=== PATIENT | female | born 2000 | race Hispanic/Latino ===

== ENCOUNTER 2021-04-07 10:13 | Emergency (ER) | payer OTHER, SELFPAY ==
--- OUTSIDE RECORDS SUMMARY | 2021-04-07 10:17 | XMS REPORT | Continuity of Care Document ---
:2000 Author Organization [facility] t Address [address] [place] [address] Care Team Providers Name Role Phone Unavailable Unavailable Unavailable Problems This patient has no known problems. Allergies, Adverse Reactions, Alerts This patient has no known allergies or adverse reactions. Medications This patient has no known medications. Procedures This patient has no known procedures. Encounters Start End Encounter Admission Attending Care Care Encounter Source Date/Time Date/Time Type Type Clinicians Facility Department ID 2018-06-20 Inpatient E [facility] [address] [facility] 22:38:00 2018-07-06 2018-07-06 Outpatient E [id number] 15:12:00 15:12:00 2018-07-04 2018-07-04 Emergency E [facility] [address] [facility] 18:56:00 18:56:00 2018-05-01 2018-05-01 Emergency E [facility] [id number] 07:59:00 07:59:00 [facility] 2018-04-29 2018-04-29 Outpatient [facility] [id number] 05:13:00 05:13:00 [facility] Results This patient has no known results.
--- NOTE | 2021-04-07 12:46 | ER ---
Nurse's Notes [facility] Name: Morena Fuentes Age: 20 yrs Sex: Female : 2000 Arrival Date: 04/07/2021 Time: 10:23 Bed Treatment Private MD: Diagnosis: Acute streptococcal tonsillitis, unspecified Presentation: 04/07 11:36 Chief complaint: Patient states: cough, chills and body aches, and difficulty breathing vg1 began yesterday. Denies NVD. Coronavirus screen: Vaccine status: Patient reports receiving the 2nd dose of the covid vaccine. Client denies travel out of the [place] in the last 14 days. Client presents with at least one sign or symptom that may indicate coronavirus-19. Standard/surgical mask placed on the client. Ebola Screen: Patient negative for fever greater than or equal to 101.5 degrees Fahrenheit, and additional compatible Ebola Virus Disease symptoms. Initial Sepsis Screen: Does the patient meet any 2 criteria? No. Patient's initial sepsis screen is negative. Does the patient have a suspected source of infection? No. Patient's initial sepsis screen is negative. Risk Assessment: Do you want to hurt yourself or someone else? Patient reports no desire to harm self or others. Onset of symptoms was April 06, 2021. 11:36 Method Of Arrival: Ambulatory vg1 11:36 Acuity: OSCAR 4 vg1 Triage Assessment: 11:38 General: Appears in no apparent distress. comfortable, Behavior is calm, cooperative. vg1 Pain: Complains of pain in generalized body aches Pain currently is 9 out of 10 on a pain scale. Neuro: Level of Consciousness is awake, alert, obeys commands, Oriented to person, place, time, situation. Respiratory: Airway is patent Respiratory effort is even, unlabored. 19:08 General: Appears. 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 - Social history:: Smoking status: Patient reports the use of cigarette tobacco products, denies chronic smoking, but will smoke occasionally. Screenin:56 Abuse screen: Denies threats or abuse. Denies injuries from another. Nutritional iw screening: No deficits noted. Tuberculosis screening: No symptoms or risk factors identified. Fall Risk None identified. Assessment: 12:40 General: Appears in no apparent distress. Behavior is calm, cooperative. Neuro: Level iw of Consciousness is awake, alert, obeys commands, Oriented to person, place, time, situation, Moves all extremities. Full function. Respiratory: Respiratory effort is even, unlabored, Respiratory pattern is regular. Derm: Skin is intact, is healthy with good turgor. Vital Signs: 11:36 BP 133 / 85; Pulse 90; Resp 16; Temp 97.9; Pulse Ox 100% ; Weight 104.33 kg; Height 5 vg1 ft. 5 in. (165.10 cm); Pain 9/10; 11:36 Body Mass Index 38.27 (104.33 kg, 165.10 cm) vg1 ED Course: 10:23 Patient arrived in ED. ds1 11:38 Triage completed. vg1 11:38 Arm band placed on. vg1 11:41 COVID swab sent to lab. Flu and/or RSV swab sent to lab. Strep swab sent to lab. vg1 12:40 Patient has correct armband on for positive identification. iw 12:45 [facility] jr8 12:45 Ariela Ahmadi MD is Attending Physician. jr8 12:52 Jaqueline Da Silva, RN is Primary Nurse. iw 12:56 No provider procedures requiring assistance completed. Patient did not have IV access iw during this emergency room visit. Administered Medications: No medications were administered Outcome: 12:45 Discharge ordered by . jr8 12:56 Discharged to home ambulatory. iw 12:56 Condition: good 12:56 Discharge instructions given to patient, Instructed on discharge instructions, follow up and referral plans. medication usage, Demonstrated understanding of instructions, follow-up care, medications, Prescriptions given X 1. 12:57 Patient left the ED. iw Signatures: Kailey Tyler ds1 Jaqueline Da Silva, RN RN iw Remington Michelle PA PA jr8 Julisa Fan RN RN vg1 Corrections: (The following items were deleted from the chart) 19:03 14:00 General: Appears iw iw
--- NOTE | 2021-04-07 12:46 | EDPHYS ---
Physician Documentation [facility] Name: Morena Fuentes Age: 20 yrs Sex: Female : 2000 Arrival Date: 04/07/2021 Time: 10:23 Bed Treatment Private MD: ED Physician Ariela Ahmadi HPI: 04/07 12:51 This 20 yrs old Female presents to ER via Ambulatory with complaints of Cough, jr8 Body Aches, sore throat. 12:51 The patient or guardian reports cough, that is intermittent, described as mild. Onset: jr8 The symptoms/episode began/occurred gradually. Severity of symptoms: At their worst the symptoms were mild, in the emergency department the symptoms are unchanged. Modifying factors: The symptoms are alleviated by nothing, the symptoms are aggravated by nothing. Associated signs and symptoms: Pertinent positives: sore throat. The patient has not experienced similar symptoms in the past. The patient has not recently seen a physician. 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 - Social history:: Smoking status: Patient reports the use of cigarette tobacco products, denies chronic smoking, but will smoke occasionally. ROS: 12:51 Cardiovascular: Negative for chest pain, palpitations, and edema, Abdomen/GI: Negative jr8 for abdominal pain, nausea, vomiting, diarrhea, and constipation, Neuro: Negative for headache, weakness, numbness, tingling, and seizure. 12:51 Constitutional: Positive for body aches. 12:51 ENT: Positive for sore throat. 12:51 Respiratory: Positive for cough, Negative for shortness of breath, sputum production, wheezing. 12:51 All other systems are negative. Exam: 12:51 Constitutional: This is a well developed, well nourished patient who is awake, alert, jr8 and in no acute distress. ENT: Nares patent. No nasal discharge, no septal abnormalities noted. Tympanic membranes are normal and external auditory canals are clear. Oropharynx with redness. No swelling, or masses, exudates, or evidence of obstruction, uvula midline. Mucous membranes moist. Neck: Trachea midline, no thyromegaly or masses palpated, and no cervical lymphadenopathy. Supple, full range of motion without nuchal rigidity, or vertebral point tenderness. No Meningismus. Cardiovascular: Regular rate and rhythm with a normal S1 and S2. No gallops, murmurs, or rubs. Normal PMI, no JVD. No pulse deficits. Respiratory: Lungs have equal breath sounds bilaterally, clear to auscultation and percussion. No rales, rhonchi or wheezes noted. No increased work of breathing, no retractions or nasal flaring. Abdomen/GI: Soft, non-tender, with normal bowel sounds. No distension or tympany. No guarding or rebound. No evidence of tenderness throughout. Back: No spinal tenderness. No costovertebral tenderness. Full range of motion. Skin: Warm, dry with normal turgor. Normal color with no rashes, no lesions, and no evidence of cellulitis. MS/ Extremity: Pulses equal, no cyanosis. Neurovascular intact. Full, normal range of motion. Neuro: Awake and alert, GCS 15, oriented to person, place, time, and situation. Cranial nerves II-XII grossly intact. Motor strength 5/5 in all extremities. Sensory grossly intact. Vital Signs: 11:36 BP 133 / 85; Pulse 90; Resp 16; Temp 97.9; Pulse Ox 100% ; Weight 104.33 kg; Height 5 vg1 ft. 5 in. (165.10 cm); Pain 9/10; 11:36 Body Mass Index 38.27 (104.33 kg, 165.10 cm) vg1 MDM: 12:45 Data reviewed: vital signs, nurses notes, lab test result(s), and as a result, I will jr8 discharge patient. Data interpreted: Pulse oximetry: on room air is 100 %. Interpretation: normal. Counseling: I had a detailed discussion with the patient and/or guardian regarding: the historical points, exam findings, and any diagnostic results supporting the discharge/admit diagnosis, lab results, the need for outpatient follow up, a family practitioner, to return to the emergency department if symptoms worsen or persist or if there are any questions or concerns that arise at home. 12:45 Patient medically screened. jr8 04/07 11:00 Order name: COVID-19/FLU A+B (Document "Date of Onset" if Symptomatic) ss 04/07 11:40 Order name: Strep; Complete Time: 12:52 vg1 Administered Medications: No medications were administered Disposition: 17:05 Co-signature as Attending Physician, Ariela Ahmadi MD. ma2 Disposition Summary: 04/07/21 12:45 Discharge Ordered Location: Home jr8 Problem: new jr8 Symptoms: have improved jr8 Condition: Stable jr8 Diagnosis - Acute streptococcal tonsillitis, unspecified jr8 Followup: jr8 - With: Private Physician - When: 1 week - Reason: Recheck today's complaints, Continuance of care, Re-evaluation by your physician Discharge Instructions: - Discharge Summary Sheet jr8 - Strep Throat, Adult jr8 Forms: - Medication Reconciliation Form jr8 - Work release form iw - Family Work Release ss - Thank You Letter jr8 - Antibiotic Education jr8 - Prescription Opioid Use jr8 Prescriptions: - Amoxicillin 875 mg Oral Tablet - take 1 tablet by ORAL route every 12 hours for 10 days; 20 tablet; Refills: 0, jr8 Product Selection Permitted Signatures: Dispatcher [employer] Remington Cardenas PA PA jr8 Ariela Ahmadi MD MD ma2 Julisa Fan RN RN vg1
[2021-04-07 13:02] VITALS: BP 133/85; TEMP 97.9; O2SAT 100
[2021-04-07 13:02] LABS: SARS-COV-2 RT PCR POSITIVE (NEGATIVE)
== END 2021-04-07 12:57 | disposition home or self-care (01) ==
LOC: ER 10:13
DX: U07.1 COVID-19 (principal); J03.00 Acute streptococcal tonsillitis, unspecified; E11.9 Type 2 diabetes mellitus without complications; F17.210 Nicotine dependence, cigarettes, uncomplicated
CPT/HCPCS: 0240U; 87081; 99283

== ENCOUNTER 2022-10-15 01:33 | Emergency (ER) | payer OTHER, SELFPAY ==
--- OUTSIDE RECORDS SUMMARY | 2022-10-15 01:42 | XMS REPORT | Continuity of Care Document ---
:2000 Author Organization [facility] t Address [address] [facility] [address] [place] [address] Care Team Providers Name Role Phone PCP, PATIENT DOES NOT HAVE A Primary Care Physician Unavaila NA Cross Attending Clinician Unavailable Na Marroquin Attending Clinician Radha Carrasco Attending Clinician Linda Summers Attending Clinician Nav Barahona Attending Clinician [phone] Charlotte Redmond Attending Clinician Nito Tamayo Attending Clinician Ling Matthews Attending Clinician Unavailable Cornelio Vazquez Attending Clinician Kady Suarez Attending Clinician NA GROVES Admitting Clinician Unavailable Radha Carrasco Admitting Clinician Nav Barahona Admitting Clinician Nito Tamayo Admitting Clinician Problems Condition Condition Condition Status Onset Resolution Last Treating Co mments Source Name Details Category Date Date Treatment Clinician Date CELLULITIS CELLULITI Diagnosis Active 2018-07-08 Memoria OF FOOT S OF FOOT 07-05 11:25:00 l Active 00:00: [place] 07/05/2018 00 [facility] FOOR PAIN FOOR PAIN Diagnosis Active 2018-07-05 Memoria Active 07-05 22:55:00 l 07/05/2018 00:00: Onesimo lucas [address] [facility] LEFT ANKLE LEFT Diagnosis Active 2018-07-04 Memoria WOUND ANKLE 07-04 22:36:00 l WOUND 00:00: [place] Active 00 07/04/2018 [facility] FOOT LAC FOOT LAC Diagnosis Active 2018-06-20 Memoria Active 06-20 18:14:00 l 06/20/2018 00:00: Onesimo lucas [address] L FOOT L FOOT Diagnosis Active 2018-06-21 Me moria INFECTION INFECTION 06-20 09:48:00 l Active 00:00: [place] 06/20/2018 00 [facility] LEG PAIN LEG PAIN Diagnosis Active 2018-07-05 Memoria Active 05-01 16:44:00 l 05/01/2018 00:00: Onesimo lucas 00 [facility] [id number] Diagnosis Active 2018-07-05 Memoria [id number] 04-24 16:44:00 l 620,M95.8, 7620,M95.8 00:00: [place] S93.492A, ,S93.492A, 00 Active 04/24/2018 [facility] FALL/ LEFT FALL/ Diagnosis Active 2017-042018-02-11 Memoria ANKLE LEFT ANKLE 04-08 06:34:00 l INJURY INJURY 00:00: [place] Active 00 02/06/2018 [facility] SLEEP SLEEP Diagnosis Active 2016-09-10 Mem oria PROBLEMS PROBLEMS 07-26 15:34:00 l Active 00:00: [place] 07/26/2016 00 [facility] INFECTION INFECTION Diagnosis Active 2013-042014-02-11 Memoria Active 04-12 01:17:00 l 02/10/2014 00:00: Onesimo lucas [address] [facility] Other Other Problem 2018-11-18 Memor ia acute acute 14:24:29 l postproced postproced [place] ural pain ural pain 11/18/2018 [facility] Displaced Displaced Problem 2018-08-26 Memoria dome dome 14:51:44 l fracture fracture Onesimo n of left of left talus, talus, initial initial encounter encounter for closed for closed fracture fracture 08/26/2018 [facility] Type 2 Type 2 Problem 2018-11-18 Michel sanju diabetes diabetes 14:24:29 l mellitus mellitus Onesimo n without without complicati complicati ons ons 11/18/2018 [facility] Other fall Other Problem 2018-08-26 M emoria on same fall on 14:51:44 l level, same Bladimir initial level, encounter initial encounter 08/26/2018 [facility] Overexerti Overexert Problem 2018-08-26 Memoria on from ion from 14:51:44 l prolonged prolonged Herm leidy static or static or awkward awkward postures, postures, initial initial encounter encounter 08/26/2018 [facility] 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 Memoria (current) (current) 14:24:29 l use of use of [place] insulin insulin 11/18/2018 [facility] Obesity, Obesity, Problem 2018-11-18 Memoria unspecifie unspecifie 14:24:29 l d d [place] 11/18/2018 [facility] Sprain of Sprain of Problem 2018-09-12 Memoria unspecifie unspecifie 11:23:03 l d ligament d ligament He rmann of left of left ankle, ankle, initial initial encounter encounter 09/12/2018 [facility] Displaced Displaced Problem 2018-09-12 Memoria fracture fracture 11:23:03 l of fifth of fifth Onesimo n metatarsal metatarsal bone, left bone, left foot, foot, initial initial encounter encounter for closed for closed fracture fracture 09/12/2018 [facility] Sprain of Sprain Problem 2018-11-16 Memoria calcaneofi of 11:51:05 l bular calcaneofi Onesimo n ligament bular of left ligament ankle, of left initial ankle, encounter initial encounter 11/16/2018 [facility] Other Other Problem 2018-11-16 Memor ia acquired acquired 11:51:05 l deformitie deformitie He rmann s of left s of left foot foot 11/16/2018 [facility] Osteophyte Osteophyt Problem 2018-11-16 Memoria , left e, left 11:51:05 l ankle ankle [place] 11/16/2018 [facility] Scar Scar Problem 2018-11-16 Memor ia conditions conditions 11:51:05 l and and [place] fibrosis fibrosis of skin of skin 11/16/2018 [facility] Diabetes Diabetes Problem Active 2018-11-18 Memoria mellitus mellitus 14:24:29 l type 1 type 1 [place] (disorder) (disorder) Active Problem 11/18/2018 [facility] Obesity Obesity Problem Active 2018-11-18 M emoria (disorder) (disorder) 14:24:29 l Active [place] Problem 11/18/2018 [facility] [place] Sprain of Sprain Problem Active 2018-11-18 Memoria ankle of ankle 14:24:29 l (disorder) (disorder) He rmann Active Problem 11/18/2018 left ankle [facility] [place] Acute pain Acute Problem Active 2018-11-18 M emoria (finding) pain 14:24:29 l (finding) [place] Active Problem 11/18/2018 [facility] [place] Systemic Systemic Problem Active 2018-11-18 Memoria infection infection 14:24:29 l (disorder) (disorder) He rmann Active Problem 11/18/2018 [facility] [place] LOCAL LOCAL Diagnosis Active 2018-06-21 Mem oria INFECTION INFECTION 09:48:00 l OF THE OF THE [place] SKIN AND SKIN AND SUBCUTAN SUBCUTAN Active [facility] CELLULITIS Diagnosis Active 2018-07-08 Memoria OF LEFT CELLULITIS 11:25:00 l LOWER LIMB OF LEFT Nancy nn LOWER LIMB Active [facility] History of Past Illness Condition Condition Condition Status Onset Resolution Last Treating Co mments Source Name Details Category Date Date Treatment Clinician Date Pain in Pain in Problem 2019-0 2018-11-18 2018-11-18 Memoria left leg left leg 2-07 14:24:29 14:24:29 l 05/09/2018 08:18: Onesimo n 11/18/2018 13 [facility] Other Other Problem 2018-11-18 2018-11-18 M emoria specified specified 05-01 14:24:29 14:24:29 l postproced postproced 06:00: Wood jewel ural ural 00 states states 05/01/2018 11/18/2018 [facility] Sprain of Sprain Problem 2018-11-16 2018-11-16 Memoria other of other - 11:51:05 11:51:05 l ligament ligament 05:22: Onesimo lucas of left of left 04 ankle, ankle, initial initial encounter encounter 05/07/2018 11/16/2018 [facility] Other Other Problem 2017-042018-09-12 2018-09-12 M emoria specified specified 04-30 11:23:03 11:23:03 l acquired acquired 07:03: Onesimo lucas deformitie deformitie 16 s of s of musculoske musculoske letal letal system system 02/28/2018 09/12/2018 [facility] [place] Displaced Displaced Problem 2017-042018-08-26 2018-08-26 Memoria dome dome 04-08 14:51:44 14:51:44 l fracture fracture 06:00: Onesimo lucas of of 00 unspecifie unspecifie d talus, d talus, initial initial encounter encounter for closed for closed fracture fracture 02/06/2018 08/26/2018 [facility] Displaced Displaced Problem 2017-042018-08-26 2018-08-26 Memoria fracture fracture 04-08 14:51:44 14:51:44 l of fifth of fifth 06:00: Onesimo lucas metatarsal metatarsal 00 bone, bone, unspecifie unspecifie d foot, d foot, initial initial encounter encounter for closed for closed fracture fracture 02/06/2018 08/26/2018 [facility] Local Local Problem 2018-06-29 2018-06-29 Memoria infection infection - 22:39:31 22:39:31 l of the of the 05:00: Bladimir skin and skin and 00 subcutaneo subcutaneo us tissue, us tissue, unspecifie unspecifie d d 06/20/2018 06/29/2018 [facility] Discharge Discharge Problem 2013-042014-02-14 2014-02-14 Memjanice Diagnosis: Diagnosis: 1-12 04:14:13 04:14:13 l Ingrown Ingrown 06:00: [place] toenail toenail 00 02/11/[address] [facility] Allergies, Adverse Reactions, Alerts Allergy Allergy Status Severity Reaction(s) Onset Inactive Treating Comm ents Source Name Type Date Date Clinician NO KNOWN Drug Active [facility] ALLERGIE Class ity of S [facility] No Known No Known Active Memori a Medicati Medicati l on on [place] Allergie Allergie s s Social History Social Habit Start Date Stop Date Quantity Comments Source Exposure to 2022-06-02 2022-06-12 Not sure [facility] SARS-CoV-2 (event) 00:00:00 19:34:00 Medica l Branch Social History 2018-07-06 2018-07-06 [facility] Libby carpio 09:31:48 09:31:48 Sex Assigned At [birth year] [facility] 00:00:00 00:00:00 Medical Branch Smoking Status Start Date Stop Date Source Never smoked tobacco [facility] Medications Ordered Filled Start Stop Current Ordering Indication Dosage Frequency Signature Comments Components Source Medication Medication Date Date Medication? Clinician (SIG) Name Name methocarbam 2022- No 1000mg 1,000 mg, Univers oL 06-13 Oral, ity of (ROBAXIN) 00:45: 00:53 ONCE, [place] tablet [place] :00 dose, On Medical 1,000 mg Mon Branch 06/12/22 at 1945, MANUEL ketorolac 2022- No 30mg 30 mg, Unive rs (TORADOL) 06-13 Intramuscu ity of injection 00:45: 00:55 lar, ONCE, [place] 30 mg 00 :00 1 dose, On Medical Mon Branch 06/12/22 at 1945, MANUEL ibuprofen Yes [id number] 800mg Take 1 [facility] 800 mg 06-12 105 tablet by ity of tablet 00:00: mouth [place] [id number] every 6 Medical (six) Branch hours as needed for Pain (scale 4-6) or Pain (scale 1-3). methocarbam Yes [id number] 500mg Take 1 [facility] oL 500 mg 3-13 105 tablet by ity o f tablet 00:00: mouth 4 [place] 00 (four) Medical times Branch daily as needed for Pain (scale 7-10) or Pain (scale 4-6). Clotrimazol No Notes: For Memoria e 10 MG/ML 4-06 external l Topical 22:00: use only. Nancy nn Cream 00 (Same As: Lotrimin AF, Mycelex) Clotrimazol No Notes: For Memoria e 10 MG/ML 4-06 external l Topical 22:00: use only. Nancy nn Cream 00 (Same As: Lotrimin AF, Mycelex) Clotrimazol No Notes: For Memoria e 10 MG/ML 4-06 external l Topical 22:00: use only. Nancy nn Cream 00 (Same As: Lotrimin AF, Mycelex) Clotrimazol Yes 1 appl, Mem oria e 10 MG/ML 4-06 TOP, BID, l Topical 20:16: X 7 day, # Herm leidy Cream 00 12 gm, 0 Refill(s), Pharmacy: [facility] Clotrimazol Yes 1 appl, Mem oria e 10 MG/ML 4-06 TOP, BID, l Topical 20:16: X 7 day, # Herm leidy Cream 00 12 gm, 0 Refill(s), Pharmacy: [facility] Clotrimazol Yes 1 appl, Mem oria e 10 MG/ML 4-06 TOP, BID, l Topical 20:16: X 7 day, # Herm leidy Cream 00 12 gm, 0 Refill(s), Pharmacy: [facility] Docusate No Notes: Memoria 07-06 (Same as: l 14:00: Colace) [place] (Do Not Crush) Vancomycin No 1 gm, Memori a 07-06 Route: IV, l 14:00: Q12H, [place] 00 Dosing Weight 79.545, kg, Start date: 07/06/18 9:00:00 CDT, Duration: 7 day, Stop date: 07/12/18 21:00:00 CDT, ABX Indication : Bone/Joint Infection Docusate No Notes: Memoria 07-06 (Same as: l 14:00: Colace) [place] (Do Not Crush) Vancomycin No 1 gm, Memori a 07-06 Route: IV, l 14:00: Q12H, [place] 00 Dosing Weight 79.545, kg, Start date: 07/06/18 9:00:00 CDT, Duration: 7 day, Stop date: 07/12/18 21:00:00 CDT, ABX Indication : Bone/Joint Infection Docusate No Notes: Memoria 07-06 (Same as: l 14:00: Colace) [place] 00 (Do Not Crush) Vancomycin No 1 gm, Memori a 07-06 Route: IV, l 14:00: Q12H, [place] 00 Dosing Weight 79.545, kg, Start date: 07/06/18 9:00:00 CDT, Duration: 7 day, Stop date: 07/12/18 21:00:00 CDT, ABX Indication : Bone/Joint Infection cefepime No Notes: Memoria 07-06 (Same As: l 13:00: Maxipime) [place] 00 MEDICATION WASTE Product Size: 1000 mg Product Wasted: ___ mg cefepime No Notes: Memoria 07-06 (Same As: l 13:00: Maxipime) [place] 00 MEDICATION WASTE Product Size: 1000 mg Product Wasted: ___ mg cefepime No Notes: Memoria 07-06 (Same As: l 13:00: Maxipime) [place] 00 MEDICATION WASTE Product Size: 1000 mg Product Wasted: ___ mg Enoxaparin No 40 mg, Memor ia 07-06 Route: l 12:00: SUB-Q, [place] 00 Drug form: INJ, [id number], Dosing Weight 79.545, kg, Start date: 07/06/18 7:00:00 CDT, Duration: 30 day, Stop date: 08/04/18 7:00:00 CDT Lovenox 0 No Notes: Memoria 07-06 (Same as: l 12:00: Lovenox) Enoxaparin No 40 mg, Memor ia 07-06 Route: l 12:00: SUB-Q, Drug form: INJ, [id number], Dosing Weight 79.545, kg, Start date: 07/06/18 7:00:00 CDT, Duration: 30 day, Stop date: 08/04/18 7:00:00 CDT Lovenox No Notes: Memoria 07-06 (Same as: l 12:00: Lovenox) Enoxaparin No 40 mg, Memor ia 07-06 Route: l 12:00: SUB-Q, Drug form: INJ, [id number], Dosing Weight 79.545, kg, Start date: 07/06/18 7:00:00 CDT, Duration: 30 day, Stop date: 08/04/18 7:00:00 CDT Lovenox No Notes: Memoria - (Same as: l 12:00: Lovenox) Acetaminoph No Notes: Michel sanju en 325 MG / 07-06 (Same as: l Hydrocodone 11:14: [place] Nancy nn Bitartrate 00 325/5) Do 5 MG Oral not exceed Tablet 4gm/day of [[place] acetaminop 5/325] hen. Acetaminoph No Notes: Michel sanju en 325 MG / 07-06 (Same as: l Hydrocodone 11:14: [place] Nancy nn Bitartrate 00 325/5) Do 5 MG Oral not exceed Tablet 4gm/day of [[place] acetaminop 5/325] hen. Acetaminoph No Notes: Michel sanju en 325 MG / 07-06 (Same as: l Hydrocodone 11:14: [place] Nancy nn Bitartrate 00 325/5) Do 5 MG Oral not exceed Tablet 4gm/day of [[place] acetaminop 5/325] hen. Insulin No Notes: Memoria Lispro 07-06 (Same as: l 11:06: Humalog ) Roll in palms of hands gently; Do not shake `vigorousl y. "Single Patient Use Only " WASTE: F/P - Black; E - Municipal Trash Bin Stable for 28 days at room temperatur e. Expires in days from ____Date Glucagon 2019-0 No 1 mg, Memoria 07-06 Route: IM, l 11:06: Drug form: [place] 00 PDR/INJ, PRN, Dosing Weight 79.545, kg, PRN Blood Glucose Results, Start date: 07/06/18 6:06:00 CDT, Duration: 30 day, Stop date: 08/05/18 6:05:00 CDT Dextrose 2019-0 No 12.5 gm, Memor ia 50% Syringe 07-06 25 mL, l 11:06: Route: [place] 00 IVP, Drug Form: INJ, Dosing Weight 79.545, kg, PRN, PRN Blood Glucose Results, Start date: 07/06/18 6:06:00 CDT, Duration: 30 day, Stop date: 08/05/18 6:05:00 CDT Insulin 2019-0 No Notes: Memoria Lispro 07-06 (Same as: l 11:06: Humalog ) Roll in palms of hands gently; Do not shake `vigorousl y. "Single Patient Use Only " WASTE: F/P - Black; E - Municipal Trash Bin Stable for 28 days at room temperatur e. Expires in days from ____Date Glucagon 2018-0 No 1 mg, Memoria 07-06 Route: IM, l 11:06: Drug form: [place] 00 PDR/INJ, PRN, Dosing Weight 79.545, kg, PRN Blood Glucose Results, Start date: 07/06/18 6:06:00 CDT, Duration: 30 day, Stop date: 08/05/18 6:05:00 CDT Dextrose 2019-0 No 12.5 gm, Memor ia 50% Syringe 07-06 25 mL, l 11:06: Route: [place] 00 IVP, Drug Form: INJ, Dosing Weight 79.545, kg, PRN, PRN Blood Glucose Results, Start date: 07/06/18 6:06:00 CDT, Duration: 30 day, Stop date: 08/05/18 6:05:00 CDT Insulin 2019-0 No Notes: Memoria Lispro 07-06 (Same as: l 11:06: Humalog ) [place] 00 Roll in palms of hands gently; Do not shake `vigorousl y. "Single Patient Use Only " WASTE: F/P - Black; E - Municipal Trash Bin Stable for 28 days at room temperatur e. Expires in days from ____Date Glucagon 2019-0 No 1 mg, Memoria 07-06 Route: IM, l 11:06: Drug form: [place] 00 PDR/INJ, PRN, Dosing Weight 79.545, kg, PRN Blood Glucose Results, Start date: 07/06/18 6:06:00 CDT, Duration: 30 day, Stop date: 08/05/18 6:05:00 CDT Dextrose 2019-0 No 12.5 gm, Memor ia 50% Syringe 07-06 25 mL, l 11:06: Route: [place] 00 IVP, Drug Form: INJ, Dosing Weight 79.545, kg, PRN, PRN Blood Glucose Results, Start date: 07/06/18 6:06:00 CDT, Duration: 30 day, Stop date: 08/05/18 6:05:00 CDT normal 2019-0 No 1,000 mL, Memori a saline 0.9% 07-06 Rate: 100 l IV 1,000 mL 11:01: ml/hr, Herm leidy 00 Infuse over: 10 hr, Route: IV, Dosing Weight 79.545 kg, Total Volume: 1,000, Start date: 07/06/18 6:01:00 CDT, Duration: 1 day, Stop date: 07/07/18 6:00:00 CDT, 1.93, m2 normal 2019-0 No 1,000 mL, Memori a saline 0.9% 07-06 Rate: 100 l IV 1,000 mL 11:01: ml/hr, Herm leidy 00 Infuse over: 10 hr, Route: IV, Dosing Weight 79.545 kg, Total Volume: 1,000, Start date: 07/06/18 6:01:00 CDT, Duration: 1 day, Stop date: 07/07/18 6:00:00 CDT, 1.93, m2 normal 2019-0 No 1,000 mL, Memori a saline 0.9% 07-06 Rate: 100 l IV 1,000 mL 11:01: ml/hr, Infuse over: 10 hr, Route: IV, Dosing Weight 79.545 kg, Total Volume: 1,000, Start date: 07/06/18 6:01:00 CDT, Duration: 1 day, Stop date: 07/07/18 6:00:00 CDT, 1.93, m2 Glucagon 2019-0 No 1 mg, Memoria - Route: IM, l 07:38: Drug form: PDR/INJ, PRN, Dosing Weight 79.545, kg, PRN Blood Glucose Results, Start date: 07/06/18 2:38:00 CDT, Duration: 30 day, Stop date: 08/05/18 2:37:00 CDT Dextrose 2019-0 No 25 gm, 50 Michel sanju 50% Syringe 4-06 mL, Route: l 07:38: IVP, Drug Form: INJ, Dosing Weight 79.545, kg, PRN, PRN Blood Glucose Results, Start date: 07/06/18 2:38:00 CDT, Duration: 30 day, Stop date: 08/05/18 2:37:00 CDT Acetaminoph 2018-0 No Notes: Do M emoria en 07-06 not exceed l 07:38: 4 gm/day. (Same as: Tylenol) Ondansetron 2018-0 No Notes: Michel sanju 07-06 (Same as: l 07:38: Zofran) MEDICATION WASTE Product Size: 4 mg Product Wasted: ___ mg Glucagon 2019-0 No 1 mg, Memoria - Route: IM, l 07:38: Drug form: [place] 00 PDR/INJ, PRN, Dosing Weight 79.545, kg, PRN Blood Glucose Results, Start date: 07/06/18 2:38:00 CDT, Duration: 30 day, Stop date: 08/05/18 2:37:00 CDT Dextrose 2019-0 No 25 gm, 50 Michel sanju 50% Syringe 4-06 mL, Route: l 07:38: IVP, Drug Form: INJ, Dosing Weight 79.545, kg, PRN, PRN Blood Glucose Results, Start date: 07/06/18 2:38:00 CDT, Duration: 30 day, Stop date: 08/05/18 2:37:00 CDT Acetaminoph No Notes: Do M emoria en -06 not exceed l 07:38: 4 gm/day. [place] 00 (Same as: Tylenol) Ondansetron No Notes: Michel sanju 06 (Same as: l 07:38: Zofran) MEDICATION WASTE Product Size: 4 mg Product Wasted: ___ mg Glucagon No 1 mg, Memoria 07-06 Route: IM, l 07:38: Drug form: [place] 00 PDR/INJ, PRN, Dosing Weight 79.545, kg, PRN Blood Glucose Results, Start date: 07/06/18 2:38:00 CDT, Duration: 30 day, Stop date: 08/05/18 2:37:00 CDT Dextrose No 25 gm, 50 Michel sanju 50% Syringe 4-06 mL, Route: l 07:38: IVP, Drug Form: INJ, Dosing Weight 79.545, kg, PRN, PRN Blood Glucose Results, Start date: 07/06/18 2:38:00 CDT, Duration: 30 day, Stop date: 08/05/18 2:37:00 CDT Acetaminoph No Notes: Do M emoria en - not exceed l 07:38: 4 gm/day. [place] (Same as: Tylenol) Ondansetron No Notes: Michel sanju -06 (Same as: l 07:38: Zofran) MEDICATION WASTE Product Size: 4 mg Product Wasted: ___ mg Acetaminoph No Notes: Michel sanju en 325 MG / 07-06 (Same as: l Hydrocodone 05:20: [place] Nancy nn Bitartrate 00 325/5) Do 5 MG Oral not exceed Tablet 4gm/day of [[place] acetaminop 5/325] hen. Acetaminoph No Notes: Michel sanju en 325 MG / 06 (Same as: l Hydrocodone 05:20: [place] Nancy nn Bitartrate 00 325/5) Do 5 MG Oral not exceed Tablet 4gm/day of [[place] acetaminop 5/325] hen. Acetaminoph No Notes: Michel sanju en 325 MG / 06 (Same as: l Hydrocodone 05:20: [place] Nancy nn Bitartrate 00 325/5) Do 5 MG Oral not exceed Tablet 4gm/day of [[place] acetaminop 5/325] hen. Vancomycin No 2000 mg: Me moria 4-06 infuse l 03:12: over 2.5 [place] 00 hours For adult patients only: Round to nearest 250 mg per Medical Staff approval MEDICATION WASTE Product Size: 1000 mg Product Wasted: ___ mg cefepime No Notes: Memoria 07-06 (Same As: l 03:12: Maxipime) [place] 00 Sodium No 2,000 mL, Memori a Chloride 07-06 2,000 l 0.9% 03:12: ml/hr, [place] (Bolus) IV 00 Infuse Over: 1 hr, Route: IV, 2,000, Drug form: INJ, ONCE, Priority: STAT, Dosing Weight 79.545 kg, Start date: 07/05/18 22:12:00 CDT, Stop date: 07/05/18 22:12:00 CDT Saline No Notes: Memoria Flush 0.9% 07-06 (Same as: l 03:12: BD [place] 00 Posiflush) Vancomycin No 2000 mg: Me moria -06 infuse l 03:12: over 2.5 Bl[place] 00 hours For adult patients only: Round to nearest 250 mg per Medical Staff approval MEDICATION WASTE Product Size: 1000 mg Product Wasted: ___ mg cefepime No Notes: Memoria 4-06 (Same As: l 03:12: Maxipime) [place] 00 Sodium No 2,000 mL, Memori a Chloride 4-06 2,000 l 0.9% 03:12: ml/hr, [place] (Bolus) IV 00 Infuse Over: 1 hr, Route: IV, 2,000, Drug form: INJ, ONCE, Priority: STAT, Dosing Weight 79.545 kg, Start date: 07/05/18 22:12:00 CDT, Stop date: 07/05/18 22:12:00 CDT Saline No Notes: Memoria Flush 0.9% 06 (Same as: l 03:12: BD [place] 00 Posiflush) Vancomycin No 2001 mg: Me moria 4-06 infuse l 03:12: over 2.5 [place] 00 hours For adult patients only: Round to nearest 250 mg per Medical Staff approval MEDICATION WASTE Product Size: 1000 mg Product Wasted: ___ mg cefepime No Notes: Memoria 4-06 (Same As: l 03:12: Maxipime) [place] 00 Sodium No 2,000 mL, Memori a Chloride 07-06 2,000 l 0.9% 03:12: ml/hr, [place] (Bolus) IV 00 Infuse Over: 1 hr, Route: IV, 2,000, Drug form: INJ, ONCE, Priority: STAT, Dosing Weight 79.545 kg, Start date: 07/05/18 22:12:00 CDT, Stop date: 07/05/18 22:12:00 CDT Saline No Notes: Memoria Flush 0.9% 07-06 (Same as: l 03:12: BD [place] 00 Posiflush) Oxycodone Yes 5 mg = 1 Michel sanju Hydrochlori 3-28 tab, PO, l de 5 MG 12:20: Q4H, PRN Onesimo n Oral Tablet 00 Pain Score 4-6, 0 Refill(s) Insulin Yes 3 unit, Memoria Lispro 100 3-28 SUB-Q, l UNT/ML 12:20: TID-Before Nancy nn Injectable 00 Meals, # Solution 10 mL, 0 [Humalog] Refill(s), Pharmacy: [facility] [id number] naproxen Yes 500 mg = 1 Mem oria 500 mg oral 3-28 tab, PO, l tablet 12:20: [id number], X Nancy nn 00 7 day, # 14 tab, 0 Refill(s), Pharmacy: [facility] gabapentin 2019-0 Yes 600 mg = 2 M emoria 300 MG Oral 3-28 cap, PO, l Capsule 12:20: Q8Hnow, # Nancy nn 00 84 cap, 0 Refill(s), Pharmacy: [facility] 3 ML 2018-0 Yes 28 unit, Memoria Insulin 3-28 SUB-Q, l Glargine 12:20: Daily, # Nancy nn 100 UNT/ML 00 10 mL, 0 Prefilled Refill(s), Syringe Pharmacy: [Lantus] [facility] Oxycodone 2019-0 Yes 5 mg = 1 Michel sanju Hydrochlori 3-28 tab, PO, l de 5 MG 12:20: Q4H, PRN Onesimo n Oral Tablet 00 Pain Score 4-6, 0 Refill(s) Insulin 2019-0 Yes 3 unit, Memoria Lispro 100 3-28 SUB-Q, l UNT/ML 12:20: TID-Before Nancy nn Injectable 00 Meals, # Solution 10 mL, 0 [Humalog] Refill(s), Pharmacy: [facility] naproxen 2019-0 Yes 500 mg = 1 Mem oria 500 mg oral 3-28 tab, PO, l tablet 12:20: [id number], X Nancy nn 00 7 day, # 14 tab, 0 Refill(s), Pharmacy: [facility] [facility] gabapentin 2018-0 Yes 600 mg = 2 M emoria 300 MG Oral 3-28 cap, PO, l Capsule 12:20: Q8Hnow, # Nancy nn 00 84 cap, 0 Refill(s), Pharmacy: [facility] 3 ML 2019-0 Yes 28 unit, Memoria Insulin 3-28 SUB-Q, l Glargine 12:20: Daily, # Nancy nn 100 UNT/ML 00 10 mL, 0 Prefilled Refill(s), Syringe Pharmacy: [Lantus] [facility] Oxycodone 2019-0 Yes 5 mg = 1 Michel sanju Hydrochlori 3-28 tab, PO, l de 5 MG 12:20: Q4H, PRN Onesimo n Oral Tablet 00 Pain Score 4-6, 0 Refill(s) Insulin 2019-0 Yes 3 unit, Memoria Lispro 100 3-28 SUB-Q, l UNT/ML 12:20: TID-Before Nancy nn Injectable 00 Meals, # Solution 10 mL, 0 [Humalog] Refill(s), Pharmacy: [facility] naproxen 2018- Yes 500 mg = 1 Mem oria 500 mg oral 3-28 tab, PO, l tablet 12:20: [id number], X Nancy nn 00 7 day, # 14 tab, 0 Refill(s), Pharmacy: [facility] gabapentin 2018- Yes 600 mg = 2 M emoria 300 MG Oral 3-28 cap, PO, l Capsule 12:20: Q8Hnow, # Nancy nn 00 84 cap, 0 Refill(s), Pharmacy: [facility] 3 ML 2018-0 Yes 28 unit, Memoria Insulin 3-28 SUB-Q, l Glargine 12:20: Daily, # Nancy nn 100 UNT/ML 00 10 mL, 0 Prefilled Refill(s), Syringe Pharmacy: [Lantus] [facility] Insulin 2019-0 No 28 unit, Memori a Glargine 3-27 0.28 mL, l 100 UNT/ML 14:00: Route: Nancy nn Injectable 00 SUB-Q, Solution Drug form: [Lantus] SOLN, Daily, Dosing Weight 109.091, kg, Start date: 06/26/18 9:00:00 CDT, Duration: 30 day, Stop date: 07/25/18 9:00:00 CDT Insulin 2019-0 No 28 unit, Memori a Glargine 3-27 0.28 mL, l 100 UNT/ML 14:00: Route: Nancy nn Injectable 00 SUB-Q, Solution Drug form: [Lantus] SOLN, Daily, Dosing Weight 109.091, kg, Start date: 06/26/18 9:00:00 CDT, Duration: 30 day, Stop date: 07/25/18 9:00:00 CDT Insulin 2019-0 No 28 unit, Memori a Glargine 3-27 0.28 mL, l 100 UNT/ML 14:00: Route: Nancy nn Injectable 00 SUB-Q, Solution Drug form: [Lantus] SOLN, Daily, Dosing Weight 109.091, kg, Start date: 06/26/18 9:00:00 CDT, Duration: 30 day, Stop date: 07/25/18 9:00:00 CDT Insulin 2019-0 No 3 unit, Memoria Glargine 3-26 0.03 mL, l 100 UNT/ML 20:48: Route: Nancy nn Injectable 00 SUB-Q, Solution Drug form: [Lantus] SOLN, ONCE, Dosing Weight 109.091, kg, Priority: NOW, Start date: 06/25/18 15:48:00 CDT, Stop date: 06/25/18 15:48:00 CDT Insulin 2019-0 No 3 unit, Memoria Glargine 3-26 0.03 mL, l 100 UNT/ML 20:48: Route: Nancy nn Injectable 00 SUB-Q, Solution Drug form: [Lantus] SOLN, ONCE, Dosing Weight 109.091, kg, Priority: NOW, Start date: 06/25/18 15:48:00 CDT, Stop date: 06/25/18 15:48:00 CDT Insulin 2019-0 No 3 unit, Memoria Glargine 3-26 0.03 mL, l 100 UNT/ML 20:48: Route: Nancy nn Injectable 00 SUB-Q, Solution Drug form: [Lantus] SOLN, ONCE, Dosing Weight 109.091, kg, Priority: NOW, Start date: 06/25/18 15:48:00 CDT, Stop date: 06/25/18 15:48:00 CDT Insulin 2019-0 No Notes: Memoria Glargine 3-25 Same as: l 100 UNT/ML 14:00: Lantus) Do H ermann Injectable 00 not hold Solution insulin [Lantus] without contacting prescriber WASTE: F/P - Black; E - [facility] gabapentin No Notes: Memor ia 3-25 (Same as: l 14:00: Neurontin) [place] 00 Insulin No Notes: Memoria Glargine 3-25 Same as: l 100 UNT/ML 14:00: Lantus) Do H ermann Injectable 00 not hold Solution insulin [Lantus] without contacting prescriber WASTE: F/P - Black; E - [facility] gabapentin No Notes: Memor ia 3-25 (Same as: l 14:00: Neurontin) [place] Insulin No Notes: Memoria Glargine 3-25 Same as: l 100 UNT/ML 14:00: Lantus) Do H ermann Injectable 00 not hold Solution insulin [Lantus] without contacting prescriber WASTE: F/P - Black; E - [facility] gabapentin No Notes: Memor ia 3-25 (Same as: l 14:00: Neurontin) [place] Insulin No Notes: Memoria Lispro 3-24 (Same as: l 21:30: Humalog ) [place] 00 Roll in palms of hands gently; Do not shake `vigorousl y. "Single Patient Use Only " WASTE: F/P - Black; E - [facility] Stable for 28 days at room temperatur e. Expires in days from ____Date Insulin No Notes: Memoria Lispro 3-24 (Same as: l 21:30: Humalog ) [place] 00 Roll in palms of hands gently; Do not shake `vigorousl y. "Single Patient Use Only " WASTE: F/P - Black; E - [facility] Stable for 28 days at room temperatur e. Expires in days from ____Date Insulin No Notes: Memoria Lispro 3-24 (Same as: l 21:30: Humalog ) [place] 00 Roll in palms of hands gently; Do not shake `vigorousl y. "Single Patient Use Only " WASTE: F/P - Black; E - [facility] Stable for 28 days at room temperatur e. Expires in days from ____Date Insulin No Notes: Memoria Glargine 3-24 Same as: l 100 UNT/ML 18:02: Lantus) Do H ermann Injectable 00 not hold Solution insulin [Lantus] without contacting prescriber WASTE: F/P - Black; E - [facility] Insulin No Notes: Memoria Glargine 3-24 Same as: l 100 UNT/ML 18:02: Lantus) Do H ermann Injectable 00 not hold Solution insulin [Lantus] without contacting prescriber WASTE: F/P - Black; E - [facility] Insulin No Notes: Memoria Glargine 3-24 Same as: l 100 UNT/ML 18:02: Lantus) Do H ermann Injectable 00 not hold Solution insulin [Lantus] without contacting prescriber WASTE: F/P - Black; E - [facility] Insulin No Notes: Memoria Glargine 3-24 (Same as: l 100 UNT/ML 14:00: Lantus) Do H ermann Injectable 00 not hold Solution insulin [Lantus] without contacting prescriber WASTE: F/P - Black; E - [facility] "single patient use only" Insulin No Notes: Memoria Glargine 3-24 (Same as: l 100 UNT/ML 14:00: Lantus) Do H ermann Injectable 00 not hold Solution insulin [Lantus] without contacting prescriber WASTE: F/P - Black; E - [facility] "single patient use only" Insulin No Notes: Memoria Glargine 3-24 (Same as: l 100 UNT/ML 14:00: Lantus) Do H ermann Injectable 00 not hold Solution insulin [Lantus] without contacting prescriber WASTE: F/P - Black; E - [facility] "single patient use only" Insulin No Notes: Memoria Glargine 3-24 Same as: l 100 UNT/ML 02:31: Lantus) Do H ermann Injectable 00 not hold Solution insulin [Lantus] without contacting prescriber WASTE: F/P - Black; E - [facility] Insulin No Notes: Memoria Glargine 3-24 Same as: l 100 UNT/ML 02:31: Lantus) Do H ermann Injectable 00 not hold Solution insulin [Lantus] without contacting prescriber WASTE: F/P - Black; E - [facility] Insulin 2019-0 No Notes: Memoria Glargine 3-24 Same as: l 100 UNT/ML 02:31: Lantus) Do H ermann Injectable 00 not hold Solution insulin [Lantus] without contacting prescriber WASTE: F/P - Black; E - [facility] vancomycin No 2001 mg: Me moria + Sodium 3-24 infuse l Chloride 02:00: over 2.5 Nancy nn 0.9% IV 500 00 hours For mL adult patients only: Round to nearest 250 mg per Medical Staff approval MEDICATION WASTE Product Size: 1000 mg Product Wasted: ___ mg vancomycin 2018- No 2001 mg: Me moria + Sodium 3-24 infuse l Chloride 02:00: over 2.5 Nancy nn 0.9% IV 500 00 hours For mL adult patients only: Round to nearest 250 mg per Medical Staff approval MEDICATION WASTE Product Size: 1000 mg Product Wasted: ___ mg vancomycin 2018- No 2001 mg: Me moria + Sodium 3-24 infuse l Chloride 02:00: over 2.5 Nancy nn 0.9% IV 500 00 hours For mL adult patients only: Round to nearest 250 mg per Medical Staff approval MEDICATION WASTE Product Size: 1000 mg Product Wasted: ___ mg cefepime No Notes: Memoria 3-23 (Same As: l 23:00: Maxipime) [place] 00 MEDICATION WASTE Product Size: 1000 mg Product Wasted: ___ mg cefepime 2018- No Notes: Memoria 3-23 (Same As: l 23:00: Maxipime) [place] 00 MEDICATION WASTE Product Size: 1000 mg Product Wasted: ___ mg cefepime 2018- No Notes: Memoria 3-23 (Same As: l 23:00: Maxipime) [place] 00 MEDICATION WASTE Product Size: 1000 mg Product Wasted: ___ mg vancomycin 2018- No 2000 mg: Me moria 3-23 infuse l 19:00: over 2.5 [place] 00 hours vancomycin 2019-0 No 2001 mg: Me moria 3-23 infuse l 19:00: over 2.5 [place] 00 hours vancomycin 2019-0 No 2001 mg: Me moria 3-23 infuse l 19:00: over 2.5 [place] 00 hours Insulin No Notes: Memoria Glargine 3-23 (Same as: l 100 UNT/ML 17:17: Lantus) Do H ermann Injectable 00 not hold Solution insulin [Lantus] without contacting prescriber WASTE: F/P - Black; E - [facility] "single patient use only" Insulin No Notes: Memoria Glargine 3-23 (Same as: l 100 UNT/ML 17:17: Lantus) Do H ermann Injectable 00 not hold Solution insulin [Lantus] without contacting prescriber WASTE: F/P - Black; E - [facility] "single patient use only" Insulin No Notes: Memoria Glargine 3-23 (Same as: l 100 UNT/ML 17:17: Lantus) Do H ermann Injectable 00 not hold Solution insulin [Lantus] without contacting prescriber WASTE: F/P - Black; E - [facility] "single patient use only" Versed No 2 mg, Memoria 3-23 Route: l 13:50: IVP, ONCE, Dosing Weight 109.091, kg, Start date: 06/22/18 8:50:00 CDT, Stop date: 06/22/18 8:50:00 CDT Versed 0 No 2 mg, Memoria 3-23 Route: l 13:50: IVP, ONCE, Dosing Weight 109.091, kg, Start date: 06/22/18 8:50:00 CDT, Stop date: 06/22/18 8:50:00 CDT Versed 0 No 2 mg, Memoria 3-23 Route: l 13:50: IVP, ONCE, Dosing Weight 109.091, kg, Start date: 06/22/18 8:50:00 CDT, Stop date: 06/22/18 8:50:00 CDT acetaminoph No Route: PO, Memoria en (ANES) 3-23 Drug form: l 13:28: INJ, ONCE, Stop date: 06/22/18 8:28:00 CDT acetaminoph No Route: PO, Memoria en (ANES) 3- Drug form: l 13:28: INJ, ONCE, [place] 00 Stop date: 06/22/18 8:28:00 CDT acetaminoph No Route: PO, Memoria en (ANES) 3- Drug form: l 13:28: INJ, ONCE, [place] 00 Stop date: 06/22/18 8:28:00 CDT Hydromorpho No Notes: Michel sanju ne 3- Same as l 13:22: Dilaudid [place] Oxycodone No Notes: Memori a 3-23 (Same as: l 13:22: Roxicodone [place] 00 ) Flumazenil No Notes: Memor ia 3- (Same as: l 13:22: Romazicon) [place] Naloxone No Notes: Memoria 3 Same as l 13:22: Narcan Ondansetron No Notes: Michel sanju 3-23 (Same as: l 13:22: Zofran) [place] 00 MEDICATION WASTE Product Size: 4 mg Product Wasted: ___ mg Hydromorpho No Notes: Michel sanju ne 3-23 Same as l 13:22: Dilaudid [place] Oxycodone No Notes: Memori a 3-23 (Same as: l 13:22: Roxicodone [place] 00 ) Flumazenil No Notes: Memor ia 3-23 (Same as: l 13:22: Romazicon) [place] Naloxone No Notes: Memoria 3-23 Same as l 13:22: Narcan [place] Ondansetron No Notes: Michel sanju 3-23 (Same as: l 13:22: Zofran) [place] 00 MEDICATION WASTE Product Size: 4 mg Product Wasted: ___ mg Hydromorpho No Notes: Michel sanju ne 3-23 Same as l 13:22: Dilaudid [place] Oxycodone No Notes: Memori a 3-23 (Same as: l 13:22: Roxicodone ) Flumazenil No Notes: Memor ia 06-22 (Same as: l 13:22: Romazicon) Naloxone No Notes: Memoria 06-22 Same as l 13:22: Narcan Ondansetron No Notes: Michel sanju 06-22 (Same as: l 13:22: Zofran) MEDICATION WASTE Product Size: 4 mg Product Wasted: ___ mg ondansetron No Route: IV, Memoria (ANES) 3- Drug form: l 13:17: INJ, ONCE, Stop date: 06/22/18 8:17:00 CDT ondansetron No Route: IV, Memoria (ANES) - Drug form: l 13:17: INJ, ONCE, Stop date: 06/22/18 8:17:00 CDT ondansetron No Route: IV, Memoria (ANES) 3- Drug form: l 13:17: INJ, ONCE, Stop date: 06/22/18 8:17:00 CDT midazolam 2019-0 No Route: IV, Me moria (ANES) 3- Drug form: l 13:05: SOLN, ONCE, Stop date: 06/22/18 8:05:00 CDT lidocaine 2018-0 No Route: IV, Me moria (ANES) 3- Drug form: l 13:05: INJ, ONCE, Stop date: 06/22/18 8:05:00 CDT propofol 2018-0 No Route: IV, Mem oria (ANES) 3- Drug form: l 13:05: INJ, ONCE, Stop date: 06/22/18 8:05:00 CDT fentaNYL 2019-0 No Route: IV, Mem oria (ANES) 3- Drug form: l 13:05: INJ, ONCE, Stop date: 06/22/18 8:05:00 CDT midazolam 2019-0 No Route: IV, Me moria (ANES) 3-23 Drug form: l 13:05: SOLN, [place] 00 ONCE, Stop date: 06/22/18 8:05:00 CDT lidocaine 2019-0 No Route: IV, Me moria (ANES) 3-23 Drug form: l 13:05: INJ, ONCE, [place] 00 Stop date: 06/22/18 8:05:00 CDT propofol 2019-0 No Route: IV, Mem oria (ANES) 3-23 Drug form: l 13:05: INJ, ONCE, Stop date: 06/22/18 8:05:00 CDT fentaNYL 2019-0 No Route: IV, Mem oria (ANES) 3-23 Drug form: l 13:05: INJ, ONCE, Stop date: 06/22/18 8:05:00 CDT midazolam 2019-0 No Route: IV, Me moria (ANES) 3-23 Drug form: l 13:05: SOLN, [place] ONCE, Stop date: 06/22/18 8:05:00 CDT lidocaine 2019-0 No Route: IV, Me moria (ANES) 3-23 Drug form: l 13:05: INJ, ONCE, Stop date: 06/22/18 8:05:00 CDT propofol 2019-0 No Route: IV, Mem oria (ANES) 3-23 Drug form: l 13:05: INJ, ONCE, Stop date: 06/22/18 8:05:00 CDT fentaNYL 2019-0 No Route: IV, Mem oria (ANES) 3-23 Drug form: l 13:05: INJ, ONCE, Stop date: 06/22/18 8:05:00 CDT Lactated 2019-0 No Route: IV, Mem oria Ringers 3-23 Total l Injection 12:48: Volume: Nancy nn IV (ANES) 00 1,000, 1000 mL Start date: 06/22/18 7:48:00 CDT, Stop date: 06/22/18 8:48:00 CDT Lactated 2019-0 No Route: IV, Mem oria Ringers 3-23 Total l Injection 12:48: Volume: Nancy nn IV (ANES) 00 1,000, 1000 mL Start date: 06/22/18 7:48:00 CDT, Stop date: 06/22/18 8:48:00 CDT Lactated No Route: IV, Mem oria Ringers 3-23 Total l Injection 12:48: Volume: Nancy nn IV (ANES) 00 1,000, 1000 mL Start date: 06/22/18 7:48:00 CDT, Stop date: 06/22/18 8:48:00 CDT vancomycin No Notes: Memor ia 3-23 TIME l 11:30: CRITICAL [place] 00 MEDICATION (Same As: Vancocin) For adult patients only: Round to nearest 250 mg per Medical Staff approval vancomycin No Notes: Memor ia 3-23 TIME l 11:30: CRITICAL [place] 00 MEDICATION (Same As: Vancocin) For adult patients only: Round to nearest 250 mg per Medical Staff approval vancomycin No Notes: Memor ia 3-23 TIME l 11:30: CRITICAL [place] 00 MEDICATION (Same As: Vancocin) For adult patients only: Round to nearest 250 mg per Medical Staff approval sennosides, No Notes: Michel sanju CUSTODIAL 3-23 (Same as: l 02:00: Senokot) [place] 00 sennosides, No Notes: Michel sanju CUSTODIAL 3-23 (Same as: l 02:00: Senokot) [place] 00 sennosides, No Notes: Michel sanju CUSTODIAL 3-23 (Same as: l 02:00: Senokot) [place] 00 Docusate No Notes: Memoria 3-22 (Same as: l 14:00: Colace) [place] 00 (Do Not Crush) Docusate No Notes: Memoria 3-22 (Same as: l 14:00: Colace) [place] 00 (Do Not Crush) Docusate No Notes: Memoria 3-22 (Same as: l 14:00: Colace) [place] 00 (Do Not Crush) Lovenox No Notes: Memoria 3-22 (Same as: l 08:00: Lovenox) [place] 00 Lovenox No Notes: Memoria 3-22 (Same as: l 08:00: Lovenox) [place] 00 Lovenox 2019-0 No Notes: Memoria 3-22 (Same as: l 08:00: Lovenox) [place] 00 Humalog 2019-0 No 15 unit, Memori a 3-22 SUB-Q, l 07:42: Daily, 0 [place] 00 Refill(s) 3 ML 2019-0 No 20 unit, Memoria Insulin 3-22 SUB-Q, l Glargine 07:42: Daily, # 3 Her hook 100 UNT/ML 00 mL, 3 Prefilled Refill(s) Syringe [Lantus] Humalog 2018-0 No 15 unit, Memori a 3-22 SUB-Q, l 07:42: Daily, 0 [place] 00 Refill(s) 3 ML 2019-0 No 20 unit, Memoria Insulin 3-22 SUB-Q, l Glargine 07:42: Daily, # 3 Her hook 100 UNT/ML 00 mL, 3 Prefilled Refill(s) Syringe [Lantus] Humalog 2018-0 No 15 unit, Memori a 3-22 SUB-Q, l 07:42: Daily, 0 [place] 00 Refill(s) 3 ML 2018-0 No 20 unit, Memoria Insulin 3-22 SUB-Q, l Glargine 07:42: Daily, # 3 Her hook 100 UNT/ML 00 mL, 3 Prefilled Refill(s) Syringe [Lantus] Vancomycin No 2000 mg: Me moria -22 infuse l 07:00: over 2.5 [place] 00 hours For adult patients only: Round to nearest 250 mg per Medical Staff approval MEDICATION WASTE Product Size: 1000 mg Product Wasted: ___ mg Vancomycin 0 No 2000 mg: Me moria 3-22 infuse l 07:00: over 2.5 [place] 00 hours For adult patients only: Round to nearest 250 mg per Medical Staff approval MEDICATION WASTE Product Size: 1000 mg Product Wasted: ___ mg Vancomycin 2018-0 No 2000 mg: Me moria 3-22 infuse l 07:00: over 2.5 [place] 00 hours For adult patients only: Round to nearest 250 mg per Medical Staff approval MEDICATION WASTE Product Size: 1000 mg Product Wasted: ___ mg gabapentin 0 No Notes: Memor ia 3-22 (Same as: l 06:00: Neurontin) [place] Acetaminoph No Notes: Max Memoria en 3-22 acetaminop l 06:00: hen 4000 [place] 00 mg/day (4 gm/day). (Same as: Tylenol Extra Strength) Lidocaine No Notes: Memori a Hydrochlori 3-22 Apply only l de 0.05 06:00: once for Onesimo n MG/MG 00 up to 12 Transdermal hours in a Patch 24-hour [Lidoderm] period (12 hours on and 12 hours off). (Same as: Lidoderm) "Remove old patch before applicatio n of new patch" Naproxen No Notes: Memoria 3-22 (Same as: l 06:00: Naprosyn) [place] 00 Take with food. cefepime No Notes: Memoria 3 (Same As: l 06:00: Maxipime) [place] MEDICATION WASTE Product Size: 1000 mg Product Wasted: ___ mg gabapentin No Notes: Memor ia - (Same as: l 06:00: Neurontin) [place] Acetaminoph No Notes: Max Memoria en 3-22 acetaminop l 06:00: hen 4000 [place] 00 mg/day (4 gm/day). (Same as: Tylenol Extra Strength) Lidocaine No Notes: Memori a Hydrochlori 3-22 Apply only l de 0.05 06:00: once for Onesimo n MG/MG 00 up to 12 Transdermal hours in a Patch 24-hour [Lidoderm] period (12 hours on and 12 hours off). (Same as: Lidoderm) "Remove old patch before applicatio n of new patch" Naproxen No Notes: Memoria 3-22 (Same as: l 06:00: Naprosyn) [place] 00 Take with food. cefepime No Notes: Memoria 3-22 (Same As: l 06:00: Maxipime) [place] MEDICATION WASTE Product Size: 1000 mg Product Wasted: ___ mg gabapentin No Notes: Memor ia -22 (Same as: l 06:00: Neurontin) [place] 00 Acetaminoph No Notes: Max Memoria en -22 acetaminop l 06:00: hen 4000 [place] 00 mg/day (4 gm/day). (Same as: Tylenol Extra Strength) Lidocaine No Notes: Memori a Hydrochlori 22 Apply only l de 0.05 06:00: once for Onesimo n MG/MG 00 up to 12 Transdermal hours in a Patch 24-hour [Lidoderm] period (12 hours on and 12 hours off). (Same as: Lidoderm) "Remove old patch before applicatio n of new patch" Naproxen No Notes: Memoria -22 (Same as: l 06:00: Naprosyn) [place] 00 Take with food. cefepime No Notes: Memoria -22 (Same As: l 06:00: Maxipime) [place] 00 MEDICATION WASTE Product Size: 1000 mg Product Wasted: ___ mg pneumococca No Notes: Michel sanju l capsular -22 (Same as: l polysacchar 05:59: Pneumovax H ermann moragn type 1 ) vaccine / Refrigerat pneumococca e l capsular polysacchar morgan type 10A vaccine / pneumococca l capsular polysacchar morgan type 11A vaccine / pneumococca l capsular polysacchar morgan type 12F vaccine / pneumococca l capsular polysacchar pneumococca No Notes: Michel sanju l capsular 3-22 (Same as: l polysacchar 05:59: Pneumovax H ermann morgan type 1 ) vaccine / Refrigerat pneumococca e l capsular polysacchar morgan type 10A vaccine / pneumococca l capsular polysacchar morgan type 11A vaccine / pneumococca l capsular polysacchar morgan type 12F vaccine / pneumococca l capsular polysacchar pneumococca No Notes: Michel sanju l capsular 3-22 (Same as: l polysacchar 05:59: Pneumovax H ermann morgan type 1 23) vaccine / Refrigerat pneumococca e l capsular polysacchar morgan type 10A vaccine / pneumococca l capsular polysacchar morgan type 11A vaccine / pneumococca l capsular polysacchar morgan type 12F vaccine / pneumococca l capsular polysacchar Insulin No Notes: Memoria Glargine - Same as: l 100 UNT/ML 05:49: Lantus) Do H ermann Injectable 00 not hold Solution insulin [Lantus] without contacting prescriber WASTE: F/P - Black; E - [facility] Insulin 0 No Notes: Memoria Lispro 3-22 (Same as: l 05:49: Humalog ) [place] 00 Roll in palms of hands gently; Do not shake `vigorousl y. "Single Patient Use Only " WASTE: F/P - Black; E - [facility]ash [facility] Stable for 28 days at room temperatur e. Expires in days from ____Date Dextrose 0 No 25 gm, 50 Michel sanju 50% Syringe 3-22 mL, Route: l 05:49: IVP, Drug [place] 00 Form: INJ, Dosing Weight 109.091, kg, PRN, PRN Blood Glucose Results, Start date: 06/21/18 0:49:00 CDT, Duration: 30 day, Stop date: 07/21/18 0:48:00 CDT Glucagon No 1 mg, Memoria 3- Route: IM, l 05:49: Drug form: [place] 00 PDR/INJ, PRN, Dosing Weight 109.091, kg, PRN Blood Glucose Results, Start date: 06/21/18 0:49:00 CDT, Duration: 30 day, Stop date: 07/21/18 0:48:00 CDT Insulin 2018-0 No Notes: Memoria Glargine 3-22 Same as: l 100 UNT/ML 05:49: Lantus) Do H ermann Injectable 00 not hold Solution insulin [Lantus] without contacting prescriber WASTE: F/P - Black; E - [facility] Insulin 0 No Notes: Memoria Lispro 3-22 (Same as: l 05:49: Humalog ) [place] 00 Roll in palms of hands gently; Do not shake `vigorousl y. "Single Patient Use Only " WASTE: F/P - Black; E - [facility]ash [facility] Stable for 28 days at room temperatur e. Expires in days from ____Date Dextrose 0 No 25 gm, 50 Michel sanju 50% Syringe 3-22 mL, Route: l 05:49: IVP, Drug [place] Form: INJ, Dosing Weight 109.091, kg, PRN, PRN Blood Glucose Results, Start date: 06/21/18 0:49:00 CDT, Duration: 30 day, Stop date: 07/21/18 0:48:00 CDT Glucagon No 1 mg, Memoria 06-21 Route: IM, l 05:49: Drug form: [place] 00 PDR/INJ, PRN, Dosing Weight 109.091, kg, PRN Blood Glucose Results, Start date: 06/21/18 0:49:00 CDT, Duration: 30 day, Stop date: 07/21/18 0:48:00 CDT Insulin No Notes: Memoria Glargine 06-21 Same as: l 100 UNT/ML 05:49: Lantus) Do H ermann Injectable 00 not hold Solution insulin [Lantus] without contacting prescriber WASTE: F/P - Black; E - [facility] Trash [facility] Insulin No Notes: Memoria Lispro 06-21 (Same as: l 05:49: Humalog ) [place] 00 Roll in palms of hands gently; Do not shake `vigorousl y. "Single Patient Use Only " WASTE: F/P - Black; E - [facility] Trash [facility] Stable for 28 days at room temperatur e. Expires in days from ____Date Dextrose No 25 gm, 50 Michel sanju 50% Syringe 3-22 mL, Route: l 05:49: IVP, Drug [place] Form: INJ, Dosing Weight 109.091, kg, PRN, PRN Blood Glucose Results, Start date: 06/21/18 0:49:00 CDT, Duration: 30 day, Stop date: 07/21/18 0:48:00 CDT Glucagon No 1 mg, Memoria 06-21 Route: IM, l 05:49: Drug form: [place] 00 PDR/INJ, PRN, Dosing Weight 109.091, kg, PRN Blood Glucose Results, Start date: 06/21/18 0:49:00 CDT, Duration: 30 day, Stop date: 07/21/18 0:48:00 CDT tizanidine No Notes: Memor ia 3-22 (Same As: l 05:44: Zanaflex) Melatonin No Notes: Memori a 3-22 (Same as: l 05:44: Melatonin) Morphine No Notes: Memoria 3-22 (Same l 05:44: as:MORPhin [place] 00 e Sulfate) Oxycodone No Notes: Memori a Hydrochlori 3-22 (Same as: l de 5 MG 05:44: Roxicodone Herm leidy Oral Tablet ) tizanidine No Notes: Memor ia 3-22 (Same As: l 05:44: Zanaflex) Melatonin No Notes: Memori a 3-22 (Same as: l 05:44: Melatonin) Morphine No Notes: Memoria 3-22 (Same l 05:44: as:MORPhin [place] 00 e Sulfate) Oxycodone No Notes: Memori a Hydrochlori 3-22 (Same as: l de 5 MG 05:44: Roxicodone Herm leidy Oral Tablet ) tizanidine No Notes: Memor ia 3-22 (Same As: l 05:44: Zanaflex) Melatonin No Notes: Memori a 3-22 (Same as: l 05:44: Melatonin) Morphine No Notes: Memoria 3-22 (Same l 05:44: as:MORPhin [place] 00 e Sulfate) Oxycodone No Notes: Memori a Hydrochlori 3-22 (Same as: l de 5 MG 05:44: Roxicodone Herm leidy Oral Tablet ) Dextrose No 25 gm, 50 Michel sanju 50% Syringe 3-22 mL, Route: l 05:41: IVP, Drug Form: INJ, Dosing Weight 109.091, kg, PRN, PRN Blood Glucose Results, Start date: 06/21/18 0:41:00 CDT, Duration: 30 day, Stop date: 07/21/18 0:40:00 CDT Glucagon No 1 mg, Memoria 3-22 Route: IM, l 05:41: Drug form: Bl[place] 00 PDR/INJ, PRN, Dosing Weight 109.091, kg, PRN Blood Glucose Results, Start date: 06/21/18 0:41:00 CDT, Duration: 30 day, Stop date: 07/21/18 0:40:00 CDT Ondansetron 2019-0 No Notes: Michel sanju 3-22 (Same as: l 05:41: Kelsie) Bladimir 00 MEDICATION WASTE Product Size: 4 mg Product Wasted: ___ mg Dextrose 2018- No 25 gm, 50 Michel sanju 50% Syringe 3-22 mL, Route: l 05:41: IVP, Drug [place] 00 Form: INJ, Dosing Weight 109.091, kg, PRN, PRN Blood Glucose Results, Start date: 06/21/18 0:41:00 CDT, Duration: 30 day, Stop date: 07/21/18 0:40:00 CDT Glucagon 2019-0 No 1 mg, Memoria 06-21 Route: IM, l 05:41: Drug form: Blad[place] 00 PDR/INJ, PRN, Dosing Weight 109.091, kg, PRN Blood Glucose Results, Start date: 06/21/18 0:41:00 CDT, Duration: 30 day, Stop date: 07/21/18 0:40:00 CDT Ondansetron 2019-0 No Notes: Michel sanju 3-22 (Same as: l 05:41: Kelsie) Bl[place] 00 MEDICATION WASTE Product Size: 4 mg Product Wasted: ___ mg Dextrose 2018-0 No 25 gm, 50 Michel sanju 50% Syringe 3-22 mL, Route: l 05:41: IVP, Drug [place] 00 Form: INJ, Dosing Weight 109.091, kg, PRN, PRN Blood Glucose Results, Start date: 06/21/18 0:41:00 CDT, Duration: 30 day, Stop date: 07/21/18 0:40:00 CDT Glucagon 2019-0 No 1 mg, Memoria 3 Route: IM, l 05:41: Drug form: [place] 00 PDR/INJ, PRN, Dosing Weight 109.091, kg, PRN Blood Glucose Results, Start date: 06/21/18 0:41:00 CDT, Duration: 30 day, Stop date: 07/21/18 0:40:00 CDT Ondansetron No Notes: Michel sanju 3- (Same as: l 05:41: Zofran) MEDICATION WASTE Product Size: 4 mg Product Wasted: ___ mg Morphine No Notes: Memoria 3-22 (Same l 02:39: as:MORPhin [place] 00 e Sulfate) Morphine No Notes: Memoria 3-22 (Same l 02:39: as:MORPhin [place] 00 e Sulfate) Morphine No Notes: Memoria 3-22 (Same l 02:39: as:MORPhin [place] 00 e Sulfate) Morphine No Notes: Memoria 3-21 (Same l 23:18: as:MORPhin [place] 00 e Sulfate) Zofran No Notes: Memor ia 3-21 MEDICATION l 23:18: WASTE Product Size: 4 mg Product Wasted: ___ mg Morphine No Notes: Memoria 3-21 (Same l 23:18: as:MORPhin [place] 00 e Sulfate) Zofran No Notes: Memor ia 3-21 MEDICATION l 23:18: WASTE Product Size: 4 mg Product Wasted: ___ mg Morphine No Notes: Memoria 3-21 (Same l 23:18: as:MORPhin [place] 00 e Sulfate) Zofran No Notes: Memor ia 3-21 MEDICATION l 23:18: WASTE Product Size: 4 mg Product Wasted: ___ mg Vancomycin No 2001 mg: Me moria 3-21 infuse l 23:00: over 2.5 hours For adult patients only: Round to nearest 250 mg per medical staff approval MEDICATION WASTE Product Size: 1000 mg Product Wasted: ___ mg cefepime No 2 gm, Memoria 3 Route: l 23:00: IVP, ONCE, Dosing Weight 109.091, kg, Priority: STAT, Start date: 06/20/18 18:00:00 CDT, Stop date: 06/20/18 18:00:00 CDT, ABX Indication : Skin/Soft Tissue Infection Saline 2018-0 No 10 mL, Memoria Flush 0.9% 3-21 Route: l 23:00: IVP, Drug Form: INJ, Dosing Weight 109.091, kg, PRN, PRN Line Flush, Start date: 06/20/18 18:00:00 CDT, Duration: 30 day, Stop date: 07/20/18 17:59:00 CDT Isolyte S 2019-0 No [phone] Michel sanju PH-7.4 3-21 mL, 2,000 l (Bolus) IV 23:00: ml/hr, Nancy Route: IV, ONCE, Priority: STAT, Dosing Weight 109.091 kg, Start date: 06/20/18 18:00:00 CDT, Stop date: 06/20/18 18:00:00 CDT Vancomycin 2018-0 No 2000 mg: Me moria - infuse l 23:00: over 2.5 [place] 00 hours For adult patients only: Round to nearest 250 mg per medical staff approval MEDICATION WASTE Product Size: 1000 mg Product Wasted: ___ mg cefepime 2018-0 No 2 gm, Memoria -21 Route: l 23:00: IVP, ONCE, Dosing Weight 109.091, kg, Priority: STAT, Start date: 06/20/18 18:00:00 CDT, Stop date: 06/20/18 18:00:00 CDT, ABX Indication : Skin/Soft Tissue Infection Saline 2018-0 No 10 mL, Memoria Flush 0.9% 3-21 Route: l 23:00: IVP, Drug [place] 00 Form: INJ, Dosing Weight 109.091, kg, PRN, PRN Line Flush, Start date: 06/20/18 18:00:00 CDT, Duration: 30 day, Stop date: 07/20/18 17:59:00 CDT Isolyte S 2019-0 No [phone] Michel sanju PH-7.4 3-21 mL, 2,000 l (Bolus) IV 23:00: ml/hr, Nancy Route: IV, ONCE, Priority: STAT, Dosing Weight 109.091 kg, Start date: 06/20/18 18:00:00 CDT, Stop date: 06/20/18 18:00:00 CDT Vancomycin 2019-0 No 2001 mg: Me moria 3- infuse l 23:00: over 2.5 [place] 00 hours For adult patients only: Round to nearest 250 mg per medical staff approval MEDICATION WASTE Product Size: 1000 mg Product Wasted: ___ mg cefepime 2019-0 No 2 gm, Memoria 06-20 Route: l 23:00: IVP, ONCE, Dosing Weight 109.091, kg, Priority: STAT, Start date: 06/20/18 18:00:00 CDT, Stop date: 06/20/18 18:00:00 CDT, ABX Indication : Skin/Soft Tissue Infection Saline 2019-0 No 10 mL, Memoria Flush 0.9% 06-20 Route: l 23:00: IVP, Drug Form: INJ, Dosing Weight 109.091, kg, PRN, PRN Line Flush, Start date: 06/20/18 18:00:00 CDT, Duration: 30 day, Stop date: 07/20/18 17:59:00 CDT Isolyte S 2019-0 No [phone] Michel sanju PH-7.4 3-21 mL, 2,000 l (Bolus) IV 23:00: ml/hr, Nancy nn Route: IV, ONCE, Priority: STAT, Dosing Weight 109.091 kg, Start date: 06/20/18 18:00:00 CDT, Stop date: 06/20/18 18:00:00 CDT Acetaminoph 2019-0 No 650 mg, Mem oria en 05-01 Route: PO, l 14:56: Drug form: [place] 00 TAB, ONCE, Dosing Weight 111.6, kg, Priority: STAT, Start date: 05/01/18 8:56:00 CONTINUOUS IMPROVEMENT LEAD, Stop date: 05/01/18 8:56:00 CONTINUOUS IMPROVEMENT LEAD Acetaminoph 2019-0 No 650 mg, Mem oria en 30 Route: PO, l 14:56: Drug form: [place] 00 TAB, ONCE, Dosing Weight 111.6, kg, Priority: STAT, Start date: 05/01/18 8:56:00 CONTINUOUS IMPROVEMENT LEAD, Stop date: 05/01/18 8:56:00 CONTINUOUS IMPROVEMENT LEAD Acetaminoph 2019-0 No 650 mg, Mem oria en 1-30 Route: PO, l 14:56: Drug form: [place] 00 TAB, ONCE, Dosing Weight 111.6, kg, Priority: STAT, Start date: 05/01/18 8:56:00 CONTINUOUS IMPROVEMENT LEAD, Stop date: 05/01/18 8:56:00 CONTINUOUS IMPROVEMENT LEAD Acetaminoph 2019-0 No 1 - 2 tab, Memoria en 300 MG / 1-30 PO, Q4H, l Codeine 14:42: PRN Pain, Nancy nn Phosphate 00 X 4 day, # 30 MG Oral 36 tab, 0 Tablet Refill(s) [Tylenol with Codeine #3] Acetaminoph 2019-0 No 1 - 2 tab, Memoria en 300 MG / 1-30 PO, Q4H, l Codeine 14:42: PRN Pain, Nancy nn Phosphate 00 X 4 day, # 30 MG Oral 36 tab, 0 Tablet Refill(s) [Tylenol with Codeine #3] Acetaminoph 2019-0 No 1 - 2 tab, Memoria en 300 MG / 1-30 PO, Q4H, l Codeine 14:42: PRN Pain, Nancy nn Phosphate 00 X 4 day, # 30 MG Oral 36 tab, 0 Tablet Refill(s) [Tylenol with Codeine #3] Ondansetron 2019-0 No 4 mg, Memor ia 1-30 Route: l 14:28: IVP, Drug [place] 00 form: INJ, ONCE, Dosing Weight 111.6, kg, Priority: STAT, Start date: 05/01/18 8:28:00 CONTINUOUS IMPROVEMENT LEAD, Stop date: 05/01/18 8:28:00 CONTINUOUS IMPROVEMENT LEAD Ondansetron 2019-0 No 4 mg, Memor ia 30 Route: l 14:28: IVP, Drug [place] 00 form: INJ, ONCE, Dosing Weight 111.6, kg, Priority: STAT, Start date: 05/01/18 8:28:00 CONTINUOUS IMPROVEMENT LEAD, Stop date: 05/01/18 8:28:00 CONTINUOUS IMPROVEMENT LEAD Ondansetron 2019-0 No 4 mg, Memor ia 05-01 Route: l 14:28: IVP, Drug form: INJ, ONCE, Dosing Weight 111.6, kg, Priority: STAT, Start date: 05/01/18 8:28:00 CONTINUOUS IMPROVEMENT LEAD, Stop date: 05/01/18 8:28:00 CONTINUOUS IMPROVEMENT LEAD Morphine 2019-0 No 8 mg, Memoria 05-01 Route: l 14:27: IVP, ONCE, Dosing Weight 111.6, kg, Priority: STAT, Start date: 05/01/18 8:27:00 CONTINUOUS IMPROVEMENT LEAD, Stop date: 05/01/18 8:27:00 CONTINUOUS IMPROVEMENT LEAD Morphine 2019-0 No 8 mg, Memoria 05-01 Route: l 14:27: IVP, ONCE, Dosing Weight 111.6, kg, Priority: STAT, Start date: 05/01/18 8:27:00 CONTINUOUS IMPROVEMENT LEAD, Stop date: 05/01/18 8:27:00 CONTINUOUS IMPROVEMENT LEAD Morphine 2019-0 No 8 mg, Memoria 05-01 Route: l 14:27: IVP, ONCE, Dosing Weight 111.6, kg, Priority: STAT, Start date: 05/01/18 8:27:00 CONTINUOUS IMPROVEMENT LEAD, Stop date: 05/01/18 8:27:00 CONTINUOUS IMPROVEMENT LEAD ondansetron 2018-0 No Route: IV, Memoria (ANES) 04-29 Drug form: l 16:06: INJ, ONCE, Stop date: 04/29/18 10:06:00 CONTINUOUS IMPROVEMENT LEAD ondansetron 2018-0 No Route: IV, Memoria (ANES) 04-29 Drug form: l 16:06: INJ, ONCE, Stop date: 04/29/18 10:06:00 CONTINUOUS IMPROVEMENT LEAD ondansetron 2019-0 No Route: IV, Memoria (ANES) 04-29 Drug form: l 16:06: INJ, ONCE, Stop date: 04/29/18 10:06:00 CONTINUOUS IMPROVEMENT LEAD famotidine 2018-0 No Route: IV, M emoria (ANES) 04-29 Drug form: l 14:41: INJ, ONCE, Stop date: 04/29/18 8:41:00 CONTINUOUS IMPROVEMENT LEAD propofol 2019-0 No Route: IV, Mem oria (ANES) 04-29 Drug form: l 14:41: INJ, ONCE, Stop date: 04/29/18 8:41:00 CONTINUOUS IMPROVEMENT LEAD famotidine 2018-0 No Route: IV, M emoria (ANES) 04-29 Drug form: l 14:41: INJ, ONCE, Stop date: 04/29/18 8:41:00 CONTINUOUS IMPROVEMENT LEAD propofol 2019-0 No Route: IV, Mem oria (ANES) 04-29 Drug form: l 14:41: INJ, ONCE, Stop date: 04/29/18 8:41:00 CONTINUOUS IMPROVEMENT LEAD famotidine 2019-0 No Route: IV, M emoria (ANES) 04-29 Drug form: l 14:41: INJ, ONCE, Stop date: 04/29/18 8:41:00 CONTINUOUS IMPROVEMENT LEAD propofol 2019-0 No Route: IV, Mem oria (ANES) 04-29 Drug form: l 14:41: INJ, ONCE, Stop date: 04/29/18 8:41:00 CONTINUOUS IMPROVEMENT LEAD lidocaine 2019-0 No Route: IV, Me moria (ANES) 04-29 Drug form: l 14:36: INJ, ONCE, Stop date: 04/29/18 8:36:00 CONTINUOUS IMPROVEMENT LEAD fentaNYL 2019-0 No Route: IV, Mem oria (ANES) 04-29 Drug form: l 14:36: INJ, ONCE, Stop date: 04/29/18 8:36:00 CONTINUOUS IMPROVEMENT LEAD lidocaine 2019-0 No Route: IV, Me moria (ANES) 04-29 Drug form: l 14:36: INJ, ONCE, Stop date: 04/29/18 8:36:00 CONTINUOUS IMPROVEMENT LEAD fentaNYL 2019-0 No Route: IV, Mem oria (ANES) 04-29 Drug form: l 14:36: INJ, ONCE, Stop date: 04/29/18 8:36:00 CONTINUOUS IMPROVEMENT LEAD lidocaine 2019-0 No Route: IV, Me moria (ANES) 04-29 Drug form: l 14:36: INJ, ONCE, Stop date: 04/29/18 8:36:00 CONTINUOUS IMPROVEMENT LEAD fentaNYL 2019-0 No Route: IV, Mem oria (ANES) 04-29 Drug form: l 14:36: INJ, ONCE, Stop date: 04/29/18 8:36:00 CONTINUOUS IMPROVEMENT LEAD ceFAZolin 2019-0 No Route: IV, moria (ANES) 04-29 Drug form: l 14:31: INJ, ONCE, [place] 00 Stop date: 04/29/18 8:31:00 CONTINUOUS IMPROVEMENT LEAD ceFAZolin 2019-0 No Route: IV, moria (ANES) 04-29 Drug form: l 14:31: INJ, ONCE, [place] 00 Stop date: 04/29/18 8:31:00 CONTINUOUS IMPROVEMENT LEAD ceFAZolin 2019-0 No Route: IV, moria (ANES) 04-29 Drug form: l 14:31: INJ, ONCE, [place] 00 Stop date: 04/29/18 8:31:00 CONTINUOUS IMPROVEMENT LEAD Sodium 2019-0 No Route: IV, Memor ia Chloride - Total l 0.9% IV 14:21: Volume: Bl[place]imir (ANES) 1000 00 1,000, mL Start date: 04/29/18 8:21:00 CONTINUOUS IMPROVEMENT LEAD, Stop date: 04/29/18 9:21:00 CONTINUOUS IMPROVEMENT LEAD Sodium 2019-0 No Route: IV, Memor ia Chloride -28 Total l 0.9% IV 14:21: Volume: [place] (ANES) 1000 00 1,000, mL Start date: 04/29/18 8:21:00 CONTINUOUS IMPROVEMENT LEAD, Stop date: 04/29/18 9:21:00 CONTINUOUS IMPROVEMENT LEAD Sodium 2019-0 No Route: IV, Memor ia Chloride -28 Total l 0.9% IV 14:21: Volume: [place] (ANES) 1000 00 1,000, mL Start date: 04/29/18 8:21:00 CONTINUOUS IMPROVEMENT LEAD, Stop date: 04/29/18 9:21:00 CONTINUOUS IMPROVEMENT LEAD Morphine 2019-0 No 4 mg, Memoria 04-29 Route: l 14:08: IVP, [place] 00 Q5Min, Dosing Weight 109.091, kg, PRN Pain Score 4-6, Start date: 04/29/18 8:08:00 CONTINUOUS IMPROVEMENT LEAD, Duration: 3 doses or times, Stop date: Limited # of times Oxycodone 2018-0 No 5 mg, Memoria 04-29 Route: PO, l 14:08: Drug form: [place] 00 TAB, Q4H, Dosing Weight 109.091, kg, PRN Pain Score 4-6, Start date: 04/29/18 8:08:00 CONTINUOUS IMPROVEMENT LEAD, Duration: 30 day, Stop date: 05/29/18 8:07:00 CONTINUOUS IMPROVEMENT LEAD Hydromorpho 2019-0 No 0.5 mg, Mem oria ne 04-29 Route: l 14:08: IVP, [place] 00 Q5Min, Dosing Weight 109.091, kg, PRN Pain Score 7-10, Start date: 04/29/18 8:08:00 CONTINUOUS IMPROVEMENT LEAD, Duration: 4 doses or times, Stop date: Limited # of times Flumazenil 2019-0 No 0.2 mg, Michel sanju 04-29 Route: l 14:08: IVP, PRN, [place] 00 Dosing Weight 109.091, kg, PRN Benzodiaze pine Reversal, Initial dose, Start date: 04/29/18 8:08:00 CONTINUOUS IMPROVEMENT LEAD, Duration: 30 day, Stop date: 05/29/18 8:07:00 CONTINUOUS IMPROVEMENT LEAD Naloxone 2019-0 No 0.4 mg, Memori a 04-29 Route: l 14:08: IVP, [place] 00 Q2MIN, Dosing Weight 109.091, kg, PRN Narcotic Reversal, Start date: 04/29/18 8:08:00 CONTINUOUS IMPROVEMENT LEAD, Duration: 8 doses or times, Stop date: Limited # of times Hydralazine 2019-0 No 10 mg, Michel sanju 04-29 Route: l 14:08: IVP, [place] 00 Q20Min, Dosing Weight 109.091, kg, PRN Elevated BP, Start date: 04/29/18 8:08:00 CONTINUOUS IMPROVEMENT LEAD, Duration: 2 doses or times, Stop date: Limited # of times Metoprolol 2019-0 No 1 mg, Memori a 04-29 Route: l 14:08: IVP, [place] 00 Q5Min, Dosing Weight 109.091, kg, PRN Other -See Comment, Start date: 04/29/18 8:08:00 CONTINUOUS IMPROVEMENT LEAD, Duration: 5 doses or times, Stop date: Limited # of times Labetalol 2019-0 No 10 mg, Memori a 04-29 Route: l 14:08: IVP, [place] 00 Q5Min, Dosing Weight 109.091, kg, PRN Elevated BP, Start date: 04/29/18 8:08:00 CONTINUOUS IMPROVEMENT LEAD, Duration: 5 doses or times, Stop date: Limited # of times Ondansetron 2019-0 No 4 mg, Memor ia 04-29 Route: l 14:08: IVP, ONCE, [place] 00 Dosing Weight 109.091, kg, PRN Nausea & Vomiting, Start date: 04/29/18 8:08:00 CONTINUOUS IMPROVEMENT LEAD Promethazin 2019-0 No 6.25 mg, Me moria e 04-29 Route: l 14:08: IVPB, [place] 00 ONCE, Dosing Weight 109.091, kg, PRN Nausea & Vomiting, Start date: 04/29/18 8:08:00 CONTINUOUS IMPROVEMENT LEAD Dexamethaso 2019-0 No 4 mg, Memor ia ne 04-29 Route: l 14:08: IVP, ONCE, [place] 00 Dosing Weight 109.091, kg, PRN Nausea & Vomiting, Start date: 04/29/18 8:08:00 CONTINUOUS IMPROVEMENT LEAD Sodium 2019-0 No 1,000 mL, Memori a Chloride 04-29 Rate: 125 l 0.9% IV 14:08: ml/hr, [place] 1000 mL 00 Infuse over: 8 hr, Route: IV, Dosing Weight 109.091 kg, Total Volume: 1,000, Start date: 04/29/18 8:08:00 CONTINUOUS IMPROVEMENT LEAD, Duration: 30 day, Stop date: 05/29/18 8:07:00 CONTINUOUS IMPROVEMENT LEAD, 2.27, m2 ropivacaine 2019-0 No Dosing: Mem oria 04-29 See l 14:08: Epidural [place] 00 Dosing Order, Route: NERVE BLOCK, Start date: 04/29/18 8:08:00 CONTINUOUS IMPROVEMENT LEAD 400 mL, Dosing Weight 109.091, kg, Duration: 30 day, Stop date: 05/29/18 8:07:00 CONTINUOUS IMPROVEMENT LEAD, 6 ml/hr Morphine 2019-0 No 4 mg, Memoria 04-29 Route: l 14:08: IVP, [place] 00 Q5Min, Dosing Weight 109.091, kg, PRN Pain Score 4-6, Start date: 04/29/18 8:08:00 CONTINUOUS IMPROVEMENT LEAD, Duration: 3 doses or times, Stop date: Limited # of times Oxycodone 2019-0 No 5 mg, Memoria 04-29 Route: PO, l 14:08: Drug form: [place] 00 TAB, Q4H, Dosing Weight 109.091, kg, PRN Pain Score 4-6, Start date: 04/29/18 8:08:00 CONTINUOUS IMPROVEMENT LEAD, Duration: 30 day, Stop date: 05/29/18 8:07:00 CONTINUOUS IMPROVEMENT LEAD Hydromorpho 2019-0 No 0.5 mg, Mem oria ne 04-29 Route: l 14:08: IVP, [place] 00 Q5Min, Dosing Weight 109.091, kg, PRN Pain Score 7-10, Start date: 04/29/18 8:08:00 CONTINUOUS IMPROVEMENT LEAD, Duration: 4 doses or times, Stop date: Limited # of times Flumazenil 2019-0 No 0.2 mg, Michel sanju 04-29 Route: l 14:08: IVP, PRN, [place] 00 Dosing Weight 109.091, kg, PRN Benzodiaze pine Reversal, Initial dose, Start date: 04/29/18 8:08:00 CONTINUOUS IMPROVEMENT LEAD, Duration: 30 day, Stop date: 05/29/18 8:07:00 CONTINUOUS IMPROVEMENT LEAD Naloxone 2019-0 No 0.4 mg, Memori a 04-29 Route: l 14:08: IVP, [place] 00 Q2MIN, Dosing Weight 109.091, kg, PRN Narcotic Reversal, Start date: 04/29/18 8:08:00 CONTINUOUS IMPROVEMENT LEAD, Duration: 8 doses or times, Stop date: Limited # of times Hydralazine 2019-0 No 10 mg, Michel sanju 04-29 Route: l 14:08: IVP, [place] 00 Q20Min, Dosing Weight 109.091, kg, PRN Elevated BP, Start date: 04/29/18 8:08:00 CONTINUOUS IMPROVEMENT LEAD, Duration: 2 doses or times, Stop date: Limited # of times Metoprolol 2019-0 No 1 mg, Memori a 04-29 Route: l 14:08: IVP, [place] 00 Q5Min, Dosing Weight 109.091, kg, PRN Other -See Comment, Start date: 04/29/18 8:08:00 CONTINUOUS IMPROVEMENT LEAD, Duration: 5 doses or times, Stop date: Limited # of times Labetalol 2019-0 No 10 mg, Memori a 04-29 Route: l 14:08: IVP, [place] 00 Q5Min, Dosing Weight 109.091, kg, PRN Elevated BP, Start date: 04/29/18 8:08:00 CONTINUOUS IMPROVEMENT LEAD, Duration: 5 doses or times, Stop date: Limited # of times Ondansetron 2019-0 No 4 mg, Memor ia 04-29 Route: l 14:08: IVP, ONCE, [place] 00 Dosing Weight 109.091, kg, PRN Nausea & Vomiting, Start date: 04/29/18 8:08:00 CONTINUOUS IMPROVEMENT LEAD Promethazin 2019-0 No 6.25 mg, Me moria e 04-29 Route: l 14:08: IVPB, [place] 00 ONCE, Dosing Weight 109.091, kg, PRN Nausea & Vomiting, Start date: 04/29/18 8:08:00 CONTINUOUS IMPROVEMENT LEAD Dexamethaso 2019-0 No 4 mg, Memor ia ne 04-29 Route: l 14:08: IVP, ONCE, [place] 00 Dosing Weight 109.091, kg, PRN Nausea & Vomiting, Start date: 04/29/18 8:08:00 CONTINUOUS IMPROVEMENT LEAD Sodium 2019-0 No 1,000 mL, Memori a Chloride 04-29 Rate: 125 l 0.9% IV 14:08: ml/hr, [place] 1000 mL 00 Infuse over: 8 hr, Route: IV, Dosing Weight 109.091 kg, Total Volume: 1,000, Start date: 04/29/18 8:08:00 CONTINUOUS IMPROVEMENT LEAD, Duration: 30 day, Stop date: 05/29/18 8:07:00 CONTINUOUS IMPROVEMENT LEAD, 2.27, m2 ropivacaine 2019-0 No Dosing: Mem oria 04-29 See l 14:08: Epidural Dosing Order, Route: NERVE BLOCK, Start date: 04/29/18 8:08:00 CONTINUOUS IMPROVEMENT LEAD 400 mL, Dosing Weight 109.091, kg, Duration: 30 day, Stop date: 05/29/18 8:07:00 CONTINUOUS IMPROVEMENT LEAD, 6 ml/hr Morphine 2019-0 No 4 mg, Memoria 04-29 Route: l 14:08: IVP, [place] 00 Q5Min, Dosing Weight 109.091, kg, PRN Pain Score 4-6, Start date: 04/29/18 8:08:00 CONTINUOUS IMPROVEMENT LEAD, Duration: 3 doses or times, Stop date: Limited # of times Oxycodone 2019-0 No 5 mg, Memoria 04-29 Route: PO, l 14:08: Drug form: [place] 00 TAB, Q4H, Dosing Weight 109.091, kg, PRN Pain Score 4-6, Start date: 04/29/18 8:08:00 CONTINUOUS IMPROVEMENT LEAD, Duration: 30 day, Stop date: 05/29/18 8:07:00 CONTINUOUS IMPROVEMENT LEAD Hydromorpho 2019-0 No 0.5 mg, Mem oria ne 04-29 Route: l 14:08: IVP, [place] 00 Q5Min, Dosing Weight 109.091, kg, PRN Pain Score 7-10, Start date: 04/29/18 8:08:00 CONTINUOUS IMPROVEMENT LEAD, Duration: 4 doses or times, Stop date: Limited # of times Flumazenil 2019-0 No 0.2 mg, Michel sanju 04-29 Route: l 14:08: IVP, PRN, [place] 00 Dosing Weight 109.091, kg, PRN Benzodiaze pine Reversal, Initial dose, Start date: 04/29/18 8:08:00 CONTINUOUS IMPROVEMENT LEAD, Duration: 30 day, Stop date: 05/29/18 8:07:00 CONTINUOUS IMPROVEMENT LEAD Naloxone 2019-0 No 0.4 mg, Memori a 04-29 Route: l 14:08: IVP, [place] 00 Q2MIN, Dosing Weight 109.091, kg, PRN Narcotic Reversal, Start date: 04/29/18 8:08:00 CONTINUOUS IMPROVEMENT LEAD, Duration: 8 doses or times, Stop date: Limited # of times Hydralazine 2019-0 No 10 mg, Michel sanju 04-29 Route: l 14:08: IVP, [place] 00 Q20Min, Dosing Weight 109.091, kg, PRN Elevated BP, Start date: 04/29/18 8:08:00 CONTINUOUS IMPROVEMENT LEAD, Duration: 2 doses or times, Stop date: Limited # of times Metoprolol 2019-0 No 1 mg, Memori a 04-29 Route: l 14:08: IVP, [place] 00 Q5Min, Dosing Weight 109.091, kg, PRN Other -See Comment, Start date: 04/29/18 8:08:00 CONTINUOUS IMPROVEMENT LEAD, Duration: 5 doses or times, Stop date: Limited # of times Labetalol 2019-0 No 10 mg, Memori a 04-29 Route: l 14:08: IVP, [place] 00 Q5Min, Dosing Weight 109.091, kg, PRN Elevated BP, Start date: 04/29/18 8:08:00 CONTINUOUS IMPROVEMENT LEAD, Duration: 5 doses or times, Stop date: Limited # of times Ondansetron 2019-0 No 4 mg, Memor ia 04-29 Route: l 14:08: IVP, ONCE, [place] 00 Dosing Weight 109.091, kg, PRN Nausea & Vomiting, Start date: 04/29/18 8:08:00 CONTINUOUS IMPROVEMENT LEAD Promethazin 2019-0 No 6.25 mg, Me moria e 04-29 Route: l 14:08: IVPB, [place] 00 ONCE, Dosing Weight 109.091, kg, PRN Nausea & Vomiting, Start date: 04/29/18 8:08:00 CONTINUOUS IMPROVEMENT LEAD Dexamethaso 2019-0 No 4 mg, Memor ia ne 04-29 Route: l 14:08: IVP, ONCE, Dosing Weight 109.091, kg, PRN Nausea & Vomiting, Start date: 04/29/18 8:08:00 CONTINUOUS IMPROVEMENT LEAD Sodium 2019-0 No 1,000 mL, Memori a Chloride 04-29 Rate: 125 l 0.9% IV 14:08: ml/hr, [place] 1000 mL 00 Infuse over: 8 hr, Route: IV, Dosing Weight 109.091 kg, Total Volume: 1,000, Start date: 04/29/18 8:08:00 CONTINUOUS IMPROVEMENT LEAD, Duration: 30 day, Stop date: 05/29/18 8:07:00 CONTINUOUS IMPROVEMENT LEAD, 2.27, m2 ropivacaine 2018-0 No Dosing: Mem oria - See l 14:08: Epidural Dosing Order, Route: NERVE BLOCK, Start date: 04/29/18 8:08:00 CONTINUOUS IMPROVEMENT LEAD 400 mL, Dosing Weight 109.091, kg, Duration: 30 day, Stop date: 05/29/18 8:07:00 CONTINUOUS IMPROVEMENT LEAD, 6 ml/hr Sodium 2019-0 No Route: IV, Memor ia Chloride 04-29 Total l 0.45% IV 13:46: Volume: Onesimo n (ANES) 1000 00 1,000, mL Start date: 04/29/18 7:46:00 CONTINUOUS IMPROVEMENT LEAD, Stop date: 04/29/18 8:46:00 CONTINUOUS IMPROVEMENT LEAD Sodium 2019-0 No Route: IV, Memor ia Chloride -28 Total l 0.45% IV 13:46: Volume: Onesimo n (ANES) 1000 00 1,000, mL Start date: 04/29/18 7:46:00 CONTINUOUS IMPROVEMENT LEAD, Stop date: 04/29/18 8:46:00 CONTINUOUS IMPROVEMENT LEAD Sodium 2019-0 No Route: IV, Memor ia Chloride -28 Total l 0.45% IV 13:46: Volume: Onesimo n (ANES) 1000 00 1,000, mL Start date: 04/29/18 7:46:00 CONTINUOUS IMPROVEMENT LEAD, Stop date: 04/29/18 8:46:00 CONTINUOUS IMPROVEMENT LEAD ceFAZolin + 2019- No Notes: Michel sanju sterile 04-29 (Same As: l water 20 mL 06:00: Ancef, Herm leidy Kefzol) MEDICATION WASTE Product Size: 1000 mg Product Wasted: ___ mg ceFAZolin + No Notes: Michel sanju sterile 04-29 (Same As: l water 20 mL 06:00: Ancef, Herm leidy Kefzol) MEDICATION WASTE Product Size: 1000 mg Product Wasted: ___ mg ceFAZolin + No Notes: Michel sanju sterile 04-29 (Same As: l water 20 mL 06:00: Ancef, Herm leidy Kefzol) MEDICATION WASTE Product Size: 1000 mg Product Wasted: ___ mg Insulin 2019- No See Memoria Glargine 1-24 Instructio l 100 UNT/ML 20:48: ns, 40 Nancy nn Injectable 00 units Solution SUB-Q at [Lantus] bedtime, 0 Refill(s) Humalog 0 No 20 unit, Memori a 1-24 SUB-Q, 0 l 20:48: Refill(s) Bladimir 00 Insulin No See Memoria Glargine 1-24 Instructio l 100 UNT/ML 20:48: ns, 40 Nancy nn Injectable 00 units Solution SUB-Q at [Lantus] bedtime, 0 Refill(s) Humalog 2018-0 No 20 unit, Memori a 1-24 SUB-Q, 0 l 20:48: Refill(s) Bladimir Insulin 2018-0 No See Memoria Glargine 04-25 Instructio l 100 UNT/ML 20:48: ns, 40 Nancy nn Injectable 00 units Solution SUB-Q at [Lantus] bedtime, 0 Refill(s) Humalog No 20 unit, Memori a 24 SUB-Q, 0 l 20:48: Refill(s) Bladimir Acetaminoph 2017-04 No 1-2 tab, Me moria en 300 MG / 1-08 PO, Q6H, l Codeine 03:27: PRN Pain, Nancy nn Phosphate 00 X 5 day, # 30 MG Oral 20 tab, 0 Tablet Refill(s) [Tylenol with Codeine #3] Acetaminoph 2017-04 No 1-2 tab, Me moria en 300 MG / 1-08 PO, Q6H, l Codeine 03:27: PRN Pain, Nancy nn Phosphate 00 X 5 day, # 30 MG Oral 20 tab, 0 Tablet Refill(s) [Tylenol with Codeine #3] Acetaminoph 2017-04 No 1-2 tab, Me moria en 300 MG / 1-08 PO, Q6H, l Codeine 03:27: PRN Pain, Nancy nn Phosphate 00 X 5 day, # 30 MG Oral 20 tab, 0 Tablet Refill(s) [Tylenol with Codeine #3] Acetaminoph 2017-04 No 1 tab, Michel sanju en 325 MG / 04-09 Route: PO, l Hydrocodone 02:54: Dosing Herm leidy Bitartrate 00 Weight 5 MG Oral 104.545, Tablet kg, ONCE, [[place] Start 5/325] date: 02/06/18 20:54:00 CONTINUOUS IMPROVEMENT LEAD, Stop date: 02/06/18 20:54:00 CONTINUOUS IMPROVEMENT LEAD Acetaminoph 2017-04 No 1 tab, Michel sanju en 325 MG / 08 Route: PO, l Hydrocodone 02:54: Dosing Herm leidy Bitartrate 00 Weight 5 MG Oral 104.545, Tablet kg, ONCE, [[place] Start 5/325] date: 02/06/18 20:54:00 CONTINUOUS IMPROVEMENT LEAD, Stop date: 02/06/18 20:54:00 CONTINUOUS IMPROVEMENT LEAD Acetaminoph 2017-04 No 1 tab, Michel sanju en 325 MG / 1-08 Route: PO, l Hydrocodone 02:54: Dosing Herm leidy Bitartrate 00 Weight 5 MG Oral 104.545, Tablet kg, ONCE, [[place] Start ] date: 02/06/18 20:54:00 CONTINUOUS IMPROVEMENT LEAD, Stop date: 02/06/18 20:54:00 CONTINUOUS IMPROVEMENT LEAD FLUoxetine 0 Yes [facility] (PROZAC) 10 2-26 ity of mg capsule 00:00: [address] Clindamycin 2013-04 Yes 600 mg = 2 Memoria 300 MG Oral 1-12 cap, PO, l Capsule 07:36: TID, # 60 Nancy nn [Cleocin] 00 cap, 0 Refill(s) Clindamycin 2013-04 Yes 600 mg = 2 Memoria 300 MG Oral 1-12 cap, PO, l Capsule 07:36: TID, # 60 Nancy nn [Cleocin] 00 cap, 0 Refill(s) Clindamycin 2013-04 Yes 600 mg = 2 Memoria 300 MG Oral 1-12 cap, PO, l Capsule 07:36: TID, # 60 Nancy nn [Cleocin] 00 cap, 0 Refill(s) Lidocaine 2013-04 No Notes: Memori a Hydrochlori 1-12 Preservati l de 20 MG/ML 06:48: ve free. He rmann Injectable 00 (Same as: Solution Xylocaine MPF) Clindamycin 2013-04 No Notes: Michel sanju 1-12 (clindamyc l 06:48: in 150 Bladimir 00 mg/1 ml (600 mg/4 ml VL) INJ) (Same As: Cleocin) Lidocaine 2013-04 No Notes: Memori a Hydrochlori 1-12 Preservati l de 20 MG/ML 06:48: ve free. He rmann Injectable 00 (Same as: Solution Xylocaine MPF) Clindamycin 2013-04 No Notes: Michel sanju 1-12 (clindamyc l 06:48: in 150 [place] 00 mg/1 ml (600 mg/4 ml VL) INJ) (Same As: Cleocin) Lidocaine 2013-04 No Notes: Memori a Hydrochlori 1-12 Preservati l de 20 MG/ML 06:48: ve free. He rmann Injectable 00 (Same as: Solution Xylocaine MPF) Clindamycin 2013-04 No Notes: Michel sanju 1-12 (clindamyc l 06:48: in 150 [place] 00 mg/1 ml (600 mg/4 ml VL) INJ) (Same As: Cleocin) Immunizations Ordered Filled Immunization Date Status Comments Sourc e Immunization Name Name HPV9 2015-07-19 Completed [facility] 00:00:00 [facility] HPV9 2014-11-24 Completed [facility] 00:00:00 [facility] Vital Signs Vital Name Observation Time Observation Value Comments Source Systolic blood 2022-06-13 00:33:00 148 mm[Hg] [facility] Diastolic blood 2022-06-13 00:33:00 91 mm[Hg] Unive [facility] Heart rate 2022-06-13 00:33:00 92 /min [facility] Body temperature 2022-06-13 00:33:00 37.22 [facility] Respiratory rate 2022-06-13 00:33:00 16 /min [facility] Body height 2022-06-13 00:33:00 165.1 cm [facility] Body weight 2022-06-13 00:33:00 104.327 kg [facility] BMI 2022-06-13 00:33:00 38.27 kg/m2 [facility] Oxygen saturation in 2022-06-13 00:33:00 99 /min [facility] Arterial blood by [facility] Pulse oximetry Branch Temperature Oral (F) 2018-07-06 20:35:00 98.2 F [facility] Heart Rate 2018-07-06 20:35:00 [facility] Systolic (mm Hg) 2018-07-06 20:35:00 Michel [facility] [place] Diastolic (mm Hg) 2018-07-06 20:35:00 [facility] [place] Respitory Rate 2018-07-06 20:35:00 [facility] [place] Heart Rate 2018-07-06 19:39:00 [facility] [place] Systolic (mm Hg) 2018-07-06 19:39:00 Michel rial [place] Diastolic (mm Hg) 2018-07-06 19:39:00 [facility] [place] Systolic (mm Hg) 2018-07-06 17:07:00 Michel [facility] [place] Diastolic (mm Hg) 2018-07-06 17:07:00 Mem [facility] [place] Respitory Rate 2018-07-06 17:07:00 [facility] [place] Temperature Oral (F) 2018-07-06 17:07:00 98.5 F [facility] Heart Rate 2018-07-06 17:07:00 [facility] [place] Temperature Oral (F) 2018-07-06 12:50:00 98.0 F [facility] [place] Respitory Rate 2018-07-06 12:50:00 [facility] [place] Height 2018-07-06 12:31:00 165.1 cm [facility] [place] Weight 2018-07-06 12:31:00 [facility] [place] BMI Calculated 2018-07-06 12:31:00 [facility] [place] BMI Calculated 2018-07-06 02:58:00 [facility] [place] Weight 2018-07-06 02:58:00 [facility] Height 2018-07-06 02:58:00 165.1 cm [facility] [place] Weight 2018-07-04 23:58:00 [facility] [place] BMI Calculated 2018-07-04 23:58:00 [facility] [place] Height 2018-07-04 23:58:00 165.1 cm [facility] [place] Systolic (mm Hg) 2018-07-04 23:58:00 Michel [facility] [place] Diastolic (mm Hg) 2018-07-04 23:58:00 [facility] [place] Heart Rate 2018-07-04 23:58:00 [facility] Respitory Rate 2018-07-04 23:58:00 [facility] [place] Temperature Oral (F) 2018-07-04 23:58:00 98.7 F [facility] [place] Systolic (mm Hg) 2018-06-27 17:09:00 Michel rial [place] Diastolic (mm Hg) 2018-06-27 17:09:00 [facility] [place] Respitory Rate 2018-06-27 17:09:00 [facility] [place] Heart Rate 2018-06-27 17:09:00 [facility] Temperature Oral (F) 2018-06-27 17:09:00 98.2 F [facility] [place] Temperature Oral (F) 2018-06-27 12:44:00 98.2 F [facility] Systolic (mm Hg) 2018-06-27 12:44:00 Michel [facility] [place] Diastolic (mm Hg) 2018-06-27 12:44:00 [facility] [place] Heart Rate 2018-06-27 12:44:00 [facility] Respitory Rate 2018-06-27 12:44:00 [facility] [place] Heart Rate 2018-06-27 10:39:00 [facility] [place] Temperature Oral (F) 2018-06-27 10:39:00 98 F [facility] [place] Systolic (mm Hg) 2018-06-27 10:39:00 Michel [facility] [place] Diastolic (mm Hg) 2018-06-27 10:39:00 [facility] [place] Respitory Rate 2018-06-27 10:39:00 [facility] [place] BMI Calculated 2018-06-21 05:51:00 [facility] [place] Weight 2018-06-21 05:51:00 [facility] Height 2018-06-21 05:51:00 165.1 cm [facility] [place] Weight 2018-06-21 05:46:00 [facility] Height 2018-06-21 05:46:00 165.1 cm [facility] BMI Calculated 2018-06-20 22:29:00 [facility] [place] Weight 2018-06-20 22:29:00 [facility] [place] Height 2018-06-20 22:29:00 165.1 cm [facility] [place] Temperature Oral (F) 2018-05-01 14:47:00 100.2 F [facility] [place] Heart Rate 2018-05-01 14:42:00 [facility] [place] Respitory Rate 2018-05-01 14:42:00 [facility] [place] Systolic (mm Hg) 2018-05-01 14:42:00 Michel rial [place] Diastolic (mm Hg) 2018-05-01 14:42:00 [facility] [place] Respitory Rate 2018-05-01 14:01:00 [facility] [place] Temperature Oral (F) 2018-05-01 14:01:00 99.3 F [facility] Heart Rate 2018-05-01 14:01:00 [facility] Systolic (mm Hg) 2018-05-01 14:01:00 Michel [facility] [place] Diastolic (mm Hg) 2018-05-01 14:01:00 Mem [facility] [place] Weight 2018-05-01 14:01:00 [facility] [place] Respitory Rate 2018-04-29 18:50:00 [facility] [place] Systolic (mm Hg) 2018-04-29 18:50:00 Michel rial [place] Diastolic (mm Hg) 2018-04-29 18:50:00 [facility] [place] Respitory Rate 2018-04-29 18:30:00 [facility] [place] Systolic (mm Hg) 2018-04-29 18:30:00 Michel rial [place] Diastolic (mm Hg) 2018-04-29 18:30:00 Mem [facility] [place] Systolic (mm Hg) 2018-04-29 18:15:00 Michel rial [place] Diastolic (mm Hg) 2018-04-29 18:15:00 Mem [facility] [place] Respitory Rate 2018-04-29 18:15:00 [facility] [place] Height 2018-04-25 20:49:00 165.1 cm [facility] [place] BMI Calculated 2018-04-25 20:49:00 [facility] [place] Weight 2018-04-25 20:49:00 [facility] [place] Heart Rate 2018-02-07 03:57:00 [facility] [place] Systolic (mm Hg) 2018-02-07 03:57:00 Michel rial [place] Diastolic (mm Hg) 2018-02-07 03:57:00 Mem [facility] [place] Respitory Rate 2018-02-07 03:57:00 [facility] [place] Temperature Oral (F) 2018-02-07 03:57:00 98.2 F [facility] Weight 2018-02-07 01:58:00 [facility] Temperature Oral (F) 2018-02-07 01:58:00 98.9 F [facility] Heart Rate 2018-02-07 01:58:00 [facility] Respitory Rate 2018-02-07 01:58:00 [facility] [place] Systolic (mm Hg) 2018-02-07 01:58:00 Michel [facility] [place] Diastolic (mm Hg) 2018-02-07 01:58:00 [facility] [place] Diastolic (mm Hg) 2014-02-11 07:50:00 Mem o[facility] [place] Systolic (mm Hg) 2014-02-11 07:50:00 Michel rial [place] Respitory Rate 2014-02-11 07:50:00 [facility] [place] Heart Rate 2014-02-11 07:50:00 [facility] Temperature Oral (F) 2014-02-11 07:50:00 97.6 F [facility] [place] Weight 2014-02-11 05:23:00 Norma Garrison BMI Calculated 2014-02-11 05:23:00 Santi Rosa Height 2014-02-11 05:23:00 160.02 cm Norma Garrison Diastolic (mm Hg) 2014-02-11 05:23:00 Dmitriy Garrison Systolic (mm Hg) 2014-02-11 05:23:00 Michel Garrison Respitory Rate 2014-02-11 05:23:00 Santi Rosa Heart Rate 2014-02-11 05:23:00 Norma Garrison Procedures Procedure Date / Time Performing Clinician Source Performed ED SPLINT APPLICATION 2022-06-13 02:26:18 Na Groves [facility] XR ANKLE <3 VW LEFT 2022-06-13 01:17:10 Na Groves [facility] POCT TEST 2022-06-13 00:51:00 Na Groves [facility] NOTICE OF PRIVACY 2022-06-13 00:34:53 Doctor Unassigned, No [facility] PRACTICES Name [facility] Encounters Start End Encounter Admission Attending Care Care Encounter Source Date/Time Date/Time Type Type Clinicians Facility Department ID 2018-06-20 Inpatient E [facility] MED [id number] [facility] 22:38:00 2022-07-11 2022-07-11 Outpatient [facility] [id number] Dwayne 08:03:33 08:03:33 0411 F Gustavo 2022-06-29 2022-06-29 Outpatient [facility] [id number] Dwayne 16:38:58 16:38:58 0330 F Gustavo 2022-06-12 2022-06-12 Emergency X LUIS, [facility] ERT [id number] Univers 19:38:00 21:40:00 NA khan [facility] 2022-06-12 2022-06-12 Emergency Luis, [facility] [id number] Univers 19:38:00 21:40:00 Na LUO [id number] i ty [facility] [id number] [facility] [id number] [place] [id number] [place] 2018-07-06 2018-07-06 Observatio [facility]Flavo [facility] [id number] Memoria 02:50:00 21:18:00 n r [place] 09 [facility] 2018-07-06 2018-07-06 Observatio nullFlavo [facility] [id number] Memoria 02:50:00 21:18:00 n r [place] 09 [facility] 2018-07-05 2018-07-06 Outpatient Luna [facility] [id number] 21:50:00 16:18:00 Radha Ruth [facility] 2018-07-06 2018-07-06 [facility] [id number] [facility] 15:12:00 15:12:00 2018-07-04 2018-07-05 Emergency nullFlavo [facility] [id number] Memoria 23:56:00 03:03:[address] 2018-07-04 2018-07-05 Emergency nullFlavo [facility] [id number] Memoria 23:56:00 03:03:[address] 2018-07-04 2018-07-04 Outpatient Kristopher [facility] [id number] 18:56:00 22:03:00 [facility] 2018-07-04 2018-07-04 Emergency E [facility] [id number] [facility] 18:56:00 18:56:00 2018-06-20 2018-06-27 Inpatient nullFlavo [facility] [id number] Memoria 22:22:00 22:00:[address] 2018-06-20 2018-06-27 Inpatient nullFlavo [facility] [id number] Memoria 22:22:00 22:00:[address] 2018-06-20 2018-06-27 Outpatient Jun [facility] [id number] 17:22:00 17:00:00 Limingtonlinda Regalado 2018-05-01 2018-05-01 Emergency nullFlavo [facility] [id number] Memoria 13:59:00 15:02:[address] 2018-05-01 2018-05-01 Emergency nullFlavo [facility] [id number] Memoria 13:59:00 15:02:[address] [facility] 2018-05-01 2018-05-01 Outpatient Megaick, [facility] [id number] 07:59:00 09:02:00 Rauvjose Betts [facility] 2018-05-01 2018-05-01 Outpatient Ruy, [facility] [id number] 07:59:00 09:02:00 Rauvjose Betts [facility] 2018-05-01 2018-05-01 Emergency E [facility] [id number] Memoria 07:59:00 07:59:00 l [place] [facility] 2018-04-29 2018-04-29 Day nullFlavo [facility] [id number] Memoria 11:13:00 19:45:00 Surgery r [place] 05 [facility] 2018-04-29 2018-04-29 Day nullFlavo [facility] [id number] Memoria 11:13:00 19:45:00 Surgery r [place] 05 [facility] 2018-04-29 2018-04-29 Outpatient [place], [facility] [id number] 05:13:00 13:45:00 Nito Magdalena Midnight 2018-04-29 2018-04-29 Outpatient [place], [facility] [id number] 05:13:00 13:45:00 Nito Magdalena Midnight 2018-04-29 2018-04-29 Outpatient [facility] [id number] Memoria 05:13:00 05:13:00 l [place] [facility] 2018-03-06 2018-03-14 PreReg nullFlavo [facility] [id number] Memoria 22:22:30 19:15:00 r [place] 04 [facility] 2018-03-06 2018-03-14 PreReg nullFlavo [facility] [id number] Memoria 22:22:30 19:15:00 r [place] 04 [facility] 2018-03-06 2018-03-14 Outpatient [place], [facility] [id number] 16:22:30 13:15:00 Nito Xavier Midnight 2018-02-22 2018-02-23 Outpt Diag nullFlavo [facility] [id number] Memoria 13:02:00 05:59:00 Services r Outpatient 00 l [place] 2018-02-22 2018-02-23 Outpt Diag nullFlavo [facility] [id number] Memoria 13:02:00 05:59:00 [facility] 2018-02-22 2018-02-22 Outpatient Byron, [id number] 07:02:00 23:59:00 Ling [id number] 2018-02-07 2018-02-07 Emergency [facility] [id number] Memoria 01:39:00 04:00:00 r [place] 03 [facility] 2018-02-07 2018-02-07 Emergency [facility] [id number] Memoria 01:39:00 04:00:00 r [place] 03 [facility] 2018-02-06 2018-02-06 Outpatient George [facility] [id number] 19:39:00 22:00:00 Cornelio Hendricks 03 2014-02-11 2014-02-11 [facility] [id number] Memoria 05:17:00 08:10:00 Emergency r [place] 01 l [facility] 2014-02-11 2014-02-11 nullFlavo [facility] [id number] Memoria 05:17:00 08:10:00 Emergency r [place] 01 [facility] 2014-02-10 2014-02-11 Outpatient Erick, [id number] 23:17:00 02:10:00 Kady [id number] Sobeida [id number] 01 Results Test Description Test Time Test Comments Results Result Comments Source ALBUMIN/CREATININE RATIO, URINE, RANDOM 2022-07-12 06:43:39 Test Item Value Reference Range Interpretation Comme nts CREATININE, URINE, CONC. (test 125.6 MG/DL NOT ESTAB code = 2072) ALBUMIN, URINE, RANDOM (test 13.3 MG/DL NOT ESTAB code = 05795) CALC ALBUMIN/CREAT, RND (test 106 MG/G <30 H Note: Albumin/Creatinine code = 82747) ratio referenc e interval reflects ADA an d NKF guidelines. HEMOGLOBIN [id number] 06:03:21 Test Item Value Reference Range Interpretation Comments HEMOGLOBIN A1c (test 12.1 % 4.2-5.6 H AMERIC AN DIABETES code = 82247) ASSOCIATION IDELINES FOR HGB A1C: PREDIABETES/INC REASED RISK . . . . . . . 5 .7-6.4% DIAGNOSIS OF DI ABETES . . . . . . . . . >=6 .5% WITH CONFIRMATION OR APPROPRIATE SYMPTOMS NOTE: ASSAY MAY BE AFFECTED BY HEMOGLOBINOPATH IES (SICKLE CELL ANEMIA, S- C DISEASE, OTHERS) OR VIPUL FICIALLY LOWERED BY DEC REASED RED CELL SURVIVAL ( HEMOLYTIC ANEMIAS, BLOOD LOSS, ETC.). CONSIDER ALTERN ATE TESTING OR LABORATORY C ONSULTATION. COMPREHENSIVE METABOLIC [id number] 05:31:53 Test Item Value Reference Range Interpretation Comments GLUCOSE (test code = 303 MG/DL 70-99 H 2216) BUN (test code = 10 MG/DL 6-20 2207) CREATININE (test 0.49 MG/DL 0.60-1.30 L code = 2214) eGFR (2020 CKD-EPI) 136 >60 (test code = 32372) ML/MIN/1.73 CALC BUN/CREAT (test 20 RATIO 6-28 code = 2235) SODIUM (test code = 138 MEQ/L 540-443 8388) POTASSIUM (test code 4.4 MEQ/L 3.5-5.4 = 2227) CHLORIDE (test code 99 MEQ/L 95-107 = 2214) CARBON DIOXIDE (test 26 MEQ/L 19-31 code = 2206) CALCIUM (test code = 8.9 MG/DL 8.5-10.5 2208) PROTEIN, TOTAL (test 7.7 G/DL 6.1-8.3 code = 2229) ALBUMIN (test code = 4.1 G/DL 3.5-5.2 2200) CALC GLOBULIN (test 3.6 G/DL 1.9-3.7 code = 2240) CALC A/G RATIO (test 1.1 RATIO 1.0-2.6 code = 2234) BILIRUBIN, TOTAL 0.3 MG/DL See_Comment [Automated message] (test code = 2207) The [employer] which generated this result transmit yury reference range : <=1.2. The refe rence range was not u sed to interpret th is result as normal/abnormal . ALKALINE PHOSPHATASE 69 U/L 40-117 (test code = 2204) AST (test code = 27 U/L 9-40 2217) ALT (test code = 41 U/L 5-40 H 2218) LIPID [id number] 05:31:53 Test Item Value Reference Range Interpretation Comments CHOLESTEROL (test 230 MG/DL <200 H code = 2210) TRIGLYCERIDES (test 220 MG/DL <150 H code = 2232) HDL CHOLESTEROL (test 35 MG/DL >39 L code = 2220) CALC LDL CHOL (test 156 MG/DL <100 H NOTE: C ALCULATED LDL code = 2237) IS BASED ON MARISSA-GASTON METHOD WHICHINCLUDES ADJUSTABLE TRIGLYCERIDE:VL DL CHOLESTEROL RAT IO.THIS FACTOR VARIES B Y MEASURED TRIGLY CERIDE AND NON-HDLCHOL ESTEROL CONCENTRATIONS WITH INCREASED CALCU LATED LDL SEENIN HIGH ER TRIGLYCERIDE OR LOWER NON-HDL SPECIME NS. FOR MOREINFORMATION , SEE CLIENT ANNOUNCE MENT AT [email or web address] [email or web address] RATIO LDL/HDL 4.46 RATIO <3.22 H [facility] has important (test code = 2238) pathology staff changes effecti ve 05/31/2022. New pathology staff will provide uninter rupted, excellent patie nt care and clinical consultation. S ee URL: [email or web address] [email or web address]. UNLES S OTHERWISE INDIC ATED, ALL TESTING PER FORMED AT [facility] [employer] [facility]. [address] [place] [address] CRUZ ZAVALETA DIRECTOR: Denny LE MICHEL NUMBER [id number] CAP ACCREDITATION N O. [id number] 16:28:13 Test Item Value Reference Range Interpretation Comments 64-FY-FWBGEGT TEST NOT PERFORMED Unable t o perform 60 MIN (test testing, improp er code = 09081) specimen received.Charge s adjusted as applicable. MANOHAR OREILLY PERFORMED AT [facility] [address] [facility] [address], [facility] [address] [place], [place] [address] CLIA NO: [id number] PAP TEST, THINPREP, [id number] 09:01:19 Test Item Value Reference Range Interpretation Comments SOURCE: (test Cervical/Endoce code = 8001) rvical SLIDES: (test 1 code = 8011) LMP: (test code 05/30/2022 = 8021) SPECIMEN (NOTE) Satisfactory f or ADEQUACY: (test evaluation. code = 14741) Endocervical cells/transform ation zone component present. INTERPRETATION: NILM/NO EPITH. 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 PHYSICIAN OPHTHALMOLOGIST Mamie : (test code = Tadeo 8101) QC TECHNOLOGIST: NEENA Norman (test code = LY,CT(ASCP) 8111) LOCATION: (test (NOTE) Specimens pr ocessed and code = 12961) interpreted at [facility], [address] [place] [address] 4, Phone: , CLIA: [id number] CPT: (test code (NOTE) 34361 UNLESS OTHERWISE = 8140) INDICATED, COMP UTER AIDED AND CYTOTECHNOLOGIS T SCREENING PERFO RMED. The Pap test is a screening test with an inherent, but l ow probability of error. Your patient sh ould be reminded to con sult you immediately if she experiences any suspicious sign s or symptoms, regar dless of her Pap test re sult. An alternate repor t format containing imag es or consolidated pr ior Pap history is avai lable as applicable. HPV HIGH RISK WITH GENOTYPE, [id number] 17:35:53 Test Item Value Reference Range Interpretation Comments HPV HIGH RISK INTERP POSITIVE NEGATIVE A (test code = 20492) HPV 16 (test code = NEGATIVE 53762) HPV 18 (test code = NEGATIVE 30736) HPV, HR, OTHER POSITIVE A Testing meth odology is GENOTYPES (test code real-ti me PCR utilizing = 09974) hydrolysis prob es with the Nevaeh Derrell 4800 system. The manohar t individually de tects genotypes 16 an d 18, as well as the oth er 12 high risk types (31,33,35,39,45 ,51,52,56 ,58,59,66,68). The expected result is negative. A neg ative result does not rule out the presence of HPV not included in the genotype set, a low leve l of infection or sp ecimen sampling error. [facility] has important p athology staff changes e ffective 05/31/2022. New pathology staff will provide uninter rupted, excellent patie nt care and clinical consultation. S ee URL: [email or web address] [employer] [email or web address]. UNLESS OTHERWISE INDICATED, ALL TESTING PERFORMED AT [facility] [address] [place] [address] 4 LABORATORY DIRE CTOR: TARA BAILEY M.D. [place] NUMBER [id number] [facility] [id number] CT/NG, NAAT, [id number] 16:17:56 Test Item Value Reference Range Interpretation Comments CHLAMYDIA, NAAT, POSITIVE NEGATIVE A Testing is performed with THINPREP (test code the Roch e Derrell 6800/8800 = 68382) systems usingre al-time Polymerase Genaro n Reaction (PCR) method. GONORRHEA, NAAT, NEGATIVE NEGATIVE A negative result does THINPREP (test code not excl ude low level = 20848) infection, specimensamplin g error, or collection erro r. Testing is performed wi the Nevaeh Derrell 680 systems usingre al-time Polymerase Genaro n Reaction (PCR) method. VAGINAL PATHOGENS DNA [id number] 14:39:31 Test Item Value Reference Range Interpretation Comments HALINA SPECIES NEGATIVE NEGATIVE (test code = ) G. VAGINALIS NEGATIVE NEGATIVE (test code = 17222) T. VAGINALIS NEGATIVE NEGATIVE Note: The BD A ffirm VPIII (test code = Microbial Ident ification ) Testis a DNA pr obe test intended for us e in the detectionand id entification of Halina spec ies, Gardnerellavagi nalis and Trichomonas vag inalis nucleic acid. [id number] 06:54:42 Test Item Value Reference Range Interpretation Comments TESTOSTERONE (test 20 NG/DL See_Comment NOTE: TO KRISTIN code = 2830) TESTOSTERONE SAY SENSITIVITY IS 12 NG/DL. TO DETER MINE NORMAL VS. SUBN ORMAL TESTOSTERONE IN CHILDREN AND WO MEN, CONSIDER TESTIN G WITH ULTRASENSITIVE TESTOSTERONE. [Automated mess age] The system which ge nerated this result tra nsmitted reference range : <=55. The reference r krys was not used to int erpret this result as normal/abnormal . DHEA [id number] 06:54:42 Test Item Value Reference Range Interpretation Comments DHEA SULFATE (test code = 4225) 264 UG/DL 148-407 LUTEINIZING [id number] 06:33:42 Test Item Value Reference Range Interpretation Comments LUTEINIZING HORMONE 5.6 IU/L SEE BELOW EXPECTED VALUES (test code = 2776) FOR LH FO R FEMALES >17 YEARS M ALES FEMALES >=18 YE ARS 1.8-8.6 IU/L FO LLICULAR 2.4-12.6 IU/L M ID-CYCLE PEAK 14.0-95.6 IU/L LUTEAL PHASE 1. 0-11.4 IU/L POSTMENOPA USAL 7.7-58.5 IU/L [id number] 06:33:42 Test Item Value Reference Range Interpretation Comments PROLACTIN (test 5.5 NG/ML 5.0-37.0 NOTE: Metho dology is Nevaeh code = 2800) Derrell Electroch emiluminescence Immunoassay (EC MICHEL). Values obtained with d ifferent assays/manufact urers cannot be used interchang eably. Results should not be u sed as sole basis to establ stevenson the presence or abs ence of malignancy. TSH, THIRD [id number] 06:33:42 Test Item Value Reference Range Interpretation Comments TSH, THIRD GENERATION (test code 2.480 UIU/ML 0.400-4.100 = 2821) FOLLICLE STIM [id number] 06:33:42 Test Item Value Reference Range Interpretation Comments FOLLICLE STIM 6.2 IU/L SEE BELOW EXPEC YURY VALUES HORMONE (test code = FOR FSH FOR FEMALES >17 2700) YEARS F OLLICULAR 3.5-12.5 IU/L M ID-CYCLE PEAK 4.7-21.5 I U/L LUTEAL PHASE 1.7-7.7 I U/L POSTMENOPAUSAL 25.8-134.8 IU/L [id number] 06:33:42 Test Item Value Reference Range Interpretation Comments ESTRADIOL (test 28.1 PG/ML SEE BELOW EXPE CTED VALUES FOR code = 8063) ESTRADIOL FOR F EMALES >=18 YEARS FO LLICULAR . . . . . . . . . . . . . PG/ML 12.4-233.0 OVUL ATION. . . . . . . . . . . . . . PG/ML 41.0-398.0 LUTE AL PHASE . . . . . . . . . . . . PG/ML 22.3-341.0 POST MENOPAUSAL SUPPLEMENTED/NO N-SUPP . PG/ML <138.0/<20.0 NO TE: TO DETERMINE MARLYS L VS. SUBNORMAL ESTRA DIOL IN POSTMENOPAUSAL FEMALES, CONSIDER ULTRAS ENSITIVE ESTRADIOL (CPL ORDER CODE 5678). METHODOL OGY IS NEVAEH DERRELL ELECTROCH EMILUMINESCENT IMMUNOASSAY WIT H A LIMIT OF DETECTION OF 17 PG/ML. HIV 1/2 4TH GEN, RFLX [id number] 06:31:31 Test Item Value Reference Range Interpretation Comments HIV 1/2 4TH GEN, RFLX CONF (test NON-REACTIVE NON-REACTIVE code = 3514) HEPATITIS PANEL, [id number] 06:31:31 Test Item Value Reference Range Interpretation Comments HEPATITIS A IgM (test NON-REACTIVE NON-REACTIVE code = 85356) HEPATITIS B CORE IgM NON-REACTIVE NON-REACTIVE (test code = 4644) HEPATITIS B SURF AG NON-REACTIVE NON-REACTIVE (test code = 2739) HEPATITIS C ANTIBODY NON-REACTIVE NON-REACTIVE (test code = 4675) INTERPRETATION (NOTE) Hepatitis A HEPATITIS A: (test code sero logy shows no = 2552) evidence of acu te hepatitis A. INTERPRETATION (NOTE) Hepatitis B HEPATITIS B: (test code sero logy shows no = 76376) evidence of acu te hepatitis B and no indication of exposure to hepatitis B vir us in the previous mehdi eight months. INTERPRETATION (NOTE) Hepatitis C HEPATITIS C: (test code sero logy shows no = 22454) evidence of exposure to hepatitisC viru s at this time. I t can take up to 12 months after exposure tothe hepatitis C vir us for antibodies to become detectab le in the blood in certain patient s. [id number] 05:06:07 Test Item Value Reference Range Interpretation Comments RPR RESULT (test NON-REACTIVE NON-REACTIVE code = 3501) RPR TITER (test NOT INDIC. NOT INDIC. [facility] has important code = 3500) TITER pathology staff changes effective 05/31. New patholo gy staff will provide uninterrupted, excellent patie nt care and clinical consultation. S ee URL: [email or web address]. UNLESS OTHERWISE INDIC ATED, ALL TESTING PER FORMED AT [email or web address]. [address] [place] [id number] LABORATOR Y DIRECTOR: Denny LE MICHEL NUMBER [id number] CAP ACCREDITATION N O. [id number] POCT [id number] 00:51:00 Test Item Value Reference Range Interpretation Comments POCT PREG (test code = 1605) negative On board controls acceptable with present C Line (test code = 3574) POCT PREG LOT # (test code = 3575) [id number] POCT PREG TEST DATE (test 2023-12-01 code = 3576) Lab Interpretation (test code = Normal 65919-2) [facility] AND [id number] 05:27:00 Test Item Value Reference Range Interpretation Comments UA Glucose (test code = UA Glucose) 50mg/dl [facility]2019-04-06 05:27:00 Test Item Value Reference Range Interpretation Comments UA Sq Epi (test code = UA Sq Epi) Few /LPF [facility] AND [id number] 05:27:00 Test Item Value Reference Range Interpretation Comments UA Nitrite (test code Negative (07/06/18 12:27 = UA Nitrite) AM) [facility] AND [id number] 05:27:00 Test Item Value Reference Range Interpretation Comments UA Leuk Est (test Negative (07/06/18 12:27 code = UA Leuk Est) AM) [facility] AND [id number] 05:27:00 Test Item Value Reference Range Interpretation Comments UA Blood (test code = Negative (07/06/18 12:27 UA Blood) AM) [facility] AND [id number] 05:27:00 Test Item Value Reference Range Interpretation Comments UA Urobilinogen (test code = UA <=1.0 mg/dL 0.1-1.0 Urobilinogen) [facility] AND [id number] 05:27:00 Test Item Value Reference Range Interpretation Comments UA Turbidity (test code = Clear (07/06/18 12:27 UA Turbidity) AM) [facility] AND [id number] 05:27:00 Test Item Value Reference Range Interpretation Comments UA Spec Grav (test code = UA Spec 1.021 1 Grav) [facility] AND [id number] 05:27:00 Test Item Value Reference Range Interpretation Comments UA Color (test code = Yellow *NA*(07/06/18 UA Color) 12:27 AM) [facility] AND [id number] 05:27:00 Test Item Value Reference Range Interpretation Comments UA WBC (test code = 3 See_Comment [Automa yury message] The UA WBC) system which ge nerated this result transmit yury reference range : <=5. The reference range was not used to interpr et this result as marlys l/abnormal. [facility] AND [id number] 05:27:00 Test Item Value Reference Range Interpretation Comments UA Mucus (test code = UA Mucus) Few /LPF [facility] AND [id number] 05:27:00 Test Item Value Reference Range Interpretation Comments UA Ketones (test code = UA Ketones) Negative [facility] AND [id number] 05:27:00 Test Item Value Reference Range Interpretation Comments UA Bili (test code = Negative *NA*(07/06/18 UA Bili) 12:27 AM) [facility] AND [id number] 05:27:00 Test Item Value Reference Range Interpretation Comments UA pH (test code = UA pH) 6.0 1 5.0-8.0 [facility] AND [id number] 05:27:00 Test Item Value Reference Range Interpretation Comments UA Protein (test code = UA Protein) 30 mg/dL [facility] AND [id number] 05:27:00 Test Item Value Reference Range Interpretation Comments UA Glucose (test code = UA Glucose) 50mg/dl [facility] AND [id number] 05:27:00 Test Item Value Reference Range Interpretation Comments UA Sq Epi (test code = UA Sq Epi) Few /LPF [facility] AND [id number] 05:27:00 Test Item Value Reference Range Interpretation Comments UA Nitrite (test code Negative (07/06/18 12:27 = UA Nitrite) AM) [facility] AND [id number] 05:27:00 Test Item Value Reference Range Interpretation Comments UA Leuk Est (test Negative (07/06/18 12:27 code = UA Leuk Est) AM) [facility] AND [id number] 05:27:00 Test Item Value Reference Range Interpretation Comments UA Blood (test code = Negative (07/06/18 12:27 UA Blood) AM) [facility] AND [id number] 05:27:00 Test Item Value Reference Range Interpretation Comments UA Urobilinogen (test code = UA <=1.0 mg/dL 0.1-1.0 Urobilinogen) [facility] AND [id number] 05:27:00 Test Item Value Reference Range Interpretation Comments UA Turbidity (test code = Clear (07/06/18 12:27 UA Turbidity) AM) [facility] AND [id number] 05:27:00 Test Item Value Reference Range Interpretation Comments UA Spec Grav (test code = UA Spec 1.021 1 Grav) [facility] AND [id number] 05:27:00 Test Item Value Reference Range Interpretation Comments UA Color (test code = Yellow *NA*(07/06/18 UA Color) 12:27 AM) [facility] AND [id number] 05:27:00 Test Item Value Reference Range Interpretation Comments UA WBC (test code = 3 See_Comment [Automa yury message] The UA WBC) system which ge nerated this result transmit yury reference range : <=5. The reference range was not used to interpr et this result as marlys l/abnormal. [facility] AND [id number] 05:27:00 Test Item Value Reference Range Interpretation Comments UA Mucus (test code = UA Mucus) Few /LPF [facility] AND [id number] 05:27:00 Test Item Value Reference Range Interpretation Comments UA Ketones (test code = UA Ketones) Negative [facility] AND [id number] 05:27:00 Test Item Value Reference Range Interpretation Comments UA Sq Epi (test code = UA Sq Epi) Few /LPF [facility] AND [id number] 05:27:00 Test Item Value Reference Range Interpretation Comments UA Nitrite (test code Negative (07/06/18 12:27 = UA Nitrite) AM) [facility] AND [id number] 05:27:00 Test Item Value Reference Range Interpretation Comments UA Leuk Est (test Negative (07/06/18 12:27 code = UA Leuk Est) AM) [facility] AND [id number] 05:27:00 Test Item Value Reference Range Interpretation Comments UA Blood (test code = Negative (07/06/18 12:27 UA Blood) AM) [facility] AND [id number] 05:27:00 Test Item Value Reference Range Interpretation Comments UA Urobilinogen (test code = UA <=1.0 mg/dL 0.1-1.0 Urobilinogen) [facility] AND [id number] 05:27:00 Test Item Value Reference Range Interpretation Comments UA Turbidity (test code = Clear (07/06/18 12:27 UA Turbidity) AM) [facility] AND [id number] 05:27:00 Test Item Value Reference Range Interpretation Comments UA Spec Grav (test code = UA Spec 1.021 1 Grav) [facility] AND [id number] 05:27:00 Test Item Value Reference Range Interpretation Comments UA Color (test code = Yellow *NA*(07/06/18 UA Color) 12:27 AM) [facility] AND [id number] 05:27:00 Test Item Value Reference Range Interpretation Comments UA WBC (test code = 3 See_Comment [Automa yury message] The UA WBC) system which ge nerated this result transmit yury reference range : <=5. The reference range was not used to interpr et this result as marlys l/abnormal. [facility] AND [id number] 05:27:00 Test Item Value Reference Range Interpretation Comments UA Mucus (test code = UA Mucus) Few /LPF [facility] AND [id number] 05:27:00 Test Item Value Reference Range Interpretation Comments UA Bili (test code = Negative *NA*(07/06/18 UA Bili) 12:27 AM) [facility] AND [id number] 05:27:00 Test Item Value Reference Range Interpretation Comments UA Ketones (test code = UA Ketones) Negative [facility] AND [id number] 05:27:00 Test Item Value Reference Range Interpretation Comments UA Bili (test code = Negative *NA*(07/06/18 UA Bili) 12:27 AM) [facility] AND [id number] 05:27:00 Test Item Value Reference Range Interpretation Comments UA pH (test code = UA pH) 6.0 1 5.0-8.0 [facility] AND [id number] 05:27:00 Test Item Value Reference Range Interpretation Comments UA Protein (test code = UA Protein) 30 mg/dL [facility] AND [id number] 05:27:00 Test Item Value Reference Range Interpretation Comments UA Glucose (test code = UA Glucose) 50mg/dl [facility] AND [id number] 05:27:00 Test Item Value Reference Range Interpretation Comments UA pH (test code = UA pH) 6.0 1 5.0-8.0 [facility] AND [id number] 05:27:00 Test Item Value Reference Range Interpretation Comments UA Protein (test code = UA Protein) 30 mg/dL [facility]Xv[facility]oQQIZLNYILN7930-52-95 04:10:00 Test Item Value Reference Range Interpretation Comments Eosinophils # (test code 0.1 See_Comment [A utomated message] The = Eosinophils #) system whic h generated this result tra nsmitted reference range : <=0.5. The reference r krys was not used to int erpret this result as normal/abnormal . [facility] [id number] 04:10:00 Test Item Value Reference Range Interpretation Comments Monocytes # (test code 0.7 See_Comment [Aut omated message] The = Monocytes #) system which generated this result tra nsmitted reference range : <=0.8. The reference r krys was not used to int erpret this result as normal/abnormal . [facility] CenterBiydlksMKTFKSQMVR1689-12-13 04:10:00 Test Item Value Reference Range Interpretation Comments Lymphocytes (test code = Lymphocytes) 19.4 20.0-40.0 [facility] Cent[id number] 04:10:00 Test Item Value Reference Range Interpretation Comments Segs (test code = Segs) 73.6 45.0-75.0 [facility] [id number] 04:10:00 Test Item Value Reference Range Interpretation Comments Lymphocytes # (test code = Lymphocytes 2.2 1.0-5.5 #) [facility] [id number] 04:10:00 Test Item Value Reference Range Interpretation Comments Eosinophils (test code = 0.6 See_Comment [A utomated message] The Eosinophils) system which ge nerated this result tra nsmitted reference range : <=4.0. The reference r krys was not used to int erpret this result as normal/abnormal . [facility] CenterLkjhgbvUNGPDRJRCQ1797-22-56 04:10:00 Test Item Value Reference Range Interpretation Comments Neutrophils # (test code = Neutrophils 8.2 1.5-8.1 #) [facility] C[id number] 04:10:00 Test Item Value Reference Range Interpretation Comments Monocytes (test code = Monocytes) 5.8 2.0-12.0 [facility] CenterLktlauoIWRBPTNVZA2036-44-01 04:10:00 Test Item Value Reference Range Interpretation Comments Basophils (test code = 0.6 See_Comment [Aut omated message] The Basophils) system which ge nerated this result tra nsmitted reference range : <=1.0. The reference r krys was not used to int erpret this result as normal/abnormal . [facility] CenterJbrmkghQAUPQZCPPB6387-93-65 04:10:00 Test Item Value Reference Range Interpretation Comments PTT (test code = PTT) 32.9 s 22.9-35.8 [facility]annCARD[facility]AC [id number] 04:10:00 Test Item Value Reference Range Interpretation Comments Total CK (test code = Total CK) 32 12-191 [facility] [id number] 04:10:00 Test Item Value Reference Range Interpretation Comments MPV (test code = MPV) 8.0 7.4-10.4 [facility] EdchahfFMKCALJSFM4721-72-13 04:10:00 Test Item Value Reference Range Interpretation Comments Platelet (test code = Platelet) 406 133-450 [facility] [id number] 04:10:00 Test Item Value Reference Range Interpretation Comments MCHC (test code = MCHC) 33.9 32.0-36.0 [facility] LmdcmgdWBNJNKSLVC0708-53-15 04:10:00 Test Item Value Reference Range Interpretation Comments RDW (test code = RDW) 13.3 11.5-14.5 [facility] NoiqqqmVZQMHISKNZ5181-63-93 04:10:00 Test Item Value Reference Range Interpretation Comments MCH (test code = MCH) 29.2 pg 27.0-31.0 [facility] CxvwfxsKZMDWSRQYT6984-53-03 04:10:00 Test Item Value Reference Range Interpretation Comments MCV (test code = MCV) 86.2 80.0-98.0 [facility] CenterNvvowpmCSCERTNPWC2579-64-75 04:10:00 Test Item Value Reference Range Interpretation Comments WBC (test code = WBC) 11.2 3.7-10.4 [facility] CenterLohhhagMUJFUVNJWN2484-36-12 04:10:00 Test Item Value Reference Range Interpretation Comments RBC (test code = RBC) 4.10 4.20-5.40 [facility] BlprezcSSYIOSLXFX8430-38-89 04:10:00 Test Item Value Reference Range Interpretation Comments Hgb (test code = Hgb) 12.0 12.0-16.0 [facility] OdwqhaiHHWIMTMWFJ0892-73-09 04:10:00 Test Item Value Reference Range Interpretation Comments Hct (test code = Hct) 35.4 36.0-48.0 [facility]CARD[facility]AC FKBXQYS4409-83-17 04:10:00 Test Item Value Reference Range Interpretation Comments Troponin-I (test code no gt See_Comment [Auto mated message] The = Troponin-I) system which g enerated this result transmit yury reference range : <=0.40. The reference r krys was not used to interpr et this result as marlys l/abnormal. [facility] CenterJmwoakuZDBSVWEMJF0781-52-26 04:10:00 Test Item Value Reference Range Interpretation Comments PT (test code = PT) 12.8 s 12.0-14.7 [facility] CenterAqkcovpBMCBBGHKSM4919-82-40 04:10:00 Test Item Value Reference Range Interpretation Comments INR (test code = INR) 0.98 1 0.85-1.17 [facility]2019-04-06 04:10:00 Test Item Value Reference Range Interpretation Comments Procalcitonin Lvl <0.05 ng/mL See_Comment [Automate d message] (test code = The system whic h Procalcitonin Lvl) generated this result transmit yury reference range : <=0.10. The reference range was not used to interpret this result as normal/abnormal . [facility]2019-04-06 04:10:00 Test Item Value Reference Range Interpretation Comments eGFR (test code = eGFR) 115 [facility]2019-04-06 04:10:00 Test Item Value Reference Range Interpretation Comments Glucose Lvl (test code = Glucose Lvl) 179 70-99 [facility]2019-04-06 04:10:00 Test Item Value Reference Range Interpretation Comments Sodium Lvl (test code = Sodium Lvl) 137 135-145 [facility]2019-04-06 04:10:00 Test Item Value Reference Range Interpretation Comments Potassium Lvl (test code = Potassium 3.8 3.5-5.1 Lvl) [facility]2019-04-06 04:10:00 Test Item Value Reference Range Interpretation Comments BUN (test code = BUN) 10 7-22 [facility]2019-04-06 04:10:00 Test Item Value Reference Range Interpretation Comments Creatinine Lvl (test code = Creatinine 0.76 0.50-1.40 Lvl) [facility]2019-04-06 04:10:00 Test Item Value Reference Range Interpretation Comments Chloride Lvl (test code = Chloride Lvl) 100 95-109 [place] [id number] 04:10:00 Test Item Value Reference Range Interpretation Comments Albumin Lvl (test code = Albumin Lvl) 3.8 3.5-5.0 [facility]2019-04-06 04:10:00 Test Item Value Reference Range Interpretation Comments Calcium Lvl (test code = Calcium Lvl) 9.5 8.5-10.5 [facility]2019-04-06 04:10:00 Test Item Value Reference Range Interpretation Comments Total Protein (test code = Total 9.1 6.4-8.4 Protein) [facility]2019-04-06 04:10:00 Test Item Value Reference Range Interpretation Comments CO2 (test code = CO2) 28 24-32 [facility]2019-04-06 04:10:00 Test Item Value Reference Range Interpretation Comments ALT (test code = ALT) 68 See_Comment [Auto mated message] The system which ge nerated this result transmit yury reference range : <=65. The reference range was not used to interpr et this result as marlys l/abnormal. [facility]2019-04-06 04:10:00 Test Item Value Reference Range Interpretation Comments Alk Phos (test code = Alk Phos) 79 39-136 [facility]2019-04-06 04:10:00 Test Item Value Reference Range Interpretation Comments AST (test code = AST) 41 See_Comment [Auto mated message] The system which ge nerated this result transmit yury reference range : <=37. The reference range was not used to interpr et this result as marlys l/abnormal. [facility]2019-04-06 04:10:00 Test Item Value Reference Range Interpretation Comments Bili Total (test code = Bili Total) 0.3 0.2-1.3 [facility]2019-04-06 04:10:00 Test Item Value Reference Range Interpretation Comments A/G Ratio (test code = A/G Ratio) 0.7 1 0.7-1.6 [facility]2019-04-06 04:10:00 Test Item Value Reference Range Interpretation Comments Globulin (test code = Globulin) 5.3 2.7-4.2 [facility]2019-04-06 04:10:00 Test Item Value Reference Range Interpretation Comments AGAP (test code = AGAP) 12.8 10.0-20.0 [facility]2019-04-06 04:10:00 Test Item Value Reference Range Interpretation Comments B/C Ratio (test code = B/C Ratio) 13 1 6-25 [facility]2019-04-06 04:10:00 Test Item Value Reference Range Interpretation Comments Lactic Acid Lvl (test code = Lactic 1.6 0.5-2.2 Acid Lvl) [place] [id number] 04:10:00 Test Item Value Reference Range Interpretation Comments S Preg (test code = S Negative *NA*(07/05/18 Preg) 11:10 PM) [facility] CenterHryqnojOOVETOOHMG0135-72-75 04:10:00 Test Item Value Reference Range Interpretation Comments Basophils # (test code 0.1 See_Comment [Aut omated message] The = Basophils #) system which generated this result tra nsmitted reference range : <=0.2. The reference r krys was not used to int erpret this result as normal/abnormal . [facility] CenterKkzzksgSFCYDNVWEB7292-58-03 04:10:00 Test Item Value Reference Range Interpretation Comments Eosinophils # (test code 0.1 See_Comment [A utomated message] The = Eosinophils #) system whic h generated this result tra nsmitted reference range : <=0.5. The reference r krys was not used to int erpret this result as normal/abnormal . [facility] CenterOxinkmpKPITCSVNHQ4347-30-47 04:10:00 Test Item Value Reference Range Interpretation Comments Monocytes # (test code 0.7 See_Comment [Aut omated message] The = Monocytes #) system which generated this result tra nsmitted reference range : <=0.8. The reference r krys was not used to int erpret this result as normal/abnormal . [facility] CenterHwuwxyjVTADDRSYGR2401-92-59 04:10:00 Test Item Value Reference Range Interpretation Comments Lymphocytes (test code = Lymphocytes) 19.4 20.0-40.0 [facility] CenterSpbsqtnDYJCZVFADL4554-72-17 04:10:00 Test Item Value Reference Range Interpretation Comments Segs (test code = Segs) 73.6 45.0-75.0 [facility] CenterThsrcznXYCGPEHDHV6962-34-85 04:10:00 Test Item Value Reference Range Interpretation Comments Lymphocytes # (test code = Lymphocytes 2.2 1.0-5.5 #) [facility] CenterNsomtzoFXKNPHDEXG9687-12-34 04:10:00 Test Item Value Reference Range Interpretation Comments Eosinophils (test code = 0.6 See_Comment [A utomated message] The Eosinophils) system which ge nerated this result tra nsmitted reference range : <=4.0. The reference r krys was not used to int erpret this result as normal/abnormal . [facility] CenterOnypqdrIQFHFHBHXA6861-13-81 04:10:00 Test Item Value Reference Range Interpretation Comments Neutrophils # (test code = Neutrophils 8.2 1.5-8.1 #) [facility] CenterWrfeakjGUNAPESZIH4952-01-57 04:10:00 Test Item Value Reference Range Interpretation Comments Monocytes (test code = Monocytes) 5.8 2.0-12.0 [facility] CenterOeggqvoDSKZICDMIQ9613-71-57 04:10:00 Test Item Value Reference Range Interpretation Comments Basophils (test code = 0.6 See_Comment [Aut omated message] The Basophils) system which ge nerated this result tra nsmitted reference range : <=1.0. The reference r krys was not used to int erpret this result as normal/abnormal . [facility] CenterZlpyzqjVDVMZNDKFT1164-11-63 04:10:00 Test Item Value Reference Range Interpretation Comments PTT (test code = PTT) 32.9 s 22.9-35.8 [facility] CenterDeerdfcWINEWPRWAH5027-70-92 04:10:00 Test Item Value Reference Range Interpretation Comments MPV (test code = MPV) 8.0 7.4-10.4 [facility] CenterLhkfpmzGNUPQBIZOV9730-41-68 04:10:00 Test Item Value Reference Range Interpretation Comments Platelet (test code = Platelet) 406 133-450 [facility] CenterVrtuexfULAWVGMMMU7241-10-52 04:10:00 Test Item Value Reference Range Interpretation Comments MCHC (test code = MCHC) 33.9 32.0-36.0 [facility] CenterXytxvicKACUXIHXEK9881-31-51 04:10:00 Test Item Value Reference Range Interpretation Comments RDW (test code = RDW) 13.3 11.5-14.5 [facility] CenterWbxnxyyLRXTSXCLTP2910-04-80 04:10:00 Test Item Value Reference Range Interpretation Comments MCH (test code = MCH) 29.2 pg 27.0-31.0 [facility]VDNDQXWDJ8497[facility]21-45 04:10:00 Test Item Value Reference Range Interpretation Comments MCV (test code = MCV) 86.2 80.0-98.0 [facility]ImjmfniSYWKXPIGLS0871-68-44 04:10:00 Test Item Value Reference Range Interpretation Comments WBC (test code = WBC) 11.2 3.7-10.4 [facility] HospitalMkcrlivJCWOQROPIL4138-19-18 04:10:00 Test Item Value Reference Range Interpretation Comments RBC (test code = RBC) 4.10 4.20-5.40 [facility]WhgcvxvKVDHYNVTHI1707-83-56 04:10:00 Test Item Value Reference Range Interpretation Comments Hgb (test code = Hgb) 12.0 12.0-16.0 [facility] CenterKmociyhBCGRULJCPW1107-53-75 04:10:00 Test Item Value Reference Range Interpretation Comments Hct (test code = Hct) 35.4 36.0-48.0 [facility] CenterJtendsfMEXZWBWIKQ6084-36-81 04:10:00 Test Item Value Reference Range Interpretation Comments PT (test code = PT) 12.8 s 12.0-14.7 [facility] HospitalXwmjhkbPEQNVAXVTH3303-23-59 04:10:00 Test Item Value Reference Range Interpretation Comments INR (test code = INR) 0.98 1 0.85-1.17 [facility]Mas [facility]ilSA[facility] RMYBAQK8387-24-85 04:10:00 Test Item Value Reference Range Interpretation Comments Total CK (test code = Total CK) 32 12-191 [facility] YLBCZJY8470-36-79 04:10:00 Test Item Value Reference Range Interpretation Comments Troponin-I (test code no gt See_Comment [Auto mated message] The = Troponin-I) system which g enerated this result transmit yury reference range : <=0.40. The reference r krys was not used to interpr et this result as marlys l/abnormal. [facility] [id number] 04:10:00 Test Item Value Reference Range Interpretation Comments Procalcitonin Lvl <0.05 ng/mL See_Comment [Automate d message] (test code = The system whic h Procalcitonin Lvl) generated this result transmit yury reference range : <=0.10. The reference range was not used to interpret this result as normal/abnormal . [facility]2019-04-06 04:10:00 Test Item Value Reference Range Interpretation Comments eGFR (test code = eGFR) 115 [facility]2019-04-06 04:10:00 Test Item Value Reference Range Interpretation Comments Glucose Lvl (test code = Glucose Lvl) 179 70-99 [facility]2019-04-06 04:10:00 Test Item Value Reference Range Interpretation Comments Sodium Lvl (test code = Sodium Lvl) 137 135-145 [facility]2019-04-06 04:10:00 Test Item Value Reference Range Interpretation Comments Potassium Lvl (test code = Potassium 3.8 3.5-5.1 Lvl) [facility]2019-04-06 04:10:00 Test Item Value Reference Range Interpretation Comments BUN (test code = BUN) 10 7-22 [facility]2019-04-06 04:10:00 Test Item Value Reference Range Interpretation Comments Creatinine Lvl (test code = Creatinine 0.76 0.50-1.40 Lvl) [facility]2019-04-06 04:10:00 Test Item Value Reference Range Interpretation Comments Chloride Lvl (test code = Chloride Lvl) 100 95-109 [facility]2019-04-06 04:10:00 Test Item Value Reference Range Interpretation Comments Albumin Lvl (test code = Albumin Lvl) 3.8 3.5-5.0 [facility]2019-04-06 04:10:00 Test Item Value Reference Range Interpretation Comments Calcium Lvl (test code = Calcium Lvl) 9.5 8.5-10.5 [facility]2019-04-06 04:10:00 Test Item Value Reference Range Interpretation Comments Total Protein (test code = Total 9.1 6.4-8.4 Protein) [facility]2019-04-06 04:10:00 Test Item Value Reference Range Interpretation Comments CO2 (test code = CO2) 28 24-32 [facility]2019-04-06 04:10:00 Test Item Value Reference Range Interpretation Comments ALT (test code = ALT) 68 See_Comment [Auto mated message] The system which ge nerated this result transmit yury reference range : <=65. The reference range was not used to interpr et this result as marlys l/abnormal. [facility] [id number] 04:10:00 Test Item Value Reference Range Interpretation Comments Alk Phos (test code = Alk Phos) 79 39-136 [facility] CenterRFMicronECU HEALTH [facility]AUF[facility] [id number] 04:10:00 Test Item Value Reference Range Interpretation Comments AST (test code = AST) 41 See_Comment [Auto mated message] The system which ge nerated this result transmit yury reference range : <=37. The reference range was not used to interpr et this result as marlys l/abnormal. [facility] [id number] 04:10:00 Test Item Value Reference Range Interpretation Comments Bili Total (test code = Bili Total) 0.3 0.2-1.3 [facility] [id number] 04:10:00 Test Item Value Reference Range Interpretation Comments A/G Ratio (test code = A/G Ratio) 0.7 1 0.7-1.6 [facility] [id number] 04:10:00 Test Item Value Reference Range Interpretation Comments Globulin (test code = Globulin) 5.3 2.7-4.2 [facility] [id number] 04:10:00 Test Item Value Reference Range Interpretation Comments AGAP (test code = AGAP) 12.8 10.0-20.0 [facility] [id number] 04:10:00 Test Item Value Reference Range Interpretation Comments B/C Ratio (test code = B/C Ratio) 13 1 6-25 [facility] [id number] 04:10:00 Test Item Value Reference Range Interpretation Comments Lactic Acid Lvl (test code = Lactic 1.6 0.5-2.2 Acid Lvl) [facility] HospitalYjkyipkOWZQAFELIISKJ6711-27-53 04:10:00 Test Item Value Reference Range Interpretation Comments S Preg (test code = S Negative *NA*(07/05/18 Preg) 11:10 PM) [facility]jfpklfPONAXMBQDV1344-72-21 04:10:00 Test Item Value Reference Range Interpretation Comments Basophils # (test code 0.1 See_Comment [Aut omated message] The = Basophils #) system which generated this result tra nsmitted reference range : <=0.2. The reference r krys was not used to int erpret this result as normal/abnormal . [facility] CenterVijuitkJFOKJTUEWJ9609-35-91 04:10:00 Test Item Value Reference Range Interpretation Comments Eosinophils # (test code 0.1 See_Comment [A utomated message] The = Eosinophils #) system whic h generated this result tra nsmitted reference range : <=0.5. The reference r krys was not used to int erpret this result as normal/abnormal . [facility] CenterSzhbscxELVUMVAEHS5421-28-06 04:10:00 Test Item Value Reference Range Interpretation Comments Monocytes # (test code 0.7 See_Comment [Aut omated message] The = Monocytes #) system which generated this result tra nsmitted reference range : <=0.8. The reference r krys was not used to int erpret this result as normal/abnormal . [facility] CenterFjtcislHRGFKQILEG5879-94-34 04:10:00 Test Item Value Reference Range Interpretation Comments Lymphocytes (test code = Lymphocytes) 19.4 20.0-40.0 [facility] CenterGdidqrlNHYXQDAUSQ9970-29-36 04:10:00 Test Item Value Reference Range Interpretation Comments Segs (test code = Segs) 73.6 45.0-75.0 [facility] CenterZxneubyPFPHNMSPAF9802-55-42 04:10:00 Test Item Value Reference Range Interpretation Comments Lymphocytes # (test code = Lymphocytes 2.2 1.0-5.5 #) [facility] CenterYknfvfhOFBFSURQHV8979-76-09 04:10:00 Test Item Value Reference Range Interpretation Comments Eosinophils (test code = 0.6 See_Comment [A utomated message] The Eosinophils) system which ge nerated this result tra nsmitted reference range : <=4.0. The reference r krys was not used to int erpret this result as normal/abnormal . [facility] CenterGuwdyfhTSJAKSMHHD6253-45-31 04:10:00 Test Item Value Reference Range Interpretation Comments Neutrophils # (test code = Neutrophils 8.2 1.5-8.1 #) [facility] CenterEbmesrrLARSUOPGEC2705-17-59 04:10:00 Test Item Value Reference Range Interpretation Comments Monocytes (test code = Monocytes) 5.8 2.0-12.0 [facility] CenterOcipcyyMLMFQMRDNN0759-92-70 04:10:00 Test Item Value Reference Range Interpretation Comments Basophils (test code = 0.6 See_Comment [Aut omated message] The Basophils) system which ge nerated this result tra nsmitted reference range : <=1.0. The reference r krys was not used to int erpret this result as normal/abnormal . [facility] CenterBzhtbvePGMNFSCOZS2315-11-09 04:10:00 Test Item Value Reference Range Interpretation Comments PTT (test code = PTT) 32.9 s 22.9-35.8 [facility] CenterMczcfmmPHFAQNWKGJ6241-51-00 04:10:00 Test Item Value Reference Range Interpretation Comments MPV (test code = MPV) 8.0 7.4-10.4 [facility] CenterNmvfymxWTTWUAGXTE8266-79-89 04:10:00 Test Item Value Reference Range Interpretation Comments Platelet (test code = Platelet) 406 133-450 [facility] CenterZqlxgenWHRWCEYAUZ8291-37-21 04:10:00 Test Item Value Reference Range Interpretation Comments MCHC (test code = MCHC) 33.9 32.0-36.0 [facility] CenterUxcmamfVGJQGIRXHW6331-33-75 04:10:00 Test Item Value Reference Range Interpretation Comments RDW (test code = RDW) 13.3 11.5-14.5 [facility] CenterCygaitqMTRMBXCHSC9436-77-09 04:10:00 Test Item Value Reference Range Interpretation Comments MCH (test code = MCH) 29.2 pg 27.0-31.0 [facility] CenterSgpkgbcDBCTAWKCZR7904-49-60 04:10:00 Test Item Value Reference Range Interpretation Comments MCV (test code = MCV) 86.2 80.0-98.0 [facility] CenterCvmcuyfIHEJNTVGYX2039-49-24 04:10:00 Test Item Value Reference Range Interpretation Comments WBC (test code = WBC) 11.2 3.7-10.4 [facility] CenterJptkygeFNVUKTSOXB5220-19-48 04:10:00 Test Item Value Reference Range Interpretation Comments RBC (test code = RBC) 4.10 4.20-5.40 [facility] CenterLxhgkcpRIGCTMBOFQ2574-08-74 04:10:00 Test Item Value Reference Range Interpretation Comments Hgb (test code = Hgb) 12.0 12.0-16.0 [facility] CenterFzesmufRKRTYUNNFR9565-70-88 04:10:00 Test Item Value Reference Range Interpretation Comments Hct (test code = Hct) 35.4 36.0-48.0 [facility] CenterUahlmprSCTGPVCEXC4228-36-46 04:10:00 Test Item Value Reference Range Interpretation Comments PT (test code = PT) 12.8 s 12.0-14.7 [facility] CenterBtaiczeXFPEEETHAJ5429-11-08 04:10:00 Test Item Value Reference Range Interpretation Comments INR (test code = INR) 0.98 1 0.85-1.17 [facility] [id number] 04:10:00 Test Item Value Reference Range Interpretation Comments Total CK (test code = Total CK) 32 12-191 [facility] CRYDGHR0723-57-25 04:10:00 Test Item Value Reference Range Interpretation Comments Troponin-I (test code no gt See_Comment [Auto mated message] The = Troponin-I) system which g enerated this result transmit yury reference range : <=0.40. The reference r krys was not used to interpr et this result as marlys l/abnormal. [facility] [id number] 04:10:00 Test Item Value Reference Range Interpretation Comments Procalcitonin Lvl <0.05 ng/mL See_Comment [Automate d message] (test code = The system whic h Procalcitonin Lvl) generated this result transmit yury reference range : <=0.10. The reference range was not used to interpret this result as normal/abnormal . [facility]2019-04-06 04:10:00 Test Item Value Reference Range Interpretation Comments eGFR (test code = eGFR) 115 [facility]2019-04-06 04:10:00 Test Item Value Reference Range Interpretation Comments Glucose Lvl (test code = Glucose Lvl) 179 70-99 [facility]2019-04-06 04:10:00 Test Item Value Reference Range Interpretation Comments Sodium Lvl (test code = Sodium Lvl) 137 135-145 [facility]2019-04-06 04:10:00 Test Item Value Reference Range Interpretation Comments Potassium Lvl (test code = Potassium 3.8 3.5-5.1 Lvl) [facility]2019-04-06 04:10:00 Test Item Value Reference Range Interpretation Comments BUN (test code = BUN) 10 7-22 [facility]2019-04-06 04:10:00 Test Item Value Reference Range Interpretation Comments Creatinine Lvl (test code = Creatinine 0.76 0.50-1.40 Lvl) [facility]2019-04-06 04:10:00 Test Item Value Reference Range Interpretation Comments Chloride Lvl (test code = Chloride Lvl) 100 95-109 [facility]2019-04-06 04:10:00 Test Item Value Reference Range Interpretation Comments Albumin Lvl (test code = Albumin Lvl) 3.8 3.5-5.0 [facility]2019-04-06 04:10:00 Test Item Value Reference Range Interpretation Comments Calcium Lvl (test code = Calcium Lvl) 9.5 8.5-10.5 [facility]2019-04-06 04:10:00 Test Item Value Reference Range Interpretation Comments Total Protein (test code = Total 9.1 6.4-8.4 Protein) [facility]2019-04-06 04:10:00 Test Item Value Reference Range Interpretation Comments CO2 (test code = CO2) 28 24-32 [facility]2019-04-06 04:10:00 Test Item Value Reference Range Interpretation Comments ALT (test code = ALT) 68 See_Comment [Auto mated message] The system which ge nerated this result transmit yury reference range : <=65. The reference range was not used to interpr et this result as marlys l/abnormal. [facility]2019-04-06 04:10:00 Test Item Value Reference Range Interpretation Comments Alk Phos (test code = Alk Phos) 79 39-136 [facility]2019-04-06 04:10:00 Test Item Value Reference Range Interpretation Comments AST (test code = AST) 41 See_Comment [Auto mated message] The system which ge nerated this result transmit yury reference range : <=37. The reference range was not used to interpr et this result as marlys l/abnormal. [facility]2019-04-06 04:10:00 Test Item Value Reference Range Interpretation Comments Bili Total (test code = Bili Total) 0.3 0.2-1.3 [facility]2019-04-06 04:10:00 Test Item Value Reference Range Interpretation Comments A/G Ratio (test code = A/G Ratio) 0.7 1 0.7-1.6 [facility] [id number] 04:10:00 Test Item Value Reference Range Interpretation Comments Globulin (test code = Globulin) 5.3 2.7-4.2 [facility] [id number] 04:10:00 Test Item Value Reference Range Interpretation Comments AGAP (test code = AGAP) 12.8 10.0-20.0 [facility]2019-04-06 04:10:00 Test Item Value Reference Range Interpretation Comments B/C Ratio (test code = B/C Ratio) 13 1 6-25 [facility] [id number] 04:10:00 Test Item Value Reference Range Interpretation Comments Lactic Acid Lvl (test code = Lactic 1.6 0.5-2.2 Acid Lvl) [place] [id number] 04:10:00 Test Item Value Reference Range Interpretation Comments S Preg (test code = S Negative *NA*(07/05/18 Preg) 11:10 PM) [facility] CenterYnkssjwWQROQCZAVG4817-98-42 04:10:00 Test Item Value Reference Range Interpretation Comments Basophils # (test code 0.1 See_Comment [Aut omated message] The = Basophils #) system which generated this result tra nsmitted reference range : <=0.2. The reference r krys was not used to int erpret this result as normal/abnormal . [facility]XrsgusmLLFWCQUIFWSA8559-01-92 12:21:00 Test Item Value Reference Range Interpretation Comments AGAP (test code = AGAP) 8.5 10.0-20.0 [facility] HospitalRuinnmzFJETRWSODFDL1398-34-02 12:21:00 Test Item Value Reference Range Interpretation Comments eGFR (test code = eGFR) 137 [facility] HospitalEsmstffYILGJSGEXUUV8610-46-82 12:21:00 Test Item Value Reference Range Interpretation Comments Creatinine Lvl (test code = Creatinine 0.54 0.50-1.40 Lvl) [facility] HospitalPzkvprzWHSQODBCFNEY9665-62-24 12:21:00 Test Item Value Reference Range Interpretation Comments CO2 (test code = CO2) 28 24-32 [facility]YwddwyaAMTXAVJOSCZM4750-88-47 12:21:00 Test Item Value Reference Range Interpretation Comments BUN (test code = BUN) 7 7-22 [facility] HospitalEicynsjSOUOECRNBMWR7855-84-67 12:21:00 Test Item Value Reference Range Interpretation Comments Glucose Lvl (test code = Glucose Lvl) 118 70-99 [facility] HospitalHuvaqheUGWCEXMCFPYU8039-02-54 12:21:00 Test Item Value Reference Range Interpretation Comments Potassium Lvl (test code = Potassium 3.5 3.5-5.1 Lvl) [facility] HospitalZsgqcqxXTLRRTDABQPX9085-42-32 12:21:00 Test Item Value Reference Range Interpretation Comments Sodium Lvl (test code = Sodium Lvl) 140 135-145 [facility] HospitalFmpqcabGDLCEFRXPVCA6510-50-97 12:21:00 Test Item Value Reference Range Interpretation Comments Chloride Lvl (test code = Chloride Lvl) 107 95-109 [facility] HospitalHusybevPBBOONPZBVYP6192-54-97 12:21:00 Test Item Value Reference Range Interpretation Comments Calcium Lvl (test code = Calcium Lvl) 8.8 8.5-10.5 [facility] CenterBagqqgoUTJMAJDHBW7784-12-65 12:21:00 Test Item Value Reference Range Interpretation Comments Basophils (test code = 0.5 See_Comment [Aut omated message] The Basophils) system which ge nerated this result tra nsmitted reference range : <=1.0. The reference r krys was not used to int erpret this result as normal/abnormal . [facility] CenterTmxavbkLLNBNQXXVF1302-57-49 12:21:00 Test Item Value Reference Range Interpretation Comments Monocytes (test code = Monocytes) 4.0 2.0-12.0 [facility] CenterEehlukrKODTACQQWX2786-33-93 12:21:00 Test Item Value Reference Range Interpretation Comments Lymphocytes # (test code = Lymphocytes 6.0 1.0-5.5 #) [facility] CenterHduvpedMBBGGGTGHS4215-95-94 12:21:00 Test Item Value Reference Range Interpretation Comments Monocytes # (test code 0.5 See_Comment [Aut omated message] The = Monocytes #) system which generated this result tra nsmitted reference range : <=0.8. The reference r krys was not used to int erpret this result as normal/abnormal . [facility] CenterBmdtuosUKTAULHHWE8714-12-04 12:21:00 Test Item Value Reference Range Interpretation Comments Eosinophils # (test code 0.2 See_Comment [A utomated message] The = Eosinophils #) system whic h generated this result tra nsmitted reference range : <=0.5. The reference r krys was not used to int erpret this result as normal/abnormal . [facility] CenterPshuftrZNRKAIWBHY6982-08-31 12:21:00 Test Item Value Reference Range Interpretation Comments Eosinophils (test code = 1.5 See_Comment [A utomated message] The Eosinophils) system which ge nerated this result tra nsmitted reference range : <=4.0. The reference r krys was not used to int erpret this result as normal/abnormal . [facility] CenterNigbnjoNVPBCQQLYH0817-67-72 12:21:00 Test Item Value Reference Range Interpretation Comments Neutrophils # (test code = Neutrophils 6.0 1.5-8.1 #) [facility] CenterPusuklfWNQVQSAJWG5275-17-28 12:21:00 Test Item Value Reference Range Interpretation Comments Basophils # (test code 0.1 See_Comment [Aut omated message] The = Basophils #) system which generated this result tra nsmitted reference range : <=0.2. The reference r krys was not used to int erpret this result as normal/abnormal . [facility] CenterRfyrgavLPLEUGEMFW9043-33-27 12:21:00 Test Item Value Reference Range Interpretation Comments Segs (test code = Segs) 47.2 45.0-75.0 [facility] CenterXfytkyyYTLXKETIVK6167-36-78 12:21:00 Test Item Value Reference Range Interpretation Comments Lymphocytes (test code = Lymphocytes) 46.8 20.0-40.0 [facility] CenterKrxqnxuGQGRSNDXWE9101-60-53 12:21:00 Test Item Value Reference Range Interpretation Comments MPV (test code = MPV) 8.1 7.4-10.4 [facility] CenterHyjrpzbJRZLURHKEU9605-88-42 12:21:00 Test Item Value Reference Range Interpretation Comments MCH (test code = MCH) 28.4 pg 27.0-31.0 [facility] CenterRazpeiyUHVBCLUQUE7836-08-86 12:21:00 Test Item Value Reference Range Interpretation Comments MCHC (test code = MCHC) 33.1 32.0-36.0 [facility] CenterVdfdvlaNQVBGQIXXX7947-45-86 12:21:00 Test Item Value Reference Range Interpretation Comments Platelet (test code = Platelet) 350 133-450 [facility] CenterGhqbemrZNATIXDPFT2362-83-33 12:21:00 Test Item Value Reference Range Interpretation Comments RDW (test code = RDW) 12.7 11.5-14.5 [facility] CenterBjgvpleGYKQXCLQDX0924-66-11 12:21:00 Test Item Value Reference Range Interpretation Comments MCV (test code = MCV) 85.8 80.0-98.0 [facility] CenterQyftojmBOTJPSGGDN6691-72-92 12:21:00 Test Item Value Reference Range Interpretation Comments Hgb (test code = Hgb) 11.9 12.0-16.0 [facility] CenterGmiuendWBSOSXXIEF1264-16-51 12:21:00 Test Item Value Reference Range Interpretation Comments Hct (test code = Hct) 35.8 36.0-48.0 [facility] CenterSzmmblaVFWRHNONSV6643-45-90 12:21:00 Test Item Value Reference Range Interpretation Comments RBC (test code = RBC) 4.18 4.20-5.40 [facility] CenterSdfzehiWSOQWKRPMU1741-96-10 12:21:00 Test Item Value Reference Range Interpretation Comments WBC (test code = WBC) 12.8 3.7-10.4 [facility]GuwxdsqYYRIFJVLTGKP8665-95-11 12:21:00 Test Item Value Reference Range Interpretation Comments AGAP (test code = AGAP) 8.5 10.0-20.0 [facility] HospitalPxaebdfKURLOUWLCSZX9377-25-49 12:21:00 Test Item Value Reference Range Interpretation Comments eGFR (test code = eGFR) 137 [facility] HospitalUlrvbvzCVYUGKPUAURM3095-93-26 12:21:00 Test Item Value Reference Range Interpretation Comments Creatinine Lvl (test code = Creatinine 0.54 0.50-1.40 Lvl) [facility] HospitalNrxgdqxKMTUUNWYZYPT7903-72-26 12:21:00 Test Item Value Reference Range Interpretation Comments CO2 (test code = CO2) 28 24-32 [facility] HospitalIvrezkbVVDWWMJJJYNH1915-96-86 12:21:00 Test Item Value Reference Range Interpretation Comments BUN (test code = BUN) 7 7-22 [facility] HospitalOkioddaGKWGYSIRJLZB9567-88-96 12:21:00 Test Item Value Reference Range Interpretation Comments Glucose Lvl (test code = Glucose Lvl) 118 70-99 [facility] HospitalQlxkqcxLDCMDNDMFUSR6683-23-83 12:21:00 Test Item Value Reference Range Interpretation Comments Potassium Lvl (test code = Potassium 3.5 3.5-5.1 Lvl) [facility] HospitalPjdimlfHDZTLYVDZOMK1334-44-63 12:21:00 Test Item Value Reference Range Interpretation Comments Sodium Lvl (test code = Sodium Lvl) 140 135-145 [facility] HospitalDrsdrdyPPSXZFYTUNXO4942-47-65 12:21:00 Test Item Value Reference Range Interpretation Comments Chloride Lvl (test code = Chloride Lvl) 107 95-109 [facility] HospitalGpsfzxtUGNOIKLEXSAG4065-04-46 12:21:00 Test Item Value Reference Range Interpretation Comments Calcium Lvl (test code = Calcium Lvl) 8.8 8.5-10.5 [facility] CenterAqccgtbNFIVTQOXMP9246-80-16 12:21:00 Test Item Value Reference Range Interpretation Comments Basophils (test code = 0.5 See_Comment [Aut omated message] The Basophils) system which ge nerated this result tra nsmitted reference range : <=1.0. The reference r krys was not used to int erpret this result as normal/abnormal . [facility] CenterAhymlutTOQSGQJNQY0007-81-12 12:21:00 Test Item Value Reference Range Interpretation Comments Monocytes (test code = Monocytes) 4.0 2.0-12.0 [facility] CenterDppflmrNGSFZFUGJB9678-93-02 12:21:00 Test Item Value Reference Range Interpretation Comments Lymphocytes # (test code = Lymphocytes 6.0 1.0-5.5 #) [facility] CenterKiiomidZQLTRBVSIW6923-17-97 12:21:00 Test Item Value Reference Range Interpretation Comments Monocytes # (test code 0.5 See_Comment [Aut omated message] The = Monocytes #) system which generated this result tra nsmitted reference range : <=0.8. The reference r krys was not used to int erpret this result as normal/abnormal . [facility] CenterVvpxvgwZKPTMCYCDY6496-81-44 12:21:00 Test Item Value Reference Range Interpretation Comments Eosinophils # (test code 0.2 See_Comment [A utomated message] The = Eosinophils #) system whic h generated this result tra nsmitted reference range : <=0.5. The reference r krys was not used to int erpret this result as normal/abnormal . [facility] CenterSddawczMQSWXJKHIZ0456-83-21 12:21:00 Test Item Value Reference Range Interpretation Comments Eosinophils (test code = 1.5 See_Comment [A utomated message] The Eosinophils) system which ge nerated this result tra nsmitted reference range : <=4.0. The reference r krys was not used to int erpret this result as normal/abnormal . [facility] CenterAsqffmhPBIHNOUGKU4046-78-72 12:21:00 Test Item Value Reference Range Interpretation Comments Neutrophils # (test code = Neutrophils 6.0 1.5-8.1 #) [facility] CenterGwnjzbeHSMTXROASN9262-36-98 12:21:00 Test Item Value Reference Range Interpretation Comments Basophils # (test code 0.1 See_Comment [Aut omated message] The = Basophils #) system which generated this result tra nsmitted reference range : <=0.2. The reference r krys was not used to int erpret this result as normal/abnormal . [facility] CenterNqxcbwtVTQKGYMRRK7257-42-24 12:21:00 Test Item Value Reference Range Interpretation Comments Segs (test code = Segs) 47.2 45.0-75.0 [facility] CenterCkhtnvbKIHTIFMJIX7141-20-77 12:21:00 Test Item Value Reference Range Interpretation Comments Lymphocytes (test code = Lymphocytes) 46.8 20.0-40.0 [facility] CenterMufkqvfYHGWDCQJRU0304-12-57 12:21:00 Test Item Value Reference Range Interpretation Comments MPV (test code = MPV) 8.1 7.4-10.4 [facility] CenterGxlodpcFOTIIOAXGP5163-11-82 12:21:00 Test Item Value Reference Range Interpretation Comments MCH (test code = MCH) 28.4 pg 27.0-31.0 [facility] CenterPlqyqryXPDFNYIVFQ8844-99-88 12:21:00 Test Item Value Reference Range Interpretation Comments MCHC (test code = MCHC) 33.1 32.0-36.0 [facility] CenterOxasklyBUHPNRAZTU9691-92-56 12:21:00 Test Item Value Reference Range Interpretation Comments Platelet (test code = Platelet) 350 133-450 [facility] CenterQlggkrgIJLXHGXZPJ7826-74-26 12:21:00 Test Item Value Reference Range Interpretation Comments RDW (test code = RDW) 12.7 11.5-14.5 [facility] CenterShdxelsFDHGDLSWMP3898-67-16 12:21:00 Test Item Value Reference Range Interpretation Comments MCV (test code = MCV) 85.8 80.0-98.0 [facility] CenterMgqvtqvIMJZQPVSFK5427-25-73 12:21:00 Test Item Value Reference Range Interpretation Comments Hgb (test code = Hgb) 11.9 12.0-16.0 [facility] CenterJufmpzoGXUGSECBDH0135-99-58 12:21:00 Test Item Value Reference Range Interpretation Comments Hct (test code = Hct) 35.8 36.0-48.0 [facility] CenterRlyputjXYDPHPVETM1152-36-44 12:21:00 Test Item Value Reference Range Interpretation Comments RBC (test code = RBC) 4.18 4.20-5.40 [facility] CenterUcnnnzbQWBNBEZIIT4628-70-20 12:21:00 Test Item Value Reference Range Interpretation Comments WBC (test code = WBC) 12.8 3.7-10.4 [facility]eb[facility]afXQFKRLGPHDKM2975[facility]14-60 12:21:00 Test Item Value Reference Range Interpretation Comments AGAP (test code = AGAP) 8.5 10.0-20.0 [facility]VplocnpVFHBACRYWKRY0562-75-81 12:21:00 Test Item Value Reference Range Interpretation Comments eGFR (test code = eGFR) 137 [facility]JnxropdLJBTVDVCIQVH3991-42-19 12:21:00 Test Item Value Reference Range Interpretation Comments Creatinine Lvl (test code = Creatinine 0.54 0.50-1.40 Lvl) [facility]EbpdrvvCDGINWVMVUFU1426-23-90 12:21:00 Test Item Value Reference Range Interpretation Comments CO2 (test code = CO2) 28 24-32 [facility]BqpkilwGTUQQGBHZLFK2101-21-93 12:21:00 Test Item Value Reference Range Interpretation Comments BUN (test code = BUN) 7 7-22 [facility]JwumqyaLIMQFXCNRUCM8141-22-93 12:21:00 Test Item Value Reference Range Interpretation Comments Glucose Lvl (test code = Glucose Lvl) 118 70-99 [facility] HospitalVyxzwqkIIUFMSXCQHVV0022-91-12 12:21:00 Test Item Value Reference Range Interpretation Comments Potassium Lvl (test code = Potassium 3.5 3.5-5.1 Lvl) [facility] HospitalHzzlvtwQDUNFJSVQJEL4670-10-96 12:21:00 Test Item Value Reference Range Interpretation Comments Sodium Lvl (test code = Sodium Lvl) 140 135-145 [facility] HospitalOtiowynCQFIKDWAFTGC1534-29-45 12:21:00 Test Item Value Reference Range Interpretation Comments Chloride Lvl (test code = Chloride Lvl) 107 95-109 [facility] HospitalEnowjryYLBZKROIGPEC0848-09-11 12:21:00 Test Item Value Reference Range Interpretation Comments Calcium Lvl (test code = Calcium Lvl) 8.8 8.5-10.5 [facility] CenterEouxcgcMXINXLXJPO8329-41-04 12:21:00 Test Item Value Reference Range Interpretation Comments Basophils (test code = 0.5 See_Comment [Aut omated message] The Basophils) system which ge nerated this result tra nsmitted reference range : <=1.0. The reference r krys was not used to int erpret this result as normal/abnormal . [facility] CenterNiaytzvYNPKNBMIFL9521-94-26 12:21:00 Test Item Value Reference Range Interpretation Comments Monocytes (test code = Monocytes) 4.0 2.0-12.0 [facility] CenterGrjitxpQNKCYUGLCL7167-22-78 12:21:00 Test Item Value Reference Range Interpretation Comments Lymphocytes # (test code = Lymphocytes 6.0 1.0-5.5 #) [facility] CenterZuehjdbMCQACGQHUX3942-73-78 12:21:00 Test Item Value Reference Range Interpretation Comments Monocytes # (test code 0.5 See_Comment [Aut omated message] The = Monocytes #) system which generated this result tra nsmitted reference range : <=0.8. The reference r krys was not used to int erpret this result as normal/abnormal . [facility] CenterKvfweypAYCHTKTGHO0830-55-67 12:21:00 Test Item Value Reference Range Interpretation Comments Eosinophils # (test code 0.2 See_Comment [A utomated message] The = Eosinophils #) system [facility] h generated this result tra nsmitted reference range : <=0.5. The reference r krys was not used to int erpret this result as normal/abnormal . [facility] CenterCuiqcnvLGTWDQQDTL7648-33-74 12:21:00 Test Item Value Reference Range Interpretation Comments Eosinophils (test code = 1.5 See_Comment [A utomated message] The Eosinophils) system which ge nerated this result tra nsmitted reference range : <=4.0. The reference r krys was not used to int erpret this result as normal/abnormal . [facility] CenterWfmlrydCXABWNJYEZ7459-81-98 12:21:00 Test Item Value Reference Range Interpretation Comments Neutrophils # (test code = Neutrophils 6.0 1.5-8.1 #) [facility] CenterYmlnijfCKWERKWMEE0718-25-56 12:21:00 Test Item Value Reference Range Interpretation Comments Basophils # (test code 0.1 See_Comment [Aut omated message] The = Basophils #) system which generated this result tra nsmitted reference range : <=0.2. The reference r krys was not used to int erpret this result as normal/abnormal . [facility] CenterNxhwgufFPLBPINKIC6883-54-20 12:21:00 Test Item Value Reference Range Interpretation Comments Segs (test code = Segs) 47.2 45.0-75.0 [facility] CenterKzdhmpyBGOBPZEEUQ7951-07-40 12:21:00 Test Item Value Reference Range Interpretation Comments Lymphocytes (test code = Lymphocytes) 46.8 20.0-40.0 [facility] CenterKsaksykLWQBFNRXHJ7347-94-22 12:21:00 Test Item Value Reference Range Interpretation Comments MPV (test code = MPV) 8.1 7.4-10.4 [facility] CenterPcapgzvSNXQZBPABV4529-67-71 12:21:00 Test Item Value Reference Range Interpretation Comments MCH (test code = MCH) 28.4 pg 27.0-31.0 [facility] CenterTowylauAMMIPJJZKC2228-81-22 12:21:00 Test Item Value Reference Range Interpretation Comments MCHC (test code = MCHC) 33.1 32.0-36.0 [facility] CenterRbrizwwRNMKEAVPVV5839-05-87 12:21:00 Test Item Value Reference Range Interpretation Comments Platelet (test code = Platelet) 350 133-450 [facility] CenterCuzbklnOQMJSFWFPM0643-15-21 12:21:00 Test Item Value Reference Range Interpretation Comments RDW (test code = RDW) 12.7 11.5-14.5 [facility] CenterPaiyebxDWQPYEQIIG0480-64-33 12:21:00 Test Item Value Reference Range Interpretation Comments MCV (test code = MCV) 85.8 80.0-98.0 [facility] CenterFcafuyjVVKRCCUCRE5657-82-22 12:21:00 Test Item Value Reference Range Interpretation Comments Hgb (test code = Hgb) 11.9 12.0-16.0 [facility] CenterXhagmgnDCQHVGIDLJ5006-35-50 12:21:00 Test Item Value Reference Range Interpretation Comments Hct (test code = Hct) 35.8 36.0-48.0 [facility] CenterTxnrebuJYBMCDJWHF5787-46-14 12:21:00 Test Item Value Reference Range Interpretation Comments RBC (test code = RBC) 4.18 4.20-5.40 [facility] CenterGuuefugLSKOVGVNHH9158-59-18 12:21:00 Test Item Value Reference Range Interpretation Comments WBC (test code = WBC) 12.8 3.7-10.4 [facility]2019-03-26 08:40:00 Test Item Value Reference Range Interpretation Comments eGFR (test code = eGFR) 137 [place] 553559-03-26 08:40:00 Test Item Value Reference Range Interpretation Comments Glucose Lvl (test code = Glucose Lvl) 196 70-99 [facility]2019-03-26 08:40:00 Test Item Value Reference Range Interpretation Comments BUN (test code = BUN) 8 7-22 [facility]2019-03-26 08:40:00 Test Item Value Reference Range Interpretation Comments Chloride Lvl (test code = Chloride Lvl) 106 95-109 [facility]2019-03-26 08:40:00 Test Item Value Reference Range Interpretation Comments Potassium Lvl (test code = Potassium 3.5 3.5-5.1 Lvl) [facility]2019-03-26 08:40:00 Test Item Value Reference Range Interpretation Comments Sodium Lvl (test code = Sodium Lvl) 138 135-145 [facility]2019-03-26 08:40:00 Test Item Value Reference Range Interpretation Comments Creatinine Lvl (test code = Creatinine 0.54 0.50-1.40 Lvl) [facility]2019-03-26 08:40:00 Test Item Value Reference Range Interpretation Comments Calcium Lvl (test code = Calcium Lvl) 8.5 8.5-10.5 [facility]2019-03-26 08:40:00 Test Item Value Reference Range Interpretation Comments CO2 (test code = CO2) 26 24-32 [facility]2019-03-26 08:40:00 Test Item Value Reference Range Interpretation Comments AGAP (test code = AGAP) 9.5 10.0-20.0 [facility] CenterXgklbbkHRVBLPFBCC9571-81-96 08:40:00 Test Item Value Reference Range Interpretation Comments Monocytes # (test code 0.7 See_Comment [Aut omated message] The = Monocytes #) system which generated this result tra nsmitted reference range : <=0.8. The reference r krys was not used to int erpret this result as normal/abnormal . [facility] CenterZmqdlshWMTUUQICPA8210-80-95 08:40:00 Test Item Value Reference Range Interpretation Comments Lymphocytes # (test code = Lymphocytes 4.9 1.0-5.5 #) [facility] CenterNcvnogxRQYZVNUSCU5743-49-19 08:40:00 Test Item Value Reference Range Interpretation Comments Segs (test code = Segs) 49.5 45.0-75.0 [facility] CenterYfiaakpYKLRANSFDV9895-84-28 08:40:00 Test Item Value Reference Range Interpretation Comments Lymphocytes (test code = Lymphocytes) 42.7 20.0-40.0 [facility] CenterXhetrzyGLFXQTPEVL1231-77-03 08:40:00 Test Item Value Reference Range Interpretation Comments Eosinophils # (test code 0.2 See_Comment [A utomated message] The = Eosinophils #) system wh h generated this result tra nsmitted reference range : <=0.5. The reference r krys was not used to int erpret this result as normal/abnormal . [facility] CenterFbnrnetGEWVVOZYZB6799-22-83 08:40:00 Test Item Value Reference Range Interpretation Comments Monocytes (test code = Monocytes) 5.8 2.0-12.0 [facility] CenterFrltozaPHKIJAXTAA6477-98-77 08:40:00 Test Item Value Reference Range Interpretation Comments Eosinophils (test code = 1.6 See_Comment [A utomated message] The Eosinophils) system which ge nerated this result tra nsmitted reference range : <=4.0. The reference r krys was not used to int erpret this result as normal/abnormal . [facility] CenterNttkrvqUMBJESHKDQ0670-85-83 08:40:00 Test Item Value Reference Range Interpretation Comments Neutrophils # (test code = Neutrophils 5.6 1.5-8.1 #) [facility] CenterFauyyqpSZPZOAWVGA4032-12-96 08:40:00 Test Item Value Reference Range Interpretation Comments Basophils (test code = 0.4 See_Comment [Aut omated message] The Basophils) system which ge nerated this result tra nsmitted reference range : <=1.0. The reference r krys was not used to int erpret this result as normal/abnormal . [facility] CenterFugbvwuDAQPQTFHYI3927-08-61 08:40:00 Test Item Value Reference Range Interpretation Comments RBC (test code = RBC) 3.44 4.20-5.40 [facility] CenterRcmgvyhDEADBPPIOS7597-81-16 08:40:00 Test Item Value Reference Range Interpretation Comments Hgb (test code = Hgb) 10.1 12.0-16.0 [facility] CenterKybiasfALKKVELOQY9873-10-56 08:40:00 Test Item Value Reference Range Interpretation Comments MPV (test code = MPV) 8.0 7.4-10.4 [facility] CenterChnwitdQUIAROPSFG1703-19-05 08:40:00 Test Item Value Reference Range Interpretation Comments Platelet (test code = Platelet) 333 133-450 [facility] CenterZlrudhiBKKOBOTRFB9110-12-73 08:40:00 Test Item Value Reference Range Interpretation Comments Hct (test code = Hct) 29.8 36.0-48.0 [facility] CenterGiwxjhcRWWNUYRXMA0620-76-54 08:40:00 Test Item Value Reference Range Interpretation Comments MCV (test code = MCV) 86.7 80.0-98.0 [facility] CenterPfsrzlvOUTUKLZQQP1476-87-62 08:40:00 Test Item Value Reference Range Interpretation Comments WBC (test code = WBC) 11.4 3.7-10.4 [facility] CenterZdweugoBXCTGYSSCV6328-66-15 08:40:00 Test Item Value Reference Range Interpretation Comments RDW (test code = RDW) 12.3 11.5-14.5 [facility] CenterVtcevioQEUTGIDIEP4443-50-15 08:40:00 Test Item Value Reference Range Interpretation Comments MCHC (test code = MCHC) 33.9 32.0-36.0 [facility] CenterMyxpirfSDHILAIKSW4879-75-34 08:40:00 Test Item Value Reference Range Interpretation Comments MCH (test code = MCH) 29.4 pg 27.0-31.0 [facility]2019-03-26 08:40:00 Test Item Value Reference Range Interpretation Comments eGFR (test code = eGFR) 137 [facility]2019-03-26 08:40:00 Test Item Value Reference Range Interpretation Comments Glucose Lvl (test code = Glucose Lvl) 196 70-99 [facility]2019-03-26 08:40:00 Test Item Value Reference Range Interpretation Comments BUN (test code = BUN) 8 7-22 [facility]2019-03-26 08:40:00 Test Item Value Reference Range Interpretation Comments Chloride Lvl (test code = Chloride Lvl) 106 95-109 [facility]2019-03-26 08:40:00 Test Item Value Reference Range Interpretation Comments Potassium Lvl (test code = Potassium 3.5 3.5-5.1 Lvl) [facility]2019-03-26 08:40:00 Test Item Value Reference Range Interpretation Comments Sodium Lvl (test code = Sodium Lvl) 138 135-145 [facility]2019-03-26 08:40:00 Test Item Value Reference Range Interpretation Comments Creatinine Lvl (test code = Creatinine 0.54 0.50-1.40 Lvl) [facility]2019-03-26 08:40:00 Test Item Value Reference Range Interpretation Comments Calcium Lvl (test code = Calcium Lvl) 8.5 8.5-10.5 [facility]2019-03-26 08:40:00 Test Item Value Reference Range Interpretation Comments CO2 (test code = CO2) 26 24-32 [facility]2019-03-26 08:40:00 Test Item Value Reference Range Interpretation Comments AGAP (test code = AGAP) 9.5 10.0-20.0 [facility] CenterJnjhxbkUVJEGSWOUJ4945-25-75 08:40:00 Test Item Value Reference Range Interpretation Comments Monocytes # (test code 0.7 See_Comment [Aut omated message] The = Monocytes #) system which generated this result tra nsmitted reference range : <=0.8. The reference r krys was not used to int erpret this result as normal/abnormal . [facility] CenterKymqtzmKSSSPPNIWB2433-52-03 08:40:00 Test Item Value Reference Range Interpretation Comments Lymphocytes # (test code = Lymphocytes 4.9 1.0-5.5 #) [facility] CenterJpfmsnvMIUBMUUEBJ9949-02-21 08:40:00 Test Item Value Reference Range Interpretation Comments Segs (test code = Segs) 49.5 45.0-75.0 [facility] CenterKfgjxkmKBSPDSKOSZ9175-25-75 08:40:00 Test Item Value Reference Range Interpretation Comments Lymphocytes (test code = Lymphocytes) 42.7 20.0-40.0 [facility] CenterIuajasoSQOJJYVOUJ5043-51-80 08:40:00 Test Item Value Reference Range Interpretation Comments Eosinophils # (test code 0.2 See_Comment [A utomated message] The = Eosinophils #) system whic h generated this result tra nsmitted reference range : <=0.5. The reference r krys was not used to int erpret this result as normal/abnormal . [facility] CenterPttarlhCRABPUWMRH6134-78-77 08:40:00 Test Item Value Reference Range Interpretation Comments Monocytes (test code = Monocytes) 5.8 2.0-12.0 [facility] CenterPvpejmtIQRLVIUJPY9265-74-53 08:40:00 Test Item Value Reference Range Interpretation Comments Eosinophils (test code = 1.6 See_Comment [A utomated message] The Eosinophils) system which ge nerated this result tra nsmitted reference range : <=4.0. The reference r krys was not used to int erpret this result as normal/abnormal . [facility] CenterKuuuaiaQQUMAQAWSD6141-39-94 08:40:00 Test Item Value Reference Range Interpretation Comments Neutrophils # (test code = Neutrophils 5.6 1.5-8.1 #) [facility] CenterBzkyzeqBVRJPYTPEP7448-94-21 08:40:00 Test Item Value Reference Range Interpretation Comments Basophils (test code = 0.4 See_Comment [Aut omated message] The Basophils) system which ge nerated this result tra nsmitted reference range : <=1.0. The reference r krys was not used to int erpret this result as normal/abnormal . [facility] CenterOtwdrwuHZZABYZNQT3067-01-37 08:40:00 Test Item Value Reference Range Interpretation Comments RBC (test code = RBC) 3.44 4.20-5.40 [facility] CenterBffzovdKSYAZXSIBK3718-89-73 08:40:00 Test Item Value Reference Range Interpretation Comments Hgb (test code = Hgb) 10.1 12.0-16.0 [facility] CenterKntobydVVFNLYFBNK1201-09-22 08:40:00 Test Item Value Reference Range Interpretation Comments MPV (test code = MPV) 8.0 7.4-10.4 [facility] CenterXgpdnqdRQJXQSEPLB2761-29-28 08:40:00 Test Item Value Reference Range Interpretation Comments Platelet (test code = Platelet) 333 133-450 [facility] CenterWmkkmjlNHEYYGFDUR7974-30-76 08:40:00 Test Item Value Reference Range Interpretation Comments Hct (test code = Hct) 29.8 36.0-48.0 [place] 160409-03-26 08:40:00 Test Item Value Reference Range Interpretation Comments MCV (test code = MCV) 86.7 80.0-98.0 [facility] CenterQtgnpkcVZKDPWYNVT5742-10-20 08:40:00 Test Item Value Reference Range Interpretation Comments WBC (test code = WBC) 11.4 3.7-10.4 [facility] CenterIoxjloaCFYQDEVOLZ4095-37-47 08:40:00 Test Item Value Reference Range Interpretation Comments RDW (test code = RDW) 12.3 11.5-14.5 [facility] CenterFgwktvxAASQKNJVMK8700-84-24 08:40:00 Test Item Value Reference Range Interpretation Comments MCHC (test code = MCHC) 33.9 32.0-36.0 [facility] CenterAcuagljTAPSKVEJQW6141-50-88 08:40:00 Test Item Value Reference Range Interpretation Comments MCH (test code = MCH) 29.4 pg 27.0-31.0 [facility]2019-03-26 08:40:00 Test Item Value Reference Range Interpretation Comments eGFR (test code = eGFR) 137 [facility]2019-03-26 08:40:00 Test Item Value Reference Range Interpretation Comments Glucose Lvl (test code = Glucose Lvl) 196 70-99 [facility]2019-03-26 08:40:00 Test Item Value Reference Range Interpretation Comments BUN (test code = BUN) 8 7-22 [facility]2019-03-26 08:40:00 Test Item Value Reference Range Interpretation Comments Chloride Lvl (test code = Chloride Lvl) 106 95-109 [facility]2019-03-26 08:40:00 Test Item Value Reference Range Interpretation Comments Potassium Lvl (test code = Potassium 3.5 3.5-5.1 Lvl) [facility]2019-03-26 08:40:00 Test Item Value Reference Range Interpretation Comments Sodium Lvl (test code = Sodium Lvl) 138 135-145 [facility]2019-03-26 08:40:00 Test Item Value Reference Range Interpretation Comments Creatinine Lvl (test code = Creatinine 0.54 0.50-1.40 Lvl) [facility]2019-03-26 08:40:00 Test Item Value Reference Range Interpretation Comments Calcium Lvl (test code = Calcium Lvl) 8.5 8.5-10.5 [facility]2019-03-26 08:40:00 Test Item Value Reference Range Interpretation Comments CO2 (test code = CO2) 26 24-32 [facility]2019-03-26 08:40:00 Test Item Value Reference Range Interpretation Comments AGAP (test code = AGAP) 9.5 10.0-20.0 [facility] CenterKbbrhxaKXPBPORJMI5176-18-10 08:40:00 Test Item Value Reference Range Interpretation Comments Monocytes # (test code 0.7 See_Comment [Aut omated message] The = Monocytes #) system which generated this result tra nsmitted reference range : <=0.8. The reference r krys was not used to int erpret this result as normal/abnormal . [facility] CenterDxhlunoTBQCNOAEMF5331-12-98 08:40:00 Test Item Value Reference Range Interpretation Comments Lymphocytes # (test code = Lymphocytes 4.9 1.0-5.5 #) [facility] CenterLpoqhalWNHAAKUUVR7745-59-55 08:40:00 Test Item Value Reference Range Interpretation Comments Segs (test code = Segs) 49.5 45.0-75.0 [facility] CenterPforjohWQMIQUTOIM9263-58-19 08:40:00 Test Item Value Reference Range Interpretation Comments Lymphocytes (test code = Lymphocytes) 42.7 20.0-40.0 [facility] CenterOoxxtzuGIBHTOYDIR3419-31-98 08:40:00 Test Item Value Reference Range Interpretation Comments Eosinophils # (test code 0.2 See_Comment [A utomated message] The = Eosinophils #) system whic h generated this result tra nsmitted reference range : <=0.5. The reference r krys was not used to int erpret this result as normal/abnormal . [facility] CenterKrofcliLCGFLYJTCF7821-73-18 08:40:00 Test Item Value Reference Range Interpretation Comments Monocytes (test code = Monocytes) 5.8 2.0-12.0 [facility] CenterXbjlmzwKKUNWZUNPJ5512-87-55 08:40:00 Test Item Value Reference Range Interpretation Comments Eosinophils (test code = 1.6 See_Comment [A utomated message] The Eosinophils) system which ge nerated this result tra nsmitted reference range : <=4.0. The reference r krys was not used to int erpret this result as normal/abnormal . [facility] CenterFhadjgiVTLJXGZFPY3220-78-71 08:40:00 Test Item Value Reference Range Interpretation Comments Neutrophils # (test code = Neutrophils 5.6 1.5-8.1 #) [facility] CenterKulcniyQIIQFIZVCA9819-76-92 08:40:00 Test Item Value Reference Range Interpretation Comments Basophils (test code = 0.4 See_Comment [Aut omated message] The Basophils) system which ge nerated this result tra nsmitted reference range : <=1.0. The reference r krys was not used to int erpret this result as normal/abnormal . [facility] CenterGpmiomoFEKBZNDPFT1773-36-94 08:40:00 Test Item Value Reference Range Interpretation Comments RBC (test code = RBC) 3.44 4.20-5.40 [facility] CenterCtzmwawXHTLKFLRSK3780-13-12 08:40:00 Test Item Value Reference Range Interpretation Comments Hgb (test code = Hgb) 10.1 12.0-16.0 [facility] CenterCtrwvinCBJPXQSUIG2915-64-16 08:40:00 Test Item Value Reference Range Interpretation Comments MPV (test code = MPV) 8.0 7.4-10.4 [facility] CenterBdyrncxCERLAPVZCC9932-87-21 08:40:00 Test Item Value Reference Range Interpretation Comments Platelet (test code = Platelet) 333 133-450 [facility] CenterNrlsowdQZCARYADKL1212-87-05 08:40:00 Test Item Value Reference Range Interpretation Comments Hct (test code = Hct) 29.8 36.0-48.0 [facility] CenterQgclcrgSCGUFAHMPN6421-50-55 08:40:00 Test Item Value Reference Range Interpretation Comments MCV (test code = MCV) 86.7 80.0-98.0 [facility] CenterBqdhgjxYZFKDBMCKS0364-05-75 08:40:00 Test Item Value Reference Range Interpretation Comments WBC (test code = WBC) 11.4 3.7-10.4 [facility] CenterRogadeyXMSSUVKGLS4149-51-73 08:40:00 Test Item Value Reference Range Interpretation Comments RDW (test code = RDW) 12.3 11.5-14.5 [place] 160409-03-26 08:40:00 Test Item Value Reference Range Interpretation Comments MCHC (test code = MCHC) 33.9 32.0-36.0 [facility] CenterBfdgfupBSKGIBQJRW3124-74-35 08:40:00 Test Item Value Reference Range Interpretation Comments MCH (test code = MCH) 29.4 pg 27.0-31.0 [facility]2019-03-25 09:39:00 Test Item Value Reference Range Interpretation Comments eGFR (test code = eGFR) 131 [facility]2019-03-25 09:39:00 Test Item Value Reference Range Interpretation Comments Creatinine Lvl (test code = Creatinine 0.63 0.50-1.40 Lvl) [facility]2019-03-25 09:39:00 Test Item Value Reference Range Interpretation Comments Sodium Lvl (test code = Sodium Lvl) 141 135-145 [facility]2019-03-25 09:39:00 Test Item Value Reference Range Interpretation Comments Glucose Lvl (test code = Glucose Lvl) 210 70-99 [facility]2019-03-25 09:39:00 Test Item Value Reference Range Interpretation Comments BUN (test code = BUN) 11 7-22 [facility]2019-03-25 09:39:00 Test Item Value Reference Range Interpretation Comments Chloride Lvl (test code = Chloride Lvl) 108 95-109 [facility]2019-03-25 09:39:00 Test Item Value Reference Range Interpretation Comments Calcium Lvl (test code = Calcium Lvl) 7.9 8.5-10.5 [facility]2019-03-25 09:39:00 Test Item Value Reference Range Interpretation Comments Potassium Lvl (test code = Potassium 3.8 3.5-5.1 Lvl) [facility]2019-03-25 09:39:00 Test Item Value Reference Range Interpretation Comments CO2 (test code = CO2) 26 24-32 [facility]2019-03-25 09:39:00 Test Item Value Reference Range Interpretation Comments AGAP (test code = AGAP) 10.8 10.0-20.0 [facility]2019-03-25 09:39:00 Test Item Value Reference Range Interpretation Comments eGFR (test code = eGFR) 131 [facility]2019-03-25 09:39:00 Test Item Value Reference Range Interpretation Comments Creatinine Lvl (test code = Creatinine 0.63 0.50-1.40 Lvl) [facility]2019-03-25 09:39:00 Test Item Value Reference Range Interpretation Comments Sodium Lvl (test code = Sodium Lvl) 141 135-145 [facility]2019-03-25 09:39:00 Test Item Value Reference Range Interpretation Comments Glucose Lvl (test code = Glucose Lvl) 210 70 [facility]2019-03-25 09:39:00 Test Item Value Reference Range Interpretation Comments BUN (test code = BUN) 10-21 [facility]2019-03-25 09:39:00 Test Item Value Reference Range Interpretation Comments Chloride Lvl (test code = Chloride Lvl) 108 95-109 [facility]2019-03-25 09:39:00 Test Item Value Reference Range Interpretation Comments Calcium Lvl (test code = Calcium Lvl) 7.9 8.5-10.5 [facility]2019-03-25 09:39:00 Test Item Value Reference Range Interpretation Comments Potassium Lvl (test code = Potassium 3.8 3.5-5.1 Lvl) [facility]2019-03-25 09:39:00 Test Item Value Reference Range Interpretation Comments CO2 (test code = CO2) 26 24-32 [facility]2019-03-25 09:39:00 Test Item Value Reference Range Interpretation Comments AGAP (test code = AGAP) 10.8 10.0-20.0 [facility]2019-03-25 09:39:00 Test Item Value Reference Range Interpretation Comments eGFR (test code = eGFR) 131 [facility]2019-03-25 09:39:00 Test Item Value Reference Range Interpretation Comments Creatinine Lvl (test code = Creatinine 0.63 0.50-1.40 Lvl) [facility]2019-03-25 09:39:00 Test Item Value Reference Range Interpretation Comments Sodium Lvl (test code = Sodium Lvl) 141 135-145 [facility]2019-03-25 09:39:00 Test Item Value Reference Range Interpretation Comments Glucose Lvl (test code = Glucose Lvl) 210 70 [facility]2019-03-25 09:39:00 Test Item Value Reference Range Interpretation Comments BUN (test code = BUN) 10-21 [facility]2019-03-25 09:39:00 Test Item Value Reference Range Interpretation Comments Chloride Lvl (test code = Chloride Lvl) 108 95-109 [facility]annCHEM [id number] 09:39:00 Test Item Value Reference Range Interpretation Comments Calcium Lvl (test code = Calcium Lvl) 7.9 8.5-10.5 [facility]annCHEM CHJDC2678-09-16 09:39:00 Test Item Value Reference Range Interpretation Comments Potassium Lvl (test code = Potassium 3.8 3.5-5.1 Lvl) [facility]annCHE[facility] SQWOK1398-94-94 09:39:00 Test Item Value Reference Range Interpretation Comments CO2 (test code = CO2) 26 24-32 [facility]annCHE[facility] PFDJO9951-46-03 09:39:00 Test Item Value Reference Range Interpretation Comments AGAP (test code = AGAP) 10.8 10.0-20.0 [facility] CenterWuljzioZJMPXJXQVQ3193-49-82 18:37:00 Test Item Value Reference Range Interpretation Comments Vanco Tr TND (test code = Vanco Tr 1230 1 TND) [facility] CenterYgjipsvTGDHZDXSRW7906-46-54 18:37:00 Test Item Value Reference Range Interpretation Comments Vanco Tr (test code = Vanco Tr) 17.7 [facility] CenterPmycelgWQSEJNAAFI8154-09-97 18:37:00 Test Item Value Reference Range Interpretation Comments Vanco Tr TND (test code = Vanco Tr 1230 1 TND) [facility] CenterXyxtjyxPDSZCUTOUO2856-06-58 18:37:00 Test Item Value Reference Range Interpretation Comments Vanco Tr (test code = Vanco Tr) 17.7 [facility] CenterBgoaspzUCLDTHKOPJ5519-06-08 18:37:00 Test Item Value Reference Range Interpretation Comments Vanco Tr TND (test code = Vanco Tr 1230 1 TND) [facility] CenterMgtthfrNDWKRMBZDM0554-63-52 18:37:00 Test Item Value Reference Range Interpretation Comments Vanco Tr (test code = Vanco Tr) 17.7 [facility] CenterMvzbhvvHKYDIZMQRQ3603-25-02 11:50:00 Test Item Value Reference Range Interpretation Comments Vanco Tr (test code = Vanco Tr) 20.4 [facility] CenterCtiffifFCFSUZMCYH7987-30-47 11:50:00 Test Item Value Reference Range Interpretation Comments Vanco Tr TND (test code = Vanco Tr 2030 1 TND) [facility]GxtyxmsTKMNAJWIOY2307-08-54 11:50:00 Test Item Value Reference Range Interpretation Comments Vanco Tr (test code = Vanco Tr) 20.4 [facility] CenterNpcmdygUPIXHDVLUT6103-15-17 11:50:00 Test Item Value Reference Range Interpretation Comments Vanco Tr TND (test code = Vanco Tr 2030 1 TND) [facility]OimszdvRZMUEWEHZF5492-93-75 11:50:00 Test Item Value Reference Range Interpretation Comments Vanco Tr (test code = Vanco Tr) 20.4 [facility]IjcxrlrNHVZKWDTKZ2780-48-39 11:50:00 Test Item Value Reference Range Interpretation Comments Vanco Tr TND (test code = Vanco Tr 2030 1 TND) [facility] CenterGcyahpjCZBNDTNMFD0637-52-73 10:21:00 Test Item Value Reference Range Interpretation Comments RDW (test code = RDW) 12.5 11.5-14.5 [facility] CenterDmheuleNASNMWGFJH8354-87-51 10:21:00 Test Item Value Reference Range Interpretation Comments MPV (test code = MPV) 8.3 7.4-10.4 [facility] CenterSzrfszlFZQSVQOGKR4679-75-44 10:21:00 Test Item Value Reference Range Interpretation Comments Platelet (test code = Platelet) 321 225-450 [facility] CenterFdkmyfpPRSXSNUTHK2732-95-69 10:21:00 Test Item Value Reference Range Interpretation Comments MCV (test code = MCV) 86.7 80.0-98.0 [facility] CenterHipmftuNOMJWXXZGF5203-42-60 10:21:00 Test Item Value Reference Range Interpretation Comments MCH (test code = MCH) 29.0 pg 27.0-31.0 [facility] CenterYngzrkdQQUQMVHVAZ5128-26-06 10:21:00 Test Item Value Reference Range Interpretation Comments MCHC (test code = MCHC) 33.5 32.0-36.0 [facility] CenterGoipfivUHDSGWQXUP9315-50-24 10:21:00 Test Item Value Reference Range Interpretation Comments Hct (test code = Hct) 30.1 36.0-48.0 [facility] CenterFaphcjaGALCCQBUMS7559-19-31 10:21:00 Test Item Value Reference Range Interpretation Comments RBC (test code = RBC) 3.47 4.20-5.40 [facility] CenterObrzzudEIMSDHTWCL1384-94-83 10:21:00 Test Item Value Reference Range Interpretation Comments Hgb (test code = Hgb) 10.1 12.0-16.0 [facility] CenterBuyrvjgLNPARMHJHY9808-00-58 10:21:00 Test Item Value Reference Range Interpretation Comments WBC (test code = WBC) 11.9 3.7-10.4 [facility] CenterKcbgkjsAPZUXMGFSO2436-10-46 10:21:00 Test Item Value Reference Range Interpretation Comments Eosinophils # (test code 0.1 See_Comment [A utomated message] The = Eosinophils #) system whic h generated this result tra nsmitted reference range : <=0.5. The reference r krys was not used to int erpret this result as normal/abnormal . [facility] CenterFilimgsHXZDRULVFR4920-08-03 10:21:00 Test Item Value Reference Range Interpretation Comments Monocytes # (test code 0.7 See_Comment [Aut omated message] The = Monocytes #) system which generated this result tra nsmitted reference range : <=0.8. The reference r krys was not used to int erpret this result as normal/abnormal . [facility] CenterLnuvlisAKCUKINPOX3340-42-47 10:21:00 Test Item Value Reference Range Interpretation Comments Neutrophils # (test code = Neutrophils 7.0 1.5-8.1 #) [facility] CenterHkvkwjkNZMRRYNBBJ5566-34-70 10:21:00 Test Item Value Reference Range Interpretation Comments Lymphocytes # (test code = Lymphocytes 4.1 1.0-5.5 #) [facility] CenterPfarpxjGWJRSZVTZF7171-99-75 10:21:00 Test Item Value Reference Range Interpretation Comments Segs (test code = Segs) 59.1 45.0-75.0 [facility] CenterYueqrspURXRJICAHD8620-62-98 10:21:00 Test Item Value Reference Range Interpretation Comments Lymphocytes (test code = Lymphocytes) 34.4 20.0-40.0 [facility] CenterAutvoxoQHXNYIAONW8034-34-55 10:21:00 Test Item Value Reference Range Interpretation Comments Monocytes (test code = Monocytes) 5.7 2.0-12.0 [facility] CenterEqjdolmQKZAHVRDUG2983-59-24 10:21:00 Test Item Value Reference Range Interpretation Comments Eosinophils (test code = 0.6 See_Comment [A utomated message] The Eosinophils) system which ge nerated this result tra nsmitted reference range : <=4.0. The reference r krys was not used to int erpret this result as normal/abnormal . [facility] CenterAqqowuuDUPPZLBMHW1767-97-72 10:21:00 Test Item Value Reference Range Interpretation Comments Basophils (test code = 0.2 See_Comment [Aut omated message] The Basophils) system which ge nerated this result tra nsmitted reference range : <=1.0. The reference r krys was not used to int erpret this result as normal/abnormal . [facility] CenterLownidsXOMULRMNXP1343-31-01 10:21:00 Test Item Value Reference Range Interpretation Comments RDW (test code = RDW) 12.5 11.5-14.5 [facility] CenterLobjejhLBAANSASKE9410-00-97 10:21:00 Test Item Value Reference Range Interpretation Comments MPV (test code = MPV) 8.3 7.4-10.4 [facility] CenterXlhutaxXWVJQVXPJU5640-94-72 10:21:00 Test Item Value Reference Range Interpretation Comments Platelet (test code = Platelet) 321 133-450 [facility] CenterJfszltuPGRAAVLWTV4556-23-95 10:21:00 Test Item Value Reference Range Interpretation Comments MCV (test code = MCV) 86.7 80.0-98.0 [facility] CenterSwpzzfjZBVDCQEATZ1209-82-32 10:21:00 Test Item Value Reference Range Interpretation Comments MCH (test code = MCH) 29.0 pg 27.0-31.0 [facility] CenterNjvmupmAHXWHWENLA7867-20-81 10:21:00 Test Item Value Reference Range Interpretation Comments MCHC (test code = MCHC) 33.5 32.0-36.0 [facility] CenterRpasrypAMQWWTSKYV8845-80-04 10:21:00 Test Item Value Reference Range Interpretation Comments Hct (test code = Hct) 30.1 36.0-48.0 [facility] CenterRtvhruuQWLKNHEJEM2412-86-52 10:21:00 Test Item Value Reference Range Interpretation Comments RBC (test code = RBC) 3.47 4.20-5.40 [facility] CenterVgtasoqTHGRTMMMWX1606-92-79 10:21:00 Test Item Value Reference Range Interpretation Comments Hgb (test code = Hgb) 10.1 12.0-16.0 [facility] CenterAzcevhtPAMJYGYHDF9350-94-66 10:21:00 Test Item Value Reference Range Interpretation Comments WBC (test code = WBC) 11.9 3.7-10.4 [facility] CenterRckecgwVYQLYSRBFI1903-00-93 10:21:00 Test Item Value Reference Range Interpretation Comments Eosinophils # (test code 0.1 See_Comment [A utomated message] The = Eosinophils #) system whic h generated this result tra nsmitted reference range : <=0.5. The reference r krys was not used to int erpret this result as normal/abnormal . [facility] CenterHzlksjlKQXJWMMXIY0898-99-93 10:21:00 Test Item Value Reference Range Interpretation Comments Monocytes # (test code 0.7 See_Comment [Aut omated message] The = Monocytes #) system which generated this result tra nsmitted reference range : <=0.8. The reference r krys was not used to int erpret this result as normal/abnormal . [facility] CenterLbbralkVZNHWWHNTY8779-50-04 10:21:00 Test Item Value Reference Range Interpretation Comments Neutrophils # (test code = Neutrophils 7.0 1.5-8.1 #) [facility] CenterLkdmwklVVBRMHORKL3477-52-52 10:21:00 Test Item Value Reference Range Interpretation Comments Lymphocytes # (test code = Lymphocytes 4.1 1.0-5.5 #) [facility] CenterHbvwinjIPAGNHWIOS9077-43-17 10:21:00 Test Item Value Reference Range Interpretation Comments Segs (test code = Segs) 59.1 45.0-75.0 [facility] CenterPctisbnJHWPFTSVVT0170-02-61 10:21:00 Test Item Value Reference Range Interpretation Comments Lymphocytes (test code = Lymphocytes) 34.4 20.0-40.0 [facility] CenterWyxcemeBFDRIPUALZ6062-60-92 10:21:00 Test Item Value Reference Range Interpretation Comments Monocytes (test code = Monocytes) 5.7 2.0-12.0 [facility] CenterQziaigrPOHTJMGETZ2410-95-22 10:21:00 Test Item Value Reference Range Interpretation Comments Eosinophils (test code = 0.6 See_Comment [A utomated message] The Eosinophils) system which ge nerated this result tra nsmitted reference range : <=4.0. The reference r krys was not used to int erpret this result as normal/abnormal . [facility] CenterRhzmzfqXEXVSEZLMZ1235-87-17 10:21:00 Test Item Value Reference Range Interpretation Comments Basophils (test code = 0.2 See_Comment [Aut omated message] The Basophils) system which ge nerated this result tra nsmitted reference range : <=1.0. The reference r krys was not used to int erpret this result as normal/abnormal . [facility] CenterFoklhknUFWJDVJPSR4265-28-79 10:21:00 Test Item Value Reference Range Interpretation Comments RDW (test code = RDW) 12.5 11.5-14.5 [facility] CenterQgyiwwgLPQHKFVNQF2137-84-59 10:21:00 Test Item Value Reference Range Interpretation Comments MPV (test code = MPV) 8.3 7.4-10.4 [facility] CenterDuwmptmFIASSFSTVS2056-53-98 10:21:00 Test Item Value Reference Range Interpretation Comments Platelet (test code = Platelet) 321 133-450 [facility] CenterFncyhvsMADKRLRFLB9267-12-00 10:21:00 Test Item Value Reference Range Interpretation Comments MCV (test code = MCV) 86.7 80.0-98.0 [facility] CenterQxsxhvcRRADFBAGUG3164-00-31 10:21:00 Test Item Value Reference Range Interpretation Comments MCH (test code = MCH) 29.0 pg 27.0-31.0 [facility] CenterQimhdvmXFDJPGRHAB3210-53-61 10:21:00 Test Item Value Reference Range Interpretation Comments MCHC (test code = MCHC) 33.5 32.0-36.0 [facility] CenterSeebgukZHRUCSLTBX1881-50-88 10:21:00 Test Item Value Reference Range Interpretation Comments Hct (test code = Hct) 30.1 36.0-48.0 [facility] CenterLynffalUYFXDWLKGZ1901-12-97 10:21:00 Test Item Value Reference Range Interpretation Comments RBC (test code = RBC) 3.47 4.20-5.40 [facility] CenterAwusrgjTHZOCZKBDF7242-30-72 10:21:00 Test Item Value Reference Range Interpretation Comments Hgb (test code = Hgb) 10.1 12.0-16.0 [facility] CenterYnimuqiQHQZVZCDIE9329-83-42 10:21:00 Test Item Value Reference Range Interpretation Comments WBC (test code = WBC) 11.9 3.7-10.4 [facility] CenterPgmvcxnTWEZHTUXQQ8590-75-34 10:21:00 Test Item Value Reference Range Interpretation Comments Eosinophils # (test code 0.1 See_Comment [A utomated message] The = Eosinophils #) system whic h generated this result tra nsmitted reference range : <=0.5. The reference r krys was not used to int erpret this result as normal/abnormal . [facility] CenterJsjirihYEINWCSEHI7041-08-26 10:21:00 Test Item Value Reference Range Interpretation Comments Monocytes # (test code 0.7 See_Comment [Aut omated message] The = Monocytes #) system which generated this result tra nsmitted reference range : <=0.8. The reference r krys was not used to int erpret this result as normal/abnormal . [facility] CenterRuwiksxNQWICFIOWI9543-87-45 10:21:00 Test Item Value Reference Range Interpretation Comments Neutrophils # (test code = Neutrophils 7.0 1.5-8.1 #) [facility] CenterMxgpkheRGIYAAIFWS5314-31-85 10:21:00 Test Item Value Reference Range Interpretation Comments Lymphocytes # (test code = Lymphocytes 4.1 1.0-5.5 #) [facility] CenterTmmhymrASXMGQRQIP1494-22-30 10:21:00 Test Item Value Reference Range Interpretation Comments Segs (test code = Segs) 59.1 45.0-75.0 [facility] CenterVyqkoizEFJWRVVVXA0993-96-25 10:21:00 Test Item Value Reference Range Interpretation Comments Lymphocytes (test code = Lymphocytes) 34.4 20.0-40.0 [facility] CenterLzwxgphUHXSKANEDC1185-96-39 10:21:00 Test Item Value Reference Range Interpretation Comments Monocytes (test code = Monocytes) 5.7 2.0-12.0 [facility] CenterNpopjcsCFRIZOWMSU3274-05-67 10:21:00 Test Item Value Reference Range Interpretation Comments Eosinophils (test code = 0.6 See_Comment [A utomated message] The Eosinophils) system which ge nerated this result tra nsmitted reference range : <=4.0. The reference r krys was not used to int erpret this result as normal/abnormal . [facility] CenterSrqielpFWWLSJTPTE5583-29-12 10:21:00 Test Item Value Reference Range Interpretation Comments Basophils (test code = 0.2 See_Comment [Aut omated message] The Basophils) system which ge nerated this result tra nsmitted reference range : <=1.0. The reference r krys was not used to int erpret this result as normal/abnormal . [facility] Jgawallnf6103-22-29 04:41:00 Test Item Value Reference Range Interpretation Comments Culture: Anaerobic No Anaerobes Isolated (test code = Culture: Anaerobic) [facility] CenterannGram Stain Zxhzvj6089-37-20 04:41:00 Test Item Value Reference Range Interpretation Comments Gram Stain Report Gram Stain Performed By: (test code = [facility] [place] Stain Report) [facility]annCulture: Aspirate/Body Fluid/Pgodkh9279-64-60 04:41:00 Test Item Value Reference Range Interpretation Comments Culture: Aspirate/Body Fluid/Tissue No Growth (test code = Culture: Aspirate/Body Fluid/Tissue) [facility]annCulture: Vksjjforw9305-79-96 04:41:00 Test Item Value Reference Range Interpretation Comments Culture: Anaerobic No Anaerobes Isolated (test code = Culture: Anaerobic) [facility] CenterannGram Stain Ocqhej5936-60-93 04:41:00 Test Item Value Reference Range Interpretation Comments Gram Stain Report Gram Stain Performed By: (test code = [facility] [place] St[facility]) [facility] CenterCulture: Aspirate/Body Fluid/Closjg7954-40-46 04:41:00 Test Item Value Reference Range Interpretation Comments Culture: Aspirate/Body Fluid/Tissue No Growth (test code = Culture: Aspirate/Body Fluid/Tissue) [facility] HospitalCulture: Rwexkxxwj0599-95-42 04:41:00 Test Item Value Reference Range Interpretation Comments Culture: Anaerobic No Anaerobes Isolated (test code = Culture: Anaerobic) [facility] CenterannGram Stain Orngky0335-24-88 04:41:00 Test Item Value Reference Range Interpretation Comments Gram Stain Report Gram Stain Performed By: (test code = [facility] [place] Stain [facility]) [facility] CenterCulture: Aspirate/Body Fluid/Gwwhxw2815-32-04 04:41:00 Test Item Value Reference Range Interpretation Comments Culture: Aspirate/Body Fluid/Tissue No Growth (test code = Culture: Aspirate/Body Fluid/Tissue) [facility] CenterGzxkersBRJJALGSMZ9168-12-83 08:56:00 Test Item Value Reference Range Interpretation Comments Sed Rate (test code = 98 See_Comment [Auto mated message] The Sed Rate) system which ge nerated this result transmit yury reference range : <=20. The reference range was not used to interpr et this result as marlys l/abnormal. [facility] [place] [facility] CenterYbepcweAPGZHSCLQK6155-24-34 08:56:00 Test Item Value Reference Range Interpretation Comments C-REACTIVE PROTEIN (test code = 73.4 C-REACTIVE PROTEIN) [facility] CenterHdudaliMLGOPIMSXD4007-95-99 08:56:00 Test Item Value Reference Range Interpretation Comments Sed Rate (test code = 98 See_Comment [Auto mated message] The Sed Rate) system which ge nerated this result transmit yury reference range : <=20. The reference range was not used to interpr et this result as marlys l/abnormal. [facility] CenterJfjsrrgIPMNXKEJSM9668-83-81 08:56:00 Test Item Value Reference Range Interpretation Comments C-REACTIVE PROTEIN (test code = 73.4 C-REACTIVE PROTEIN) [facility] CenterRmfhbqoFOJDFJXBPC7517-22-46 08:56:00 Test Item Value Reference Range Interpretation Comments Sed Rate (test code = 98 See_Comment [Auto mated message] The Sed Rate) system which ge nerated this result transmit yury reference range : <=20. The reference range was not used to interpr et this result as marlys l/abnormal. [facility] [place] [facility] CenterZdircsbZNHJJDUWFF9455-35-67 08:56:00 Test Item Value Reference Range Interpretation Comments C-REACTIVE PROTEIN (test code = 73.4 C-REACTIVE PROTEIN) [facility]LligtatUQRJKBQQCV9624-48-66 07:22:00 Test Item Value Reference Range Interpretation Comments Vanco Tr (test code = Vanco Tr) 4.3 [facility] CenterVvobypzRLVKCBGKSD7331-93-44 07:22:00 Test Item Value Reference Range Interpretation Comments Vanco Tr TND (test code = Vanco Tr 0230 1 TND) [facility] HospitalDzrljjdOXVBDSVGES5211-55-47 07:22:00 Test Item Value Reference Range Interpretation Comments Vanco Tr (test code = Vanco Tr) 4.3 [facility] [id number] 07:22:00 Test Item Value Reference Range Interpretation Comments Vanco Tr TND (test code = Vanco Tr 0230 1 TND) [id number] 07:22:00 Test Item Value Reference Range Interpretation Comments Vanco Tr (test code = Vanco Tr) 4.3 [facility] CenterZrqreyiAQZXJWVZXN5299-90-18 07:22:00 Test Item Value Reference Range Interpretation Comments Vanco Tr TND (test code = Vanco Tr 0230 1 TND) [facility] AND [id number] 06:12:00 Test Item Value Reference Range Interpretation Comments UA Hyal Cast (test 3 See_Comment [Automat ed message] The code = UA Hyal Cast) system which generated this result transmit yury reference range : <=2. The reference range was not used to interpr et this result as marlys l/abnormal. [facility] AND [id number] 06:12:00 Test Item Value Reference Range Interpretation Comments UA Mucus (test code = UA Mucus) Many /LPF [facility] AND [id number] 06:12:00 Test Item Value Reference Range Interpretation Comments UA Bacteria (test code = UA Occasional /HPF Bacteria) [facility] AND [id number] 06:12:00 Test Item Value Reference Range Interpretation Comments UA RBC (test code = no gt See_Comment [Automa yury message] The UA RBC) system which ge nerated this result transmit yury reference range : <=2. The reference range was not used to interpr et this result as marlys l/abnormal. [facility] AND [id number] 06:12:00 Test Item Value Reference Range Interpretation Comments UA Turbidity (test code Slight *ABN*(06/21/18 = UA Turbidity) 1:12 AM) [facility] AND [id number] 06:12:00 Test Item Value Reference Range Interpretation Comments UA Color (test code = Yellow *NA*(06/21/18 UA Color) 1:12 AM) [facility] AND [id number] 06:12:00 Test Item Value Reference Range Interpretation Comments UA Spec Grav (test code = UA Spec 1.023 1 Grav) [facility] AND [id number] 06:12:00 Test Item Value Reference Range Interpretation Comments UA Protein (test code = UA Protein) 30 mg/dL [facility] AND [id number] 06:12:00 Test Item Value Reference Range Interpretation Comments UA pH (test code = UA pH) 5.0 1 5.0-8.0 [facility] AND [id number] 06:12:00 Test Item Value Reference Range Interpretation Comments UA Leuk Est (test Negative (06/21/18 1:12 code = UA Leuk Est) AM) [facility] [id number] 06:12:00 Test Item Value Reference Range Interpretation Comments UA Nitrite (test code Negative (06/21/18 1:12 = UA Nitrite) AM) [facility] [id number] 06:12:00 Test Item Value Reference Range Interpretation Comments UA Urobilinogen (test code = UA no gt 0.1-1.0 Urobilinogen) [facility] [id number] 06:12:00 Test Item Value Reference Range Interpretation Comments UA Glucose (test code Negative *NA*(06/21/18 = UA Glucose) 1:12 AM) [facility] [id number] 06:12:00 Test Item Value Reference Range Interpretation Comments UA WBC (test code = 7 See_Comment [Automa yury message] The UA WBC) system which ge nerated this result transmit yury reference range : <=5. The reference range was not used to interpr et this result as marlys l/abnormal. [facility] [id number] 06:12:00 Test Item Value Reference Range Interpretation Comments UA Sq Epi (test code = UA Sq Occasional /LPF Epi) [facility] AND [id number] 06:12:00 Test Item Value Reference Range Interpretation Comments UA Ketones (test code Negative *NA*(06/21/18 = UA Ketones) 1:12 AM) [facility] [id number] 06:12:00 Test Item Value Reference Range Interpretation Comments UA Blood (test code = Negative (06/21/18 1:12 UA Blood) AM) [facility] AND [id number] 06:12:00 Test Item Value Reference Range Interpretation Comments UA Bili (test code = Negative *NA*(06/21/18 UA Bili) 1:12 AM) [facility] [id number] 06:12:00 Test Item Value Reference Range Interpretation Comments U Preg (test code = U Negative (06/21/18 1:12 Preg) AM) [facility] [id number] 06:12:00 Test Item Value Reference Range Interpretation Comments UA Hyal Cast (test 3 See_Comment [Automat ed message] The code = UA Hyal Cast) system which generated this result transmit yury reference range : <=2. The reference range was not used to interpr et this result as marlys l/abnormal. [facility] AND [id number] 06:12:00 Test Item Value Reference Range Interpretation Comments UA Mucus (test code = UA Mucus) Many /LPF [facility] AND [id number] 06:12:00 Test Item Value Reference Range Interpretation Comments UA Bacteria (test code = UA Occasional /HPF Bacteria) [facility] AND [id number] 06:12:00 Test Item Value Reference Range Interpretation Comments UA RBC (test code = no gt See_Comment [Automa yury message] The UA RBC) system which ge nerated this result transmit yury reference range : <=2. The reference range was not used to interpr et this result as marlys l/abnormal. [facility] AND [id number] 06:12:00 Test Item Value Reference Range Interpretation Comments UA Turbidity (test code Slight *ABN*(06/21/18 = UA Turbidity) 1:12 AM) [facility] AND [id number] 06:12:00 Test Item Value Reference Range Interpretation Comments UA Color (test code = Yellow *NA*(06/21/18 UA Color) 1:12 AM) [facility] AND [id number] 06:12:00 Test Item Value Reference Range Interpretation Comments UA Spec Grav (test code = UA Spec 1.023 1 Grav) [facility] AND [id number] 06:12:00 Test Item Value Reference Range Interpretation Comments UA Protein (test code = UA Protein) 30 mg/dL [facility] AND [id number] 06:12:00 Test Item Value Reference Range Interpretation Comments UA pH (test code = UA pH) 5.0 1 5.0-8.0 [facility] AND [id number] 06:12:00 Test Item Value Reference Range Interpretation Comments UA Leuk Est (test Negative (06/21/18 1:12 code = UA Leuk Est) AM) [facility] AND [id number] 06:12:00 Test Item Value Reference Range Interpretation Comments UA Nitrite (test code Negative (06/21/18 1:12 = UA Nitrite) AM) [facility] AND [id number] 06:12:00 Test Item Value Reference Range Interpretation Comments UA Urobilinogen (test code = UA no gt 0.1-1.0 Urobilinogen) [facility] AND [id number] 06:12:00 Test Item Value Reference Range Interpretation Comments UA Glucose (test code Negative *NA*(06/21/18 = UA Glucose) 1:12 AM) [facility] AND [id number] 06:12:00 Test Item Value Reference Range Interpretation Comments UA WBC (test code = 7 See_Comment [Automa yury message] The UA WBC) system which ge nerated this result transmit yury reference range : <=5. The reference range was not used to interpr et this result as marlys l/abnormal. [facility] AND [id number] 06:12:00 Test Item Value Reference Range Interpretation Comments UA Sq Epi (test code = UA Sq Occasional /LPF Epi) [facility] AND [id number] 06:12:00 Test Item Value Reference Range Interpretation Comments UA Ketones (test code Negative *NA*(06/21/18 = UA Ketones) 1:12 AM) [facility] AND [id number] 06:12:00 Test Item Value Reference Range Interpretation Comments UA Blood (test code = Negative (06/21/18 1:12 UA Blood) AM) [facility] AND [id number] 06:12:00 Test Item Value Reference Range Interpretation Comments UA Bili (test code = Negative *NA*(06/21/18 UA Bili) 1:12 AM) [facility] [id number] 06:12:00 Test Item Value Reference Range Interpretation Comments U Preg (test code = U Negative (06/21/18 1:12 Preg) AM) [facility] AND [id number] 06:12:00 Test Item Value Reference Range Interpretation Comments UA Hyal Cast (test 3 See_Comment [Automat ed message] The code = UA Hyal Cast) system which generated this result transmit yury reference range : <=2. The reference range was not used to interpr et this result as marlys l/abnormal. [facility] AND [id number] 06:12:00 Test Item Value Reference Range Interpretation Comments UA Mucus (test code = UA Mucus) Many /LPF [facility] AND [id number] 06:12:00 Test Item Value Reference Range Interpretation Comments UA Bacteria (test code = UA Occasional /HPF Bacteria) [facility] AND [id number] 06:12:00 Test Item Value Reference Range Interpretation Comments UA RBC (test code = no gt See_Comment [Automa yury message] The UA RBC) system which ge nerated this result transmit yury reference range : <=2. The reference range was not used to interpr et this result as marlys l/abnormal. [facility] AND [id number] 06:12:00 Test Item Value Reference Range Interpretation Comments UA Turbidity (test code Slight *ABN*(06/21/18 = UA Turbidity) 1:12 AM) [facility] AND [id number] 06:12:00 Test Item Value Reference Range Interpretation Comments UA Color (test code = Yellow *NA*(06/21/18 UA Color) 1:12 AM) [facility] AND [id number] 06:12:00 Test Item Value Reference Range Interpretation Comments UA Spec Grav (test code = UA Spec 1.023 1 Grav) [facility] AND [id number] 06:12:00 Test Item Value Reference Range Interpretation Comments UA Protein (test code = UA Protein) 30 mg/dL [facility] AND [id number] 06:12:00 Test Item Value Reference Range Interpretation Comments UA pH (test code = UA pH) 5.0 1 5.0-8.0 [facility] AND [id number] 06:12:00 Test Item Value Reference Range Interpretation Comments UA Leuk Est (test Negative (06/21/18 1:12 code = UA Leuk Est) AM) [facility] AND [id number] 06:12:00 Test Item Value Reference Range Interpretation Comments UA Nitrite (test code Negative (06/21/18 1:12 = UA Nitrite) AM) [facility] AND [id number] 06:12:00 Test Item Value Reference Range Interpretation Comments UA Urobilinogen (test code = UA no gt 0.1-1.0 Urobilinogen) [facility] [id number] 06:12:00 Test Item Value Reference Range Interpretation Comments UA Glucose (test code Negative *NA*(06/21/18 = UA Glucose) 1:12 AM) [facility] [id number] 06:12:00 Test Item Value Reference Range Interpretation Comments UA WBC (test code = 7 See_Comment [Automa yury message] The UA WBC) system which ge nerated this result transmit yury reference range : <=5. The reference range was not used to interpr et this result as marlys l/abnormal. [facility] [id number] 06:12:00 Test Item Value Reference Range Interpretation Comments UA Sq Epi (test code = UA Sq Occasional /LPF Epi) [facility] [id number] 06:12:00 Test Item Value Reference Range Interpretation Comments UA Ketones (test code Negative *NA*(06/21/18 = UA Ketones) 1:12 AM) [facility] [id number] 06:12:00 Test Item Value Reference Range Interpretation Comments UA Blood (test code = Negative (06/21/18 1:12 UA Blood) AM) [facility] [id number] 06:12:00 Test Item Value Reference Range Interpretation Comments UA Bili (test code = Negative *NA*(06/21/18 UA Bili) 1:12 AM) [facility] [id number] 06:12:00 Test Item Value Reference Range Interpretation Comments U Preg (test code = U Negative (06/21/18 1:12 Preg) AM) [facility] [id number] 02:38:00 Test Item Value Reference Range Interpretation Comments Hgb A1C (test code = Hgb A1C) 8.2 [facility] [id number] 02:38:00 Test Item Value Reference Range Interpretation Comments Hgb A1C (test code = Hgb A1C) 8.2 [facility] [id number] 02:38:00 Test Item Value Reference Range Interpretation Comments Hgb A1C (test code = Hgb A1C) 8.2 [facility]AC [id number] 23:05:00 Test Item Value Reference Range Interpretation Comments Total CK (test code = Total CK) 34 12-191 [facility] CenterRFMicronECU HE[facility]AU[facility] [id number] 23:05:00 Test Item Value Reference Range Interpretation Comments Procalcitonin Lvl (test 0.07 See_Comment [Au tomated message] code = Procalcitonin Lvl) Th e system which generated this result transmitted ref erence range: <=0.10. The reference range was not used to interpr et this result as normal/abnormal . [facility] [id number] 23:05:00 Test Item Value Reference Range Interpretation Comments Alk Phos (test code = Alk Phos) 82 39-136 [facility] [id number] 23:05:00 Test Item Value Reference Range Interpretation Comments Bili Total (test code = Bili Total) 0.3 0.2-1.3 [facility]2019-03-21 23:05:00 Test Item Value Reference Range Interpretation Comments Albumin Lvl (test code = Albumin Lvl) 3.3 3.5-5.0 [facility] [id number] 23:05:00 Test Item Value Reference Range Interpretation Comments ALT (test code = ALT) 52 See_Comment [Auto mated message] The system which ge nerated this result transmit yury reference range : <=65. The reference range was not used to interpr et this result as marlys l/abnormal. [facility] [id number] 23:05:00 Test Item Value Reference Range Interpretation Comments AST (test code = AST) 28 See_Comment [Auto mated message] The system which ge nerated this result transmit yury reference range : <=37. The reference range was not used to interpr et this result as marlys l/abnormal. [facility] [id number] 23:05:00 Test Item Value Reference Range Interpretation Comments Total Protein (test code = Total 9.2 6.4-8.4 Protein) [facility]2019-03-21 23:05:00 Test Item Value Reference Range Interpretation Comments Globulin (test code = Globulin) 5.9 2.7-4.2 [facility] [id number] 23:05:00 Test Item Value Reference Range Interpretation Comments A/G Ratio (test code = A/G Ratio) 0.6 1 0.7-1.6 [facility] [id number] 23:05:00 Test Item Value Reference Range Interpretation Comments B/C Ratio (test code = B/C Ratio) 12 1 6-25 [facility] [id number] 23:05:00 Test Item Value Reference Range Interpretation Comments Lactic Acid Lvl (test code = Lactic 1.6 0.5-2.2 Acid Lvl) [facility] [id number] 23:05:00 Test Item Value Reference Range Interpretation Comments Sed Rate (test code = 90 See_Comment [Auto mated message] The Sed Rate) system which ge nerated this result transmit yury reference range : <=20. The reference range was not used to interpr et this result as marlys l/abnormal. [facility] [id number] 23:05:00 Test Item Value Reference Range Interpretation Comments Basophils # (test code 0.1 See_Comment [Aut omated message] The = Basophils #) system which generated this result tra nsmitted reference range : <=0.2. The reference r krys was not used to int erpret this result as normal/abnormal . [facility] [id number] 23:05:00 Test Item Value Reference Range Interpretation Comments PT (test code = PT) 13.3 s 12.0-14.7 [facility] H[id number] 23:05:00 Test Item Value Reference Range Interpretation Comments INR (test code = INR) 1.03 1 0.85-1.17 [facility] [id number] 23:05:00 Test Item Value Reference Range Interpretation Comments PTT (test code = PTT) 34.8 s 22.9-35.8 [facility] [id number] 23:05:00 Test Item Value Reference Range Interpretation Comments C-REACTIVE PROTEIN (test code = 104.0 C-REACTIVE PROTEIN) [facility] HospitalCARDIAC [id number] 23:05:00 Test Item Value Reference Range Interpretation Comments Total CK (test code = Total CK) 34 12-191 [facility] [id number] 23:05:00 Test Item Value Reference Range Interpretation Comments Procalcitonin Lvl (test 0.07 See_Comment [Au tomated message] code = Procalcitonin Lvl) Th e system which generated this result transmitted ref erence range: <=0.10. The reference range was not used to interpr et this result as normal/abnormal . [facility]2019-03-21 23:05:00 Test Item Value Reference Range Interpretation Comments Alk Phos (test code = Alk Phos) 82 39-136 [facility] CenterRFMicronECU HEALTH BEAUFORT [id number] 23:05:00 Test Item Value Reference Range Interpretation Comments Bili Total (test code = Bili Total) 0.3 0.2-1.3 [facility] CenterRFMicronANN [place] [id number] 23:05:00 Test Item Value Reference Range Interpretation Comments Albumin Lvl (test code = Albumin Lvl) 3.3 3.5-5.0 [facility] CenterRFMicronECU HEALTH BEAUFORT [id number] 23:05:00 Test Item Value Reference Range Interpretation Comments ALT (test code = ALT) 52 See_Comment [Auto mated message] The system which ge nerated this result transmit yury reference range : <=65. The reference range was not used to interpr et this result as marlys l/abnormal. [facility] [id number] 23:05:00 Test Item Value Reference Range Interpretation Comments AST (test code = AST) 28 See_Comment [Auto mated message] The system which ge nerated this result transmit yury reference range : <=37. The reference range was not used to interpr et this result as marlys l/abnormal. [facility] [id number] 23:05:00 Test Item Value Reference Range Interpretation Comments Total Protein (test code = Total 9.2 6.4-8.4 Protein) [facility] [id number] 23:05:00 Test Item Value Reference Range Interpretation Comments Globulin (test code = Globulin) 5.9 2.7-4.2 [facility]Pin[facility] [id number] 23:05:00 Test Item Value Reference Range Interpretation Comments A/G Ratio (test code = A/G Ratio) 0.6 1 0.7-1.6 [place] [id number] 23:05:00 Test Item Value Reference Range Interpretation Comments B/C Ratio (test code = B/C Ratio) 12 1 6-25 [facility] [id number] 23:05:00 Test Item Value Reference Range Interpretation Comments Lactic Acid Lvl (test code = Lactic 1.6 0.5-2.2 Acid Lvl) [facility] H[id number] 23:05:00 Test Item Value Reference Range Interpretation Comments Sed Rate (test code = 90 See_Comment [Auto mated message] The Sed Rate) system which ge nerated this result transmit yury reference range : <=20. The reference range was not used to interpr et this result as marlys l/abnormal. [facility] H[id number] 23:05:00 Test Item Value Reference Range Interpretation Comments Basophils # (test code 0.1 See_Comment [Aut omated message] The = Basophils #) system which generated this result tra nsmitted reference range : <=0.2. The reference r krys was not used to int erpret this result as normal/abnormal . [facility] [id number] 23:05:00 Test Item Value Reference Range Interpretation Comments PT (test code = PT) 13.3 s 12.0-14.7 [facility] Hos[id number] 23:05:00 Test Item Value Reference Range Interpretation Comments INR (test code = INR) 1.03 1 0.85-1.17 [facility] Ho[id number] 23:05:00 Test Item Value Reference Range Interpretation Comments PTT (test code = PTT) 34.8 s 22.9-35.8 [facility] HospitalDviygnfEQXZZYHBSP4129-23-26 23:05:00 Test Item Value Reference Range Interpretation Comments C-REACTIVE PROTEIN (test code = 104.0 C-REACTIVE PROTEIN) [facility] HospitalCARDIAC [id number] 23:05:00 Test Item Value Reference Range Interpretation Comments Total CK (test code = Total CK) 34 12-191 [facility] [id number] 23:05:00 Test Item Value Reference Range Interpretation Comments Procalcitonin Lvl (test 0.07 See_Comment [Au tomated message] code = Procalcitonin Lvl) Th e system which generated this result transmitted ref erence range: <=0.10. The reference range was not used to interpr et this result as normal/abnormal . [facility] [id number] 23:05:00 Test Item Value Reference Range Interpretation Comments Alk Phos (test code = Alk Phos) 82 39-136 [facility]2019-03-21 23:05:00 Test Item Value Reference Range Interpretation Comments Bili Total (test code = Bili Total) 0.3 0.2-1.3 [facility]2019-03-21 23:05:00 Test Item Value Reference Range Interpretation Comments Albumin Lvl (test code = Albumin Lvl) 3.3 3.5-5.0 [facility]2019-03-21 23:05:00 Test Item Value Reference Range Interpretation Comments ALT (test code = ALT) 52 See_Comment [Auto mated message] The system which ge nerated this result transmit yury reference range : <=65. The reference range was not used to interpr et this result as marlys l/abnormal. [facility]2019-03-21 23:05:00 Test Item Value Reference Range Interpretation Comments AST (test code = AST) 28 See_Comment [Auto mated message] The system which ge nerated this result transmit yury reference range : <=37. The reference range was not used to interpr et this result as marlys l/abnormal. [facility]2019-03-21 23:05:00 Test Item Value Reference Range Interpretation Comments Total Protein (test code = Total 9.2 6.4-8.4 Protein) [facility]2019-03-21 23:05:00 Test Item Value Reference Range Interpretation Comments Globulin (test code = Globulin) 5.9 2.7-4.2 [facility]2019-03-21 23:05:00 Test Item Value Reference Range Interpretation Comments A/G Ratio (test code = A/G Ratio) 0.6 1 0.7-1.6 [facility]2019-03-21 23:05:00 Test Item Value Reference Range Interpretation Comments B/C Ratio (test code = B/C Ratio) 12 1 6-25 [facility]2019-03-21 23:05:00 Test Item Value Reference Range Interpretation Comments Lactic Acid Lvl (test code = Lactic 1.6 0.5-2.2 Acid Lvl) [facility] [id number] 23:05:00 Test Item Value Reference Range Interpretation Comments Sed Rate (test code = 90 See_Comment [Auto mated message] The Sed Rate) system which ge nerated this result transmit yury reference range : <=20. The reference range was not used to interpr et this result as marlys l/abnormal. [facility] H[id number] 23:05:00 Test Item Value Reference Range Interpretation Comments Basophils # (test code 0.1 See_Comment [Aut omated message] The = Basophils #) system which generated this result tra nsmitted reference range : <=0.2. The reference r krys was not used to int erpret this result as normal/abnormal . [facility] Hos[id number] 23:05:00 Test Item Value Reference Range Interpretation Comments PT (test code = PT) 13.3 s 12.0-14.7 [facility]GhpmnwfJUSUWILHGK0647-69-59 23:05:00 Test Item Value Reference Range Interpretation Comments INR (test code = INR) 1.03 1 0.85-1.17 [facility]BsqsbetZUQNTBIYRO1715-81-66 23:05:00 Test Item Value Reference Range Interpretation Comments PTT (test code = PTT) 34.8 s 22.9-35.8 [facility]KuswklnZHJJDNDSLW7177-96-41 23:05:00 Test Item Value Reference Range Interpretation Comments C-REACTIVE PROTEIN (test code = 104.0 C-REACTIVE PROTEIN) [facility] [id number] 12:04:00 Test Item Value Reference Range Interpretation Comments Hgb A1C (test code = Hgb A1C) 8.5 [facility]Get[facility] [id number] 12:04:00 Test Item Value Reference Range Interpretation Comments Hgb A1C (test code = Hgb A1C) 8.5 [facility] HospitalWayna CSTZQDJQZ0696-99-17 12:04:00 Test Item Value Reference Range Interpretation Comments Hgb A1C (test code = Hgb A1C) 8.5 [facility] [id number] 05:41:00 Test Item Value Reference Range Interpretation Comments eGFR (test code = eGFR) 110 [facility] [id number] 05:41:00 Test Item Value Reference Range Interpretation Comments Potassium Lvl (test code = Potassium 4.0 3.5-5.1 Lvl) [facility] [id number] 05:41:00 Test Item Value Reference Range Interpretation Comments Creatinine Lvl (test code = Creatinine 0.6 0.5-1.4 Lvl) [facility]2014-11-12 05:41:00 Test Item Value Reference Range Interpretation Comments Sodium Lvl (test code = Sodium Lvl) 137 135-145 [facility]2014-11-12 05:41:00 Test Item Value Reference Range Interpretation Comments BUN (test code = BUN) 9 7-22 [facility]2014-11-12 05:41:00 Test Item Value Reference Range Interpretation Comments Glucose Lvl (test code = Glucose Lvl) 135 70-99 [facility]2014-11-12 05:41:00 Test Item Value Reference Range Interpretation Comments Calcium Lvl (test code = Calcium Lvl) 8.7 8.5-10.5 [facility]2014-11-12 05:41:00 Test Item Value Reference Range Interpretation Comments CO2 (test code = CO2) 25 24-32 [facility]2014-11-12 05:41:00 Test Item Value Reference Range Interpretation Comments Chloride Lvl (test code = Chloride Lvl) 105 95-109 [facility]2014-11-12 05:41:00 Test Item Value Reference Range Interpretation Comments AGAP (test code = AGAP) 11.0 10.0-20.0 [place] [id number] 05:41:00 Test Item Value Reference Range Interpretation Comments S Preg (test code = S Negative *NA*(02/10/14 Preg) 11:41 PM) [facility] CenterAenbtkcNJXFSAAREY2860-29-40 05:41:00 Test Item Value Reference Range Interpretation Comments Eosinophils # (test code 0.1 See_Comment [A utomated message] The = Eosinophils #) system whic h generated this result tra nsmitted reference range : <=0.5. The reference r krys was not used to int erpret this result as normal/abnormal . [facility] CenterHvjvhjePOYAQPKLFT7624-14-20 05:41:00 Test Item Value Reference Range Interpretation Comments Monocytes # (test code 0.8 See_Comment [Aut omated message] The = Monocytes #) system which generated this result tra nsmitted reference range : <=1.6. The reference r krys was not used to int erpret this result as normal/abnormal . [facility] CenterOiltctyCKLZYJHEYG3733-73-09 05:41:00 Test Item Value Reference Range Interpretation Comments Basophils # (test code 0.2 See_Comment [Aut omated message] The = Basophils #) system which generated this result tra nsmitted reference range : <=0.2. The reference r krys was not used to int erpret this result as normal/abnormal . [facility] CenterRwikzjxYRDCCEKEFR5824-36-49 05:41:00 Test Item Value Reference Range Interpretation Comments Lymphocytes # (test code = Lymphocytes 6.5 1.0-5.5 #) [facility] CenterPcqutlxHKRZIBNRDL1582-09-26 05:41:00 Test Item Value Reference Range Interpretation Comments Basophils (test code = 1.8 See_Comment [Aut omated message] The Basophils) system which ge nerated this result tra nsmitted reference range : <=1.0. The reference r krys was not used to int erpret this result as normal/abnormal . [facility] CenterWliltmoRPPFFGBPPJ8467-47-55 05:41:00 Test Item Value Reference Range Interpretation Comments Segs-Bands # (test code = Segs-Bands #) 6.3 1.5-8.7 [facility] CenterClmckcsANALGNEDSB1131-95-79 05:41:00 Test Item Value Reference Range Interpretation Comments Segs (test code = Segs) 45.3 34.0-64.0 [facility] CenterJtzopzgDXYYRWATUH2120-58-37 05:41:00 Test Item Value Reference Range Interpretation Comments Lymphocytes (test code = Lymphocytes) 46.5 20.0-40.0 [facility] CenterErhxdjxWQULFJLYYE0989-19-46 05:41:00 Test Item Value Reference Range Interpretation Comments Monocytes (test code = Monocytes) 5.5 2.0-12.0 [facility] CenterBzmdwzlCMXCNZEHCL5833-68-10 05:41:00 Test Item Value Reference Range Interpretation Comments Eosinophils (test code = 0.9 See_Comment [A utomated message] The Eosinophils) system which ge nerated this result tra nsmitted reference range : <=4.0. The reference r krys was not used to int erpret this result as normal/abnormal . [facility] CenterGzsvdzaJGTFDJEFDW4656-72-60 05:41:00 Test Item Value Reference Range Interpretation Comments RDW (test code = RDW) 13.1 11.5-14.5 [facility] CenterZsjojfkZQIIANFGAB1880-30-89 05:41:00 Test Item Value Reference Range Interpretation Comments Platelet (test code = Platelet) 369 133-450 [facility] CenterDkgwtqkCJFUEQABVC2840-65-40 05:41:00 Test Item Value Reference Range Interpretation Comments MPV (test code = MPV) 8.0 7.4-10.4 [facility] CenterVmamxgiQWICDVDBRS8197-10-98 05:41:00 Test Item Value Reference Range Interpretation Comments MCHC (test code = MCHC) 34.1 32.0-36.0 [facility] CenterAccfswrHCZUXSQAHC7608-10-99 05:41:00 Test Item Value Reference Range Interpretation Comments WBC (test code = WBC) 13.9 4.5-13.5 [facility] CenterBizkicaDWKXBZLHDK5242-12-82 05:41:00 Test Item Value Reference Range Interpretation Comments Hct (test code = Hct) 35.8 36.0-48.0 [facility] CenterTnybzevHTUVHCXWWU9064-14-58 05:41:00 Test Item Value Reference Range Interpretation Comments MCV (test code = MCV) 84.7 80.0-98.0 [facility] CenterRpxwukiALPCDFBRLT5062-99-99 05:41:00 Test Item Value Reference Range Interpretation Comments RBC (test code = RBC) 4.23 4.20-5.40 [facility] CenterZancmqkYWFWXMJBEX8588-96-43 05:41:00 Test Item Value Reference Range Interpretation Comments Hgb (test code = Hgb) 12.2 12.0-16.0 [facility] CenterOhhunuwGNFFZNXGHM5508-33-59 05:41:00 Test Item Value Reference Range Interpretation Comments MCH (test code = MCH) 28.8 pg 27.0-31.0 [facility]2014-11-12 05:41:00 Test Item Value Reference Range Interpretation Comments eGFR (test code = eGFR) 110 [facility]2014-11-12 05:41:00 Test Item Value Reference Range Interpretation Comments Potassium Lvl (test code = Potassium 4.0 3.5-5.1 Lvl) [facility]2014-11-12 05:41:00 Test Item Value Reference Range Interpretation Comments Creatinine Lvl (test code = Creatinine 0.6 0.5-1.4 Lvl) [facility]2014-11-12 05:41:00 Test Item Value Reference Range Interpretation Comments Sodium Lvl (test code = Sodium Lvl) 137 135-145 [facility]2014-11-12 05:41:00 Test Item Value Reference Range Interpretation Comments BUN (test code = BUN) 9 7-22 [facility]2014-11-12 05:41:00 Test Item Value Reference Range Interpretation Comments Glucose Lvl (test code = Glucose Lvl) 135 70-99 [facility]2014-11-12 05:41:00 Test Item Value Reference Range Interpretation Comments Calcium Lvl (test code = Calcium Lvl) 8.7 8.5-10.5 [facility]2014-11-12 05:41:00 Test Item Value Reference Range Interpretation Comments CO2 (test code = CO2) 25 24-32 [facility]2014-11-12 05:41:00 Test Item Value Reference Range Interpretation Comments Chloride Lvl (test code = Chloride Lvl) 105 95-109 [facility]2014-11-12 05:41:00 Test Item Value Reference Range Interpretation Comments AGAP (test code = AGAP) 11.0 10.0-20.0 [place] [id number] 05:41:00 Test Item Value Reference Range Interpretation Comments S Preg (test code = S Negative *NA*(02/10/14 Preg) 11:41 PM) [facility] CenterRbzyxpmEHMUNDDZBT0008-98-27 05:41:00 Test Item Value Reference Range Interpretation Comments Eosinophils # (test code 0.1 See_Comment [A utomated message] The = Eosinophils #) system whic h generated this result tra nsmitted reference range : <=0.5. The reference r krys was not used to int erpret this result as normal/abnormal . [facility] CenterFwllqqhWIWJXGYJHU9068-73-28 05:41:00 Test Item Value Reference Range Interpretation Comments Monocytes # (test code 0.8 See_Comment [Aut omated message] The = Monocytes #) system which generated this result tra nsmitted reference range : <=1.6. The reference r krys was not used to int erpret this result as normal/abnormal . [facility] CenterSvraiwjPFDDDKKFDD0708-53-00 05:41:00 Test Item Value Reference Range Interpretation Comments Basophils # (test code 0.2 See_Comment [Aut omated message] The = Basophils #) system which generated this result tra nsmitted reference range : <=0.2. The reference r krys was not used to int erpret this result as normal/abnormal . [facility] CenterFxyxlpnXVZNUYTAGH6029-50-77 05:41:00 Test Item Value Reference Range Interpretation Comments Lymphocytes # (test code = Lymphocytes 6.5 1.0-5.5 #) [facility] CenterCcboktpQSQAOYUEZI1400-98-00 05:41:00 Test Item Value Reference Range Interpretation Comments Basophils (test code = 1.8 See_Comment [Aut omated message] The Basophils) system which ge nerated this result tra nsmitted reference range : <=1.0. The reference r krys was not used to int erpret this result as normal/abnormal . [facility] CenterRopviyeWFLQWWYTBP1271-76-45 05:41:00 Test Item Value Reference Range Interpretation Comments Segs-Bands # (test code = Segs-Bands #) 6.3 1.5-8.7 [facility] CenterKkmgplaQRFKBHJFII1378-40-44 05:41:00 Test Item Value Reference Range Interpretation Comments Segs (test code = Segs) 45.3 34.0-64.0 [facility] CenterLubzubvDIZQZLBDWF7560-18-07 05:41:00 Test Item Value Reference Range Interpretation Comments Lymphocytes (test code = Lymphocytes) 46.5 20.0-40.0 [facility] CenterHhqciioXJBNCHXHAG1578-47-86 05:41:00 Test Item Value Reference Range Interpretation Comments Monocytes (test code = Monocytes) 5.5 2.0-12.0 [facility] CenterTqnmqyrCUGKPVZGFN4551-22-25 05:41:00 Test Item Value Reference Range Interpretation Comments Eosinophils (test code = 0.9 See_Comment [A utomated message] The Eosinophils) system which ge nerated this result tra nsmitted reference range : <=4.0. The reference r krys was not used to int erpret this result as normal/abnormal . [facility] CenterQpifeknOPRNYJQBRV0121-57-52 05:41:00 Test Item Value Reference Range Interpretation Comments RDW (test code = RDW) 13.1 11.5-14.5 [facility] CenterMrqsyhkATSWGOFFPD3933-86-79 05:41:00 Test Item Value Reference Range Interpretation Comments Platelet (test code = Platelet) 369 133-450 [facility] CenterOmwkapgSNXXCFQJSC9504-49-56 05:41:00 Test Item Value Reference Range Interpretation Comments MPV (test code = MPV) 8.0 7.4-10.4 [facility] CenterTxpwivpOUGSCMHOMT6762-76-06 05:41:00 Test Item Value Reference Range Interpretation Comments MCHC (test code = MCHC) 34.1 32.0-36.0 [facility] CenterEkqpgkyGNSDGXFBFR3606-74-33 05:41:00 Test Item Value Reference Range Interpretation Comments WBC (test code = WBC) 13.9 4.5-13.5 [facility] CenterLkjjnufYNCYHRAGLR8819-53-44 05:41:00 Test Item Value Reference Range Interpretation Comments Hct (test code = Hct) 35.8 36.0-48.0 [facility] CenterVsuhbzeZGSBDEJZAI8372-82-98 05:41:00 Test Item Value Reference Range Interpretation Comments MCV (test code = MCV) 84.7 80.0-98.0 [facility] CenterLzrbyolQUYCNBOGPS4466-95-90 05:41:00 Test Item Value Reference Range Interpretation Comments RBC (test code = RBC) 4.23 4.20-5.40 [facility] CenterPwclaviFZACLWRYYG1700-78-44 05:41:00 Test Item Value Reference Range Interpretation Comments Hgb (test code = Hgb) 12.2 12.0-16.0 [facility] CenterMiehjhcEOTDEZSXTT2761-73-58 05:41:00 Test Item Value Reference Range Interpretation Comments MCH (test code = MCH) 28.8 pg 27.0-31.0 [facility]2014-11-12 05:41:00 Test Item Value Reference Range Interpretation Comments eGFR (test code = eGFR) 110 [facility]2014-11-12 05:41:00 Test Item Value Reference Range Interpretation Comments Potassium Lvl (test code = Potassium 4.0 3.5-5.1 Lvl) [facility]2014-11-12 05:41:00 Test Item Value Reference Range Interpretation Comments Creatinine Lvl (test code = Creatinine 0.6 0.5-1.4 Lvl) [facility]2014-11-12 05:41:00 Test Item Value Reference Range Interpretation Comments Sodium Lvl (test code = Sodium Lvl) 137 135-145 [facility]2014-11-12 05:41:00 Test Item Value Reference Range Interpretation Comments BUN (test code = BUN) 9 7-22 [facility]2014-11-12 05:41:00 Test Item Value Reference Range Interpretation Comments Glucose Lvl (test code = Glucose Lvl) 135 70-99 [facility]2014-11-12 05:41:00 Test Item Value Reference Range Interpretation Comments Calcium Lvl (test code = Calcium Lvl) 8.7 8.5-10.5 [facility]2014-11-12 05:41:00 Test Item Value Reference Range Interpretation Comments CO2 (test code = CO2) 25 24-32 [facility]2014-11-12 05:41:00 Test Item Value Reference Range Interpretation Comments Chloride Lvl (test code = Chloride Lvl) 105 95-109 [facility]2014-11-12 05:41:00 Test Item Value Reference Range Interpretation Comments AGAP (test code = AGAP) 11.0 10.0-20.0 [place] [id number] 05:41:00 Test Item Value Reference Range Interpretation Comments S Preg (test code = S Negative *NA*(02/10/14 Preg) 11:41 PM) [facility] CenterHibkznoRWXSWLBXKT0977-02-39 05:41:00 Test Item Value Reference Range Interpretation Comments Eosinophils # (test code 0.1 See_Comment [A utomated message] The = Eosinophils #) system whic h generated this result tra nsmitted reference range : <=0.5. The reference r krys was not used to int erpret this result as normal/abnormal . [facility] CenterCmnwygrVYJFAQZLKB5372-95-50 05:41:00 Test Item Value Reference Range Interpretation Comments Monocytes # (test code 0.8 See_Comment [Aut omated message] The = Monocytes #) system which generated this result tra nsmitted reference range : <=1.6. The reference r krys was not used to int erpret this result as normal/abnormal . [facility] CenterVleogfiDQZWYVSVND6567-42-71 05:41:00 Test Item Value Reference Range Interpretation Comments Basophils # (test code 0.2 See_Comment [Aut omated message] The = Basophils #) system which generated this result tra nsmitted reference range : <=0.2. The reference r krys was not used to int erpret this result as normal/abnormal . [facility] CenterYdrcasrSFULMSJFWD9147-28-82 05:41:00 Test Item Value Reference Range Interpretation Comments Lymphocytes # (test code = Lymphocytes 6.5 1.0-5.5 #) [facility] CenterKckqlzzHOABCTDMRJ4276-73-19 05:41:00 Test Item Value Reference Range Interpretation Comments Basophils (test code = 1.8 See_Comment [Aut omated message] The Basophils) system which ge nerated this result tra nsmitted reference range : <=1.0. The reference r krys was not used to int erpret this result as normal/abnormal . [facility] CenterZemxpblTUVFTWRGYM2052-15-44 05:41:00 Test Item Value Reference Range Interpretation Comments Segs-Bands # (test code = Segs-Bands #) 6.3 1.5-8.7 [facility] CenterBwlgsnqIEUGDLHMBF3045-96-85 05:41:00 Test Item Value Reference Range Interpretation Comments Segs (test code = Segs) 45.3 34.0-64.0 [facility] CenterMponsuhQWVJRSCAPN6451-30-30 05:41:00 Test Item Value Reference Range Interpretation Comments Lymphocytes (test code = Lymphocytes) 46.5 20.0-40.0 [facility] CenterWjfgzkfHTJUBXOCXH7812-82-90 05:41:00 Test Item Value Reference Range Interpretation Comments Monocytes (test code = Monocytes) 5.5 2.0-12.0 [facility] CenterSwamukiGRPMBFSUGX8037-60-43 05:41:00 Test Item Value Reference Range Interpretation Comments Eosinophils (test code = 0.9 See_Comment [A utomated message] The Eosinophils) system which ge nerated this result tra nsmitted reference range : <=4.0. The reference r krys was not used to int erpret this result as normal/abnormal . [facility] CenterVwgdmhwRAPSHFCEUV1572-08-75 05:41:00 Test Item Value Reference Range Interpretation Comments RDW (test code = RDW) 13.1 11.5-14.5 [facility] CenterIucgtqdWOGKKEBQXI6866-67-67 05:41:00 Test Item Value Reference Range Interpretation Comments Platelet (test code = Platelet) 369 133-450 [facility] CenterMmmgogoWBMXTSVHMV5434-03-36 05:41:00 Test Item Value Reference Range Interpretation Comments MPV (test code = MPV) 8.0 7.4-10.4 [facility] CenterZfjwwmkTRDHSSPBUA7793-92-48 05:41:00 Test Item Value Reference Range Interpretation Comments MCHC (test code = MCHC) 34.1 32.0-36.0 [facility] CenterKtbutybBBGAJDKHFI8742-77-68 05:41:00 Test Item Value Reference Range Interpretation Comments WBC (test code = WBC) 13.9 4.5-13.5 [facility] CenterHcqkjrxIYXIAPVZRH8025-56-45 05:41:00 Test Item Value Reference Range Interpretation Comments Hct (test code = Hct) 35.8 36.0-48.0 [facility] CenterSiuzdmzKXLUKBUFGS1489-16-37 05:41:00 Test Item Value Reference Range Interpretation Comments MCV (test code = MCV) 84.7 80.0-98.0 [facility] CenterAlrwqbgCTRGGIQOWH9837-01-20 05:41:00 Test Item Value Reference Range Interpretation Comments RBC (test code = RBC) 4.23 4.20-5.40 [facility] CenterRuwvmszCWFLEHUPWX0769-64-28 05:41:00 Test Item Value Reference Range Interpretation Comments Hgb (test code = Hgb) 12.2 12.0-16.0 [facility] CenterXfdrlroASHFEHIBWU6506-96-13 05:41:00 Test Item Value Reference Range Interpretation Comments MCH (test code = MCH) 28.8 pg 27.0-31.0 [facility] Notes Date/Time Note Provider Source 2018-07-05 LEFT ANKLE [facility] 22:45:00-00:00 Clinical Indication: - infection after recent pond rgery Comparison: None FINDINGS: The 3 views of the ankle alban w normal alignment without fractures or dislocations. The tibiotalar joint and talar dome are unremarkable. The subtalar joint is unremarkable. There is no ankle joint effusi on. The ankle mortise is int act. The distal tibia-fibular alignment is unremarkable. There is no soft tissue swelling or radiopaque foreign bodies. If there is further concern, recommend follow-up radiographs or MRI for complete assessment. IMPRESSION: 1. No fractures or dislocation of the ankle. SL: [id number] 2018-07-05 Clinical Indication: - Undifferentiated Sepsis; [place] 22:12:00-00:00 Comparison: None FINDINGS: AP chest radiographs shows n ormal lung volumes without interstitial or airspace opacities, pleural effusions or pneumothorax. The heart size and pulmonary vasculature are normal. The trachea is midline. There are no clinically significant osseous abnormalities noted. IMPRESSION: No chest radiographic evidence of acute cardiopu lmonary disease. SL: [id number] 2018-06-21 EXAM: CT LEFT FOOT WITHOUT CONTRAST [facility] 08:09:00-00:00 DATE: 06/21/2018 at 1402 hours Ce nter INDICATION: - please include entire foot for pre op planning ADDITIONAL INFORMATION: Postsurgical infection COMPARISON: Left foot and ankle radiographs of 0 06/21/2018. TECHNIQUE: Volumetric CT of the foot is acquired without contrast. Axial, coronal and sagittal images are provided. 3D reconstructions are created at the acquisition workstation. IV contrast: None. DLP: 428 mGy-cm FINDINGS: Disuse osteopenia is present diffusely Distal tibia: Intact. Distal fibula: Intact. Talus: Osteochondral lesion of the medial talar dome measures 1.5 cm AP, 0.7 cm mediolateral and up to 0.4 cm in depth smooth margins, and no surrounding cystic change. Tiny ossicles are present at the posterior aspect of the talus. Calcaneus: Intact. Navicular: Intact. Cuboid: Intact. Cuneiforms: Intact. Metatarsals: Old injury to t he base of the 5th metatarsal is present, with residual deformity in this region. No acute fracture. Phalanges: Intact Soft tissues: Soft tissue sw elling is most evident at the anteromedial aspect of the ankle with 3 tiny metallic foreign bodies in this region up to 2 mm in length, which may represent surgical suture ti ny clips. No subcutaneous emphysema. No pneumart hrosis. IMPRESSION: 1. 1.5 x 0.7 x 0.4 cm osseous defect at the medi al talar dome 2. 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 Soft tissue swelling at t he anteromedial and medial aspect of the ankle with tiny surgical clips or sutures in this region. No subcutaneous emphysema 2018-06-21 EXAM: XR LEFT TIBIA 2 VIEWS [facility] 01:14:00-00:00 DATE: 06/21/2018 at 0211 hours Ce nter INDICATION: pain COMPARISON: 06/20/2018 foot and ankle radiograph s TECHNIQUE: AP and lateral radiographs of the tib ia FINDINGS: No acute fracture or malalignment is identified. And osteochondral lesion is again noted at the medial talar dome. Soft tissue swelling is pres ent at the medial ankle without subcutaneous emphysema. 2 tiny curvilinear foreign bodies up to 3 mm at the medial ankle are likely surgical in nature, and are unchanged. IMPRESSION: Left medial kathie r dome osteochondral lesion again noted. No abnormality of the proximal tibia or fibula. 2018-06-20 EXAM: [facility] DATE: 06/20/2018 1844 hours [facility] r INDICATION: - post surgical infection, r/o osteo COMPARISON: Radiograph on at 2031 hours and magnetic resonance imaging on 02/22/2018 at 0711 hours TECHNIQUE: AP, lateral, and oblique radiographs of the foot FINDINGS: Soft tissue swelli ng with fat stranding about the ankle most pronounced at the medial superior aspect without signs of underlying osteomyelitis, foreign body, or soft tissue air. No acute frac ture or malalignment is iden tified. Interval healing of mildly displaced 5th metatarsal base fracture is seen. IMPRESSION: Soft tissue swelling with fa t stranding about the ankle most pronounced at the medial superior aspect without signs of underlying osteomyelitis, foreign body, or soft tissue air. UT SECTION: ER 2018-06-20 EXAM: XR LEFT ANKLE 3 VIEWS [facility] 18:01:00-00:00 DATE: 06/20/2018 18:01 CDT Center INDICATION: - post surgical infection, r/o osteo COMPARISON: 02/06/2018 TECHNIQUE: AP, lateral and oblique radiographs o f the left ankle DISCUSSION: A large osteocho ndral defect is again noted at the superior medial aspect of the talar dome. No acute fracture or other acute bony or articular abnormality is present. There is a healed defo rmity of the 5th metatarsal base, shown on the prior study as an acute fracture. The ankle mortise is congruent. Soft tissue swelling is seen about the ankle, particularly medially. No subcutaneous emphysema or localized fluid collection is present. IMPRESSION: Soft tissue swel ling about the ankle, particularly medially. Otherwise, no acute abnormality. 2018-02-22 EXAMINATION: MR left ankle without contrast [place] 07:12:00-00:00 HISTORY: M95.8 Other specifi ed acquired deformities of musculoskeletal system - M95.8 Other specified acquired deformities of musculoskeletal system; AGE: 17 years GENDER: Female COMPARISON: Left ankle radiographs 02/06/2018 TECHNIQUE: Multiplanar, mult isequence magnetic resonance imaging of the left ankle and hindfoot is performed with an extremity coil without contrast. FINDINGS: Ligaments: Lateral: * AITFL and PITFL: The anter ior/inferior tibiofibular and posterior/inferior tibiofibular syndesmotic ligaments are intact. * ATFL: Severe grade 2 sprain of the anterior ta lofibular ligament. * CFL: Severe grade 2 sprain Medial: * Deltoid complex: The super ficial and deep components of the deltoid ligament complex including the tibiospring ligament and superomedial calcaneonavicular component of the spring ligament are within normal limits. Tendons: * Medial flexor: Fluid is no yury within the posterior tibialis tendon sheath without intratendinous abnormality. Otherwise, the remaining medial flexor tendons are within normal limits. * Peroneal: The lateral peroneal tendons are int act. * Extensor: The anterior ankle extensor tendons are within normal limits. * Achilles tendon: The Achilles tendon is within normal limits. Plantar fascia: Within normal limits. Muscles: There is normal sig nal intensity and muscle bulk of the intrinsic foot musculature. Cartilage: Noted is made of a 12 x 7 mm osteochondral defect in the medial talar dome with fluid signal undercutting this osteochondral fragment. There is approximately 1 mm of cortical surface depressi on. No displaced osteochondral fragment is ident ified. Bone: Mildly displaced avuls ion fracture of the base of the 5th metatarsal at the peroneus brevis tendon insertion. Proximal fracture fragment is displaced proximally by 6 mm. In addition, there is mild bone marrow contusion in th e cuboid as well as the 3rd and 4th metatarsal bases. Mild bone marrow contusions also noted in the medial malleolus and medial talar body. Soft tissue: There is no sig nificant tibiotalar or subtalar joint effusion.. There is normal fatty signal within the sinus Tarsi. IMPRESSION: 1. 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 2. Mildly displaced avulsion fracture of the base of the 5th metatarsal. Mild bone marrow contusions in the cuboid. 3rd and 4th metatarsals. 3. Severe grade 2 sprains of the anterior talofibular and calcaneofibular ligaments. Mild bone marrow contusions in the medial malleolus and medial talar body. 2018-02-06 EXAM: [facility] 20:01:00-00:00 Left ankle x-ray, 3 view(s). Left foot x-ray, 3 views. CLINICAL HX: - pain post trauma. Age: 17 years. Gender: Female. COMPARISON: None. FINDINGS: Left ankle: Fragmentation at the talar dome medially. Otherwise intact ankle mortise. Mild soft tissue swelling laterally. Left foot: Mildly displaced fracture at the base of the 5th metatarsal. Otherwise intact midfoot alignment. Mild lateral soft tissue swelling. IMPRESSION: 1. Left ankle: Talar dome fr agmentation; favor osteochondral lesion over acute fracture. This can be further evaluated with MRI, if desired clinically. 2. Left foot: Mildly displac ed 5th metatarsal base fracture; favor avulsion injury over joints fracture. 2018-02-06 EXAM: [facility] 20:00:00-00:00 Left ankle x-ray, 3 view(s). Left foot x-ray, 3 views. CLINICAL HX: - pain post trauma. Age: 17 years. Gender: Female. COMPARISON: None. FINDINGS: Left ankle: Fragmentation at the talar dome medially. Otherwise intact ankle mortise. Mild soft tissue swelling laterally. Left foot: Mildly displaced fracture at the base of the 5th metatarsal. Otherwise intact midfoot alignment. Mild lateral soft tissue swelling.
--- NOTE | 2022-10-15 02:08 | EDPHYS ---
Physician Documentation [facility] Name: Morena Fuentes Age: 22 yrs Sex: Female : 2000 Arrival Date: 10/15/2022 Time: 01:33 Bed 19 Private MD: ED Physician Jean Marie Wgagoner HPI: 10/15 02:20 This 22 yrs old Female presents to ER via Ambulatory with complaints of Cyst. rt 02:20 Patient presents to the ED with reported cyst to the back for the past 3 days. Patient rt states it has become more swollen, has become more painful. Denies fever, chills. Reports erythema surrounding it. Denies any purulence. Denies other acute complaints at this time, symptoms are mild in severity, no other aggravating alleviating factors.. 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 - Social history:: Smoking status: Patient reports the use of cigarette tobacco products, denies chronic smoking, but will smoke occasionally. - Family history:: not pertinent. ROS: 02:20 Constitutional: Negative for fever, chills, and weight loss, Neck: Negative for injury, rt pain, and swelling, Cardiovascular: Negative for chest pain, palpitations, and edema, Respiratory: Negative for shortness of breath, cough, wheezing, and pleuritic chest pain, Abdomen/GI: Negative for abdominal pain, nausea, vomiting, diarrhea, and constipation, Neuro: Negative for headache, weakness, numbness, tingling, and seizure, Psych: Negative for depression, anxiety, suicide ideation, homicidal ideation, and hallucinations. 02:20 Skin: Positive for Reports cyst, erythema. Exam: 02:20 Constitutional: This is a well developed, well nourished patient who is awake, alert, rt and in no acute distress. Head/Face: Normocephalic, atraumatic. Chest/axilla: Normal chest wall appearance and motion. Nontender with no deformity. No lesions are appreciated. Cardiovascular: Regular rate and rhythm with a normal S1 and S2. No gallops, murmurs, or rubs. Normal PMI, no JVD. No pulse deficits. Respiratory: Lungs have equal breath sounds bilaterally, clear to auscultation and percussion. No rales, rhonchi or wheezes noted. No increased work of breathing, no retractions or nasal flaring. Abdomen/GI: Soft, non-tender, with normal bowel sounds. No distension or tympany. No guarding or rebound. No evidence of tenderness throughout. MS/ Extremity: Pulses equal, no cyanosis. Neurovascular intact. Full, normal range of motion. Neuro: Awake and alert, GCS 15, oriented to person, place, time, and situation. Cranial nerves II-XII grossly intact. Motor strength 5/5 in all extremities. Sensory grossly intact. Cerebellar exam normal. Normal gait. Psych: Awake, alert, with orientation to person, place and time. Behavior, mood, and affect are within normal limits. 02:20 Skin: Mild amount of swelling at about a 3 cm area of erythema on the back, no obvious purulence, fluctuance noted.. Vital Signs: 01:54 BP 143 / 89; Pulse 94; Resp 16; Temp 98.4; Pulse Ox 100% on R/A; Weight 108.86 kg; kd3 Height 5 ft. 5 in. ; 02:24 BP 130 / 85; Pulse 85; Resp 18 S; Pulse Ox 100% on R/A; ha1 01:54 Body Mass Index 39.94 (108.86 kg, 165.1 cm) kd3 Procedures: 02:20 Ultrasound: Type: Skin, performed by the emergency department physician, Thickening of rt the skin noted, no fluid collections identified. MDM: 01:54 Patient medically screened. rt 02:20 Differential Diagnosis Abscess, cellulitis. Data reviewed: vital signs, nurses notes. rt Test considered but Not performed: Labs: Stable vital signs, labs not indicated. Counseling: I had a detailed discussion with the patient and/or guardian regarding: the historical points, exam findings, and any diagnostic results supporting the discharge/admit diagnosis, the need for outpatient follow up, to return to the emergency department if symptoms worsen or persist or if there are any questions or concerns that arise at home. Administered Medications: No medications were administered Disposition Summary: 10/15/22 02:08 Discharge Ordered Location: Home rt Problem: new rt Symptoms: are unchanged rt Condition: Stable rt Diagnosis - Cellulitis of other sites rt Followup: rt - With: Private Physician - When: 2 - 3 days - Reason: Discharge Instructions: - Discharge Summary Sheet rt - Cellulitis, Adult rt Forms: - Medication Reconciliation Form rt - Thank You Letter rt - Antibiotic Education rt - Prescription Opioid Use rt - Patient Portal Instructions rt Prescriptions: - Clindamycin HCl 300 mg Oral Capsule - take 1 capsule by ORAL route every 6 hours for 10 days; 40 capsule; Refills: 0, rt Product Selection Permitted Signatures: Yashira Watkins RN RN kd3 Jean Marie Waggoner MD MD rt
--- NOTE | 2022-10-15 02:08 | ER ---
Nurse's Notes [facility] Name: Morena Fuentes Age: 22 yrs Sex: Female : 2000 Arrival Date: 10/15/2022 Time: 01:33 Bed 19 Private MD: Diagnosis: Cellulitis of other sites Presentation: 10/15 01:54 Chief complaint: Patient states: I have had a cyst on my back for 3 days and it hurts a kd3 lot. I am worried about it because i am diabetic. Coronavirus screen: Vaccine status: Patient reports receiving the 2nd dose of the covid vaccine. Ebola Screen: No symptoms or risks identified at this time. Initial Sepsis Screen: Does the patient meet any 2 criteria? No. Patient's initial sepsis screen is negative. Does the patient have a suspected source of infection? No. Patient's initial sepsis screen is negative. Risk Assessment: Do you want to hurt yourself or someone else?. Onset of symptoms was October 15, 2022. 01:54 Method Of Arrival: Ambulatory kd3 01:54 Acuity: OSCAR 4 kd3 Triage Assessment: 01:56 General: Appears uncomfortable, Behavior is calm, cooperative. Pain: Complains of pain kd3 in thoracic area. 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 - Social history:: Smoking status: Patient reports the use of cigarette tobacco products, denies chronic smoking, but will smoke occasionally. - Family history:: not pertinent. Screenin:54 [facility] ED Fall Risk Assessment (Adult) History of falling in the last 3 months, ha1 including since admission No falls in past 3 months (0 pts) Confusion or Disorientation No (0 pts) Intoxicated or Sedated No (0 pts) Impaired Gait No (0 pts) Mobility Assist Device Used No (0 pt) Altered Elimination No (0 pt) Score/Fall Risk Level 0 - 2 = Low Risk Oriented to surroundings, Maintained a safe environment, Educated pt \T\ family on fall prevention, incl call for assistance when getting out of bed. Abuse screen: Denies threats or abuse. Denies injuries from another. Nutritional screening: No deficits noted. Tuberculosis screening: No symptoms or risk factors identified. Assessment: 01:54 General: Appears comfortable, Behavior is calm, cooperative. Pain: Complains of pain in ha1 cyst on the right upper back Pain currently is 9 out of 10 on a pain scale. Quality of pain is described as sharp, Aggravated by repositioning. Neuro: Level of Consciousness is awake, alert, obeys commands, Oriented to person, place, time, situation. Cardiovascular: Patient's skin is warm and dry. Respiratory: Airway is patent Respiratory effort is even, unlabored, Respiratory pattern is regular, symmetrical. GI: No signs and/or symptoms were reported involving the gastrointestinal system. Derm: Skin is pink, warm \T\ dry. Musculoskeletal: Circulation, motion, and sensation intact. Range of motion: intact in all extremities. 02:23 Reassessment: Patient and/or family updated on plan of care and expected duration. Pain ha1 level reassessed. Patient is alert, oriented x 3, equal unlabored respirations, skin warm/dry/pink. Vital Signs: 01:54 BP 143 / 89; Pulse 94; Resp 16; Temp 98.4; Pulse Ox 100% on R/A; Weight 108.86 kg; kd3 Height 5 ft. 5 in. ; 02:24 BP 130 / 85; Pulse 85; Resp 18 S; Pulse Ox 100% on R/A; ha1 01:54 Body Mass Index 39.94 (108.86 kg, 165.1 cm) kd3 ED Course: 01:39 Patient arrived in ED. ja2 01:45 Jean Marie Waggoner MD is Attending Physician. rt 01:54 Patient has correct armband on for positive identification. Placed in gown. Bed in low ha1 position. Call light in reach. Side rails up X 1. 01:56 Anna Troncoso, ELIDIA is Primary Nurse. ha1 01:56 Triage completed. kd3 01:56 Arm band placed on right wrist. kd3 02:24 No provider procedures requiring assistance completed. Patient did not have IV access ha1 during this emergency room visit. 02:25 Provided Education on: follow up and medication administration.. ha1 Administered Medications: No medications were administered Medication: 02:25 VIS not applicable for this client. ha1 Outcome: 02:08 Discharge ordered by . rt 02:24 Discharged to home ambulatory. ha1 02:24 Condition: stable 02:24 Discharge instructions given to patient, Instructed on discharge instructions, follow up and referral plans. medication usage, Demonstrated understanding of instructions, follow-up care, medications, Prescriptions given X 1. 02:26 Patient left the ED. ha1 Signatures: Linda Sheets2 Yashira Watkins, RN RN kd3 Anna Troncoso RN RN ha1 Jean Marie Waggoner MD MD rt
[2022-10-15 02:53] VITALS: TEMP 98.4; O2SAT 100
[2022-10-15 02:55] VITALS: BP 130/85
== END 2022-10-15 02:26 | disposition home or self-care (01) ==
LOC: ER 01:33
DX: L03.312 Cellulitis of back [any part except buttock and flank] (principal)
CPT/HCPCS: 99283

== ENCOUNTER 2024-03-20 15:51 | Emergency (ER) | payer SELFPAY ==
--- NOTE | 2024-03-20 16:31 | ER ---
Nurse's Notes [facility] Name: Morena Fuentes Age: 23 yrs Sex: Female : 2000 Arrival Date: 03/20/2024 Time: 15:51 Bed 11 Private MD: Diagnosis: Cellulitis of back [any part except buttock] Presentation: 03/20 16:10 Chief complaint: Patient states: CYST ON BACK SINCE LAST WEEK PAINFUL AND HARD TO SLEEP db NOW. UNCONTROLLED DIABETIC. Coronavirus screen: Client denies travel out of the [place] in the last 14 days. At this time, the client does not indicate any symptoms associated with coronavirus-19. Ebola Screen: Patient negative for fever greater than or equal to 101.5 degrees Fahrenheit, and additional compatible Ebola Virus Disease symptoms Patient denies exposure to infectious person. Patient denies travel to an Ebola-affected area in the 21 days before illness onset. No symptoms or risks identified at this time. Initial Sepsis Screen: Does the patient meet any 2 criteria? No. Patient's initial sepsis screen is negative. Does the patient have a suspected source of infection? No. Patient's initial sepsis screen is negative. Risk Assessment: Do you want to hurt yourself or someone else? Patient reports no desire to harm self or others. Onset of symptoms was March 14, 2024. 16:10 Method Of Arrival: Ambulatory db 16:10 Acuity: OSCAR 3 db Triage Assessment: 16:10 General: Appears in no apparent distress. comfortable, Behavior is calm, cooperative. db Pain: Complains of pain in back. Derm: Abscess located on back. 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 - Infectious Disease History:: Denies. - Social history:: Smoking status: unknown. Screenin:43 [facility] ED Fall Risk Assessment (Adult) History of falling in the last 3 months, db including since admission No falls in past 3 months (0 pts) Confusion or Disorientation No (0 pts) Intoxicated or Sedated No (0 pts) Impaired Gait No (0 pts) Mobility Assist Device Used No (0 pt) Altered Elimination No (0 pt) Score/Fall Risk Level 0 - 2 = Low Risk Oriented to surroundings, Maintained a safe environment. Abuse screen: Denies threats or abuse. Denies injuries from another. Nutritional screening: No deficits noted. Tuberculosis screening: No symptoms or risk factors identified. Assessment: 16:43 Reassessment: SEE TRIAGE FOR INITIAL ASSESSMENT. db Vital Signs: 16:10 BP 140 / 93; Pulse 98; Resp 16; Temp 98; Pulse Ox 97% ; Weight 108.86 kg; Height 5 ft. db 6 in. ; Pain 8/10; 16:10 Body Mass Index 38.74 (108.86 kg, 167.64 cm) db 16:10 Pain Scale: Adult db ED Course: 15:54 Patient arrived in ED. im 15:56 Phillip Winston [facility]C [facility] dr5 15:56 oJrdon Doty MD is Attending Physician. dr5 16:10 Arm band placed on Patient placed in waiting room. db 16:17 Triage completed. db 16:43 Anaya Pelaez, RN is Primary Nurse. db 16:43 Patient has correct armband on for positive identification. Bed in low position. Call db light in reach. Side rails up X 1. Provided Education on: DISCHARGE AND FOLLOWUP . 16:43 No provider procedures requiring assistance completed. Patient did not have IV access db during this emergency room visit. Administered Medications: No medications were administered Medication: 16:43 VIS not applicable for this client. db Point of Care Testing: Blood Glucose: 16:10 Blood Glucose: 217 mg/dL; db Ranges: Outcome: 16:31 Discharge ordered by MD. dr5 16:43 Discharged to home ambulatory, db 16:43 Condition: stable 16:43 Discharge instructions given to patient, Instructed on discharge instructions, follow up and referral plans. Prescriptions given X 1, 16:44 Patient left the ED. db Signatures: Anaya Pelaez, RN RN db Dee Coleman im Phillip Winston FNP-C LEAD QUALITY TECHNICIAN-Cdr5
--- NOTE | 2024-03-20 16:31 | EDPHYS ---
Physician Documentation [facility] Name: Morena Fuentes Age: 23 yrs Sex: Female : 2000 Arrival Date: 03/20/2024 Time: 15:51 Bed 11 Private MD: ED Physician Jordon Doty HPI: 03/20 16:35 This 23 yrs old Female presents to ER via Ambulatory with complaints of Cyst. dr5 16:36 Onset: The symptoms/episode began/occurred 1 week(s) ago. Patient is a 23-year-old dr5 female with history of diabetes coming in with infected cyst on back for the past week. Patient reports she has been here before for the same thing, received antibiotics and it healed. 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 - Infectious Disease History:: Denies. - Social history:: Smoking status: unknown. ROS: 16:36 Constitutional: as per hpi dr5 Exam: 16:36 Constitutional: This is a well developed, well nourished patient who is awake, alert, dr5 and in no acute distress. Head/Face: Normocephalic, atraumatic. Eyes: Pupils equal round and reactive to light, extra-ocular motions intact. Lids and lashes normal. Conjunctiva and sclera are non-icteric and not injected. Cornea within normal limits. Periorbital areas with no swelling, redness, or edema. Neck: Trachea midline, no thyromegaly or masses palpated, and no cervical lymphadenopathy. Supple, full range of motion without nuchal rigidity, or vertebral point tenderness. No Meningismus. Chest/axilla: Normal chest wall appearance and motion. Nontender with no deformity. No lesions are appreciated. Cardiovascular: Regular rate and rhythm with a normal S1 and S2. Normal PMI, no JVD. No pulse deficits. Respiratory: Lungs have equal breath sounds bilaterally, clear to auscultation. No rales, rhonchi or wheezes noted. No increased work of breathing, no retractions or nasal flaring. Back: No spinal tenderness. No costovertebral tenderness. Full range of motion. Neuro: Awake and alert, GCS 15, oriented to person, place, time, and situation. Cranial nerves II-XII grossly intact. Motor strength 5/5 in all extremities. Sensory grossly intact. Cerebellar exam normal. Normal gait. 16:36 Skin: cellulitis, that is mild, on the thoracic area, 16:36 Skin: cellulitis, No fluctuance noted over infected cyst. Mild redness with tenderness dr5 to palpation., Vital Signs: 16:10 BP 140 / 93; Pulse 98; Resp 16; Temp 98; Pulse Ox 97% ; Weight 108.86 kg; Height 5 ft. db 6 in. ; Pain 8/10; 16:10 Body Mass Index 38.74 (108.86 kg, 167.64 cm) db 16:10 Pain Scale: Adult db MDM: 15:57 Medical Screening Exam initiated dr5 16:36 Differential diagnosis: viral Infection, Abscess, Cellulitis. dr5 16:36 Data reviewed: vital signs, nurses notes. Care significantly affected by the following dr5 chronic conditions: Diabetes. Care significantly affected by the following Social Determinants of Health: Poor access to healthcare and/or lack of insurance, Poor access to transportation, Problems related to employment. Counseling: I had a detailed discussion with the patient and/or guardian regarding the historical points, exam findings, and any diagnostic results supporting the discharge/admit diagnosis, the need for outpatient follow up, for definitive care, a toy electric train repairer, a family practitioner, to return to the emergency department if symptoms worsen or persist or if there are any questions or concerns that arise at home. ED course: Will give patient course of clindamycin that she has had prior. Discussed diagnosis with the patient and need for primary care follow-up as well as dermatology follow-up to have cyst removed after infection has resolved. All questions answered. Patient is agreeable to plan and will follow-up with primary care doctor.. 03/20 16:28 Order name: Glucose, Ancillary Testing; Complete Time: 16:30 EDMS Administered Medications: No medications were administered Point of Care Testing: Blood Glucose: 16:10 Blood Glucose: 217 mg/dL; db Ranges: Critical Glucose Levels:Adult <50 mg/dl or >400 mg/dl <40 mg/dl or >180 mg/dl Disposition Summary: 03/20/24 16:31 Discharge Ordered Notes: Location: Home dr5 Condition: Stable dr5 Diagnosis - Cellulitis of back [any part except buttock] dr5 Followup: dr5 - With: Emergency Department - When: As needed - Reason: Worsening of condition Followup: dr5 - With: Private Physician - When: 1 - 2 days - Reason: Recheck today's complaints, Continuance of care, Re-evaluation by your physician Discharge Instructions: - Discharge Summary Sheet dr5 - Cellulitis, Adult dr5 - Epidermoid Cyst dr5 Forms: - Medication Reconciliation Form dr5 - Antibiotic Education dr5 - Patient Portal Instructions dr5 - Leadership Thank You Letter dr5 Prescriptions: - Clindamycin HCl 300 mg Oral Capsule - take 1 capsule ORAL route every 6 hours for 10 days; 40 capsule; Refills: 0, dr5 Product Selection Permitted Addendum: 03/25/2024 12:59 I was immediately available for consultation during this patient's visit. I did not e c2 personally see the patient or discuss the patient with the GISELA. . Signatures: Anaya Pelaez RN RN Jordon Carey MD MD ec2 Phillip Winston, DENISE-C LICENSED NUCLEAR OPERATOR-Cdr5 Corrections: (The following items were deleted from the chart) 03/20 16:39 16:36 Constitutional: This is a well developed, well nourished patient who is awake, dr5 alert, and in no acute distress. Head/Face: Normocephalic, atraumatic. Eyes: Pupils equal round and reactive to light, extra-ocular motions intact. Lids and lashes normal. Conjunctiva and sclera are non-icteric and not injected. Cornea within normal limits. Periorbital areas with no swelling, redness, or edema. Neck: Trachea midline, no thyromegaly or masses palpated, and no cervical lymphadenopathy. Supple, full range of motion without nuchal rigidity, or vertebral point tenderness. No Meningismus. Chest/axilla: Normal chest wall appearance and motion. Nontender with no deformity. No lesions are appreciated. Cardiovascular: Regular rate and rhythm with a normal S1 and S2. Normal PMI, no JVD. No pulse deficits. Respiratory: Lungs have equal breath sounds bilaterally, clear to auscultation. No rales, rhonchi or wheezes noted. No increased work of breathing, no retractions or nasal flaring. Back: No spinal tenderness. No costovertebral tenderness. Full range of motion. Neuro: Awake and alert, GCS 15, oriented to person, place, time, and situation. Cranial nerves II-XII grossly intact. Motor strength 5/5 in all extremities. Sensory grossly intact. Cerebellar exam normal. Normal gait. dr5
[2024-03-20 17:01] VITALS: BP 140/93; TEMP 98; O2SAT 97
== END 2024-03-20 16:44 | disposition home or self-care (01) ==
LOC: ER 15:51
DX: L03.312 Cellulitis of back [any part except buttock and flank] (principal); E11.9 Type 2 diabetes mellitus without complications
CPT/HCPCS: 82947; 99283